=== PATIENT | male | born 1955 | race Caucasian/White ===

== ENCOUNTER 2019-12-13 13:52 | Outpatient (REF) | payer BC, SELFPAY | END 2019-12-13 13:53 | disposition home or self-care (01) | LOC: HO.SCI 13:52 | DX: Z13.89 Encounter for screening for other disorder (principal) ==

== ENCOUNTER 2019-12-25 13:55 | Outpatient (REF) | payer BC, SELFPAY ==
--- NOTE | 2019-12-25 | US_ITS ---
EXAMINATION: US EXTRACRANIAL CAROTID DUPLEX, BILATERAL CLINICAL INFORMATION: Conclusion an stenosis of left carotid artery. COMPARISON: None TECHNIQUE: Real-time ultrasound and Doppler techniques (integrating B-mode 2-D vascular images, Doppler spectral analysis and color-flow Doppler imaging) were utilized to interrogate the extracranial carotid arteries, the vertebral arteries and proximal subclavian arteries bilaterally. The degree of stenosis is determined by criteria similar to NASCET. FINDINGS: Right Side: 1. There is no atherosclerotic plaque seen in the bifurcation/proximal ICA region. 2. The common carotid artery PSV proximally is 91 cm/s and distally 83 cm/s. 3. The proximal internal carotid artery velocities are 67 cm/s systolic and 28 cm/s diastolic. 4. The proximal external carotid artery PSV is 94 cm/s. 5. The vertebral artery shows antegrade flow. 6. The subclavian artery waveforms are normal. Left Side: 1. There is no atherosclerotic plaque seen in the bifurcation/proximal ICA region. 2. The common carotid artery PSV proximally is 135 cm/s and distally 90 cm/s. 3. The proximal internal carotid artery velocities are 59 cm/s systolic and 16 cm/s diastolic. 4. The proximal external carotid artery PSV is 76 cm/s. 5. The vertebral artery shows antegrade flow. 6. The subclavian artery waveforms are normal. IMPRESSION: 1. RIGHT: Normal right internal carotid artery without atherosclerotic plaque or hemodynamically significant stenosis. 2. LEFT: Normal left internal carotid artery without atherosclerotic plaque or hemodynamically significant stenosis.
[2019-12-25 15:14] LABS: MANUAL DIFF FLAG NO
[2019-12-25 15:20] LABS: Basophils Percent Auto 0.6 % (0-2); Eosinophils Absolute Auto 0.3 X10*3/uL (0.0-0.4); Eosinophils Percent Auto 5.8 % (0-4); Hematocrit 43.8 % (42-52); Hemoglobin 14.5 g/dl (14.0-18.0); Imm Gran Abs Auto 0.02 X10*3/uL (0.00-0.03); Imm Gran Pct Auto 0.4 % (0.0-0.4); Lymphocytes Absolute Auto 1.4 X10*3/uL (1.2-4.9); Lymphocytes Percent Auto 26.3 % (20-40); Mean Corpuscular HGB Conc 33.1 g/dl (31.0-36.0); Mean Corpuscular Hemoglobin 30.7 pg (27.0-33.0); Mean Corpuscular Volume 92.8 fL (80-98); Mean Platelet Volume 9.9 fL (9.4-12.4); Monocytes Absolute Auto 0.5 X10*3/uL (0.1-1.2); Monocytes Percent Auto 10.1 % (2-11); Neutrophils Absolute Auto 3.1 X10*3/uL (2.0-8.3); Neutrophils Percent Auto 56.8 % (45-73); Platelet Count 209 X10*3/uL (160-400); Red Blood Count 4.72 X10*6/uL (4.60-5.80); Red Cell Distribution Width 13.5 % (11.0-16.0); White Blood Count 5.4 X10*3/uL (4.8-10.8)
[2019-12-25 15:50] LABS: Alanine Aminotransferase 26 U/L (0-40); Albumin Level 4.3 g/dL (3.5-5.0); Alkaline Phosphatase 51 U/L (39-117); Anion Gap 11 (12-20); Aspartate Amino Transferase 23 U/L (5-37); Bilirubin Total 0.7 mg/dL (0.0-1.0); Blood Urea Nitrogen 16 mg/dL (9-16); Calcium 9.5 mg/dL (8.4-10.2); Carbon Dioxide 29 mmol/L (22-29); Chloride 105 mmol/L (96-108); Cholesterol 216 mg/dL; Estimated Glomerular Filt Rate 60; Glucose Random 100 mg/dL (60-115); HDL Cholesterol 47 mg/dL; LDL Cholesterol Calculated 147 mg/dl; Magnesium 2.1 mg/dL (1.6-2.6); Potassium 5.2 mmol/l (3.3-5.1); Sodium 140 mmol/L (135-145); Total Protein 7.1 g/dL (6.5-8.0); Triglycerides 112 mg/dL
[2019-12-25 16:49] LABS: Prostate Specific Antigen 5.99 ng/mL (<0.05-4.0)
[2019-12-31 11:27] LABS: Testosterone, Total 671 ng/dL (250-1100)
== END 2019-12-25 13:56 | disposition home or self-care (01) ==
LOC: HO.US 13:55
PROVIDERS: PCP Internal Medicine Medical Oncology; Visit Provider Internal Medicine Medical Oncology
DX: I65.22 Occlusion and stenosis of left carotid artery (principal)
CPT/HCPCS: 36415; 80053; 80061; 83735; 84153; 84403; 85025; 93880

== ENCOUNTER 2020-01-18 10:15 | Outpatient (REF) | payer BC, SELFPAY ==
[2020-01-18 11:31] LABS: Cholesterol 216 mg/dL; HDL Cholesterol 45 mg/dL; LDL Cholesterol Calculated 146 mg/dl; Triglycerides 127 mg/dL
[2020-01-18 11:52] LABS: Free T4 (Free Thyroxine) 1.03 ng/dL (0.71-1.85); Prostate Specific Antigen 1.92 ng/mL (<0.05-4.0); Thyroid Stimulating Hormone 3.09 uIU/mL (0.32-4.0)
[2020-01-22 16:42] LABS: Testosterone, Total 651 ng/dL (250-1100)
== END 2020-01-18 10:16 | disposition home or self-care (01) ==
LOC: HO.LAB 10:15
PROVIDERS: Visit Provider Internal Medicine Medical Oncology
DX: I10 Essential (primary) hypertension (principal)
CPT/HCPCS: 80061; 84153; 84403; 84439; 84443

== ENCOUNTER 2022-11-15 13:33 | Outpatient (REF) | payer BC, SELFPAY ==
[2022-11-15 13:58] LABS: MANUAL DIFF FLAG NO
[2022-11-15 14:33] LABS: Basophils Percent Auto 0.8 % (0-2); Eosinophils Absolute Auto 0.3 X10*3/uL (0.0-0.4); Eosinophils Percent Auto 4.8 % (0-4); Hematocrit 43.7 % (42.0-52.0); Hemoglobin 14.8 g/dl (14.0-18.0); Imm Gran Abs Auto 0.01 X10*3/uL (0.00-0.03); Imm Gran Pct Auto 0.2 % (0.0-0.4); Lymphocytes Absolute Auto 1.5 X10*3/uL (1.2-4.9); Lymphocytes Percent Auto 29.6 % (20-40); Mean Corpuscular HGB Conc 33.9 g/dl (31.0-36.0); Mean Corpuscular Hemoglobin 31.2 pg (27.0-33.0); Mean Platelet Volume 10.5 fL (9.4-12.4); Monocytes Absolute Auto 0.6 X10*3/uL (0.1-1.2); Neutrophils Absolute Auto 2.8 x10*3/uL (2.0-8.3); Neutrophils Percent Auto 53.6 % (45-73); Platelet Count 206 X10*3/uL (160-400); Red Blood Count 4.75 X10*6/uL (4.60-5.80); White Blood Count 5.2 X10*3/uL (4.8-10.8)
[2022-11-15 15:35] LABS: Alanine Aminotransferase 22 U/L (0-40); Albumin Level 4.2 g/dL (3.5-5.0); Alkaline Phosphatase 53 U/L (39-117); Anion Gap 12 (12-20); Aspartate Amino Transferase 21 U/L (5-37); Bilirubin Total 0.9 mg/dL (0.0-1.0); Blood Urea Nitrogen 19 mg/dL (9-16); Carbon Dioxide 27 mmol/L (22-29); Chloride 107 mmol/L (96-108); Cholesterol 198 mg/dL (<200); Estimated Glomerular Filt Rate > 60; Glucose Fasting 97 mg/dL (60-99); HDL Cholesterol 42 mg/dL (>40); Iron 149 mcg/dL (45-160); LDL Cholesterol Calculated 128 mg/dL (<100); Percent Iron Saturation 58 % (15-50); Potassium 4.6 mmol/L (3.3-5.1); Sodium 141 mmol/L (135-145); Total Iron Binding Capacity 256 mcg/dL (228-428); Total Protein 7.1 g/dL (6.5-8.0); Triglycerides 142 mg/dL (<150); Unsaturated Iron Binding 107 ug/dL
[2022-11-15 15:39] LABS: Ferritin 331 ng/mL (20-250); T4 Thyroxine 8.9 ug/dL (4.5-12.0); Thyroid Stimulating Hormone 0.97 uIU/mL (0.32-4.0); Vitamin D 25-OH Total 49.8 ng/mL (>30)
[2022-11-15 15:41] LABS: Prostate Specific Antigen 1.05 ng/mL (<0.05-4.0)
[2022-11-17 04:49] LABS: T3 Uptake 27 % (22-35)
== END 2022-11-15 13:34 | disposition home or self-care (01) ==
LOC: HO.LAB 13:33
PROVIDERS: Visit Provider Internal Medicine Medical Oncology
DX: E66.3 Overweight (principal); R53.83 Other fatigue; E03.9 Hypothyroidism, unspecified; E55.9 Vitamin D deficiency, unspecified; Z12.5 Encounter for screening for malignant neoplasm of prostate; I10 Essential (primary) hypertension; L30.9 Dermatitis, unspecified; D64.9 Anemia, unspecified
CPT/HCPCS: 36415; 80053; 80061; 82306; 82728; 83540; 84153; 84436; 84443; 84479; 85025

== ENCOUNTER 2023-05-24 16:36 | Outpatient (REF) | payer MEDICARE, SELFPAY ==
[2023-05-24 16:50] LABS: MANUAL DIFF FLAG NO
[2023-05-24 17:41] LABS: Basophils Percent Auto 0.7 % (0-2); Eosinophils Absolute Auto 0.3 X10*3/uL (0.0-0.4); Eosinophils Percent Auto 5.2 % (0-4); Hematocrit 43.8 % (42.0-52.0); Hemoglobin 14.9 g/dl (14.0-18.0); Imm Gran Abs Auto 0.01 X10*3/uL (0.00-0.03); Imm Gran Pct Auto 0.2 % (0.0-0.4); Lymphocytes Absolute Auto 1.8 X10*3/uL (1.2-4.9); Lymphocytes Percent Auto 32.9 % (20-40); Mean Corpuscular Volume 91.1 fL (80.0-98.0); Mean Platelet Volume 10.3 fL (9.4-12.4); Monocytes Absolute Auto 0.6 X10*3/uL (0.1-1.2); Monocytes Percent Auto 11.2 % (2-11); Neutrophils Absolute Auto 2.7 x10*3/uL (2.0-8.3); Neutrophils Percent Auto 49.8 % (45-73); Platelet Count 177 X10*3/uL (160-400); Red Blood Count 4.81 X10*6/uL (4.60-5.80); Red Cell Distribution Width 13.4 % (11.0-16.0); White Blood Count 5.4 X10*3/uL (4.8-10.8)
[2023-05-24 18:31] LABS: Alanine Aminotransferase 18 U/L (0-40); Albumin Level 4.1 g/dL (3.5-5.0); Alkaline Phosphatase 53 U/L (39-117); Anion Gap 10 (12-20); Aspartate Amino Transferase 18 U/L (5-37); Bilirubin Total 0.7 mg/dL (0.0-1.0); Blood Urea Nitrogen 20 mg/dL (9-16); Calcium 9.4 mg/dL (8.4-10.2); Carbon Dioxide 29 mmol/L (22-29); Chloride 106 mmol/L (96-108); Estimated Glomerular Filt Rate 57; Glucose Random 100 mg/dL (60-115); Potassium 3.9 mmol/L (3.3-5.1); Sodium 141 mmol/L (135-145); Total Protein 7.2 g/dL (6.5-8.0)
[2023-05-24 18:47] LABS: Free T4 (Free Thyroxine) 1.11 ng/dL (0.71-1.85); Thyroid Stimulating Hormone 0.91 uIU/mL (0.32-4.0); Vitamin D 25-OH Total 48.6 ng/mL (>30)
== END 2023-05-24 16:37 | disposition home or self-care (01) ==
LOC: HO.LAB 16:36
PROVIDERS: PCP Internal Medicine Medical Oncology; Visit Provider Internal Medicine Medical Oncology
DX: E66.3 Overweight (principal); I10 Essential (primary) hypertension; E03.8 Other specified hypothyroidism; E55.9 Vitamin D deficiency, unspecified
CPT/HCPCS: 36415; 80053; 82306; 84439; 84443; 85025

== ENCOUNTER 2024-01-12 11:41 | Outpatient (REF) | payer MEDICARE, SELFPAY ==
[2024-01-12 12:06] LABS: MANUAL DIFF FLAG NO
[2024-01-12 12:50] LABS: Basophils Absolute Auto 0.1 X10*3/uL (0.0-0.2); Basophils Percent Auto 0.9 % (0-2); Eosinophils Absolute Auto 0.3 X10*3/uL (0.0-0.4); Eosinophils Percent Auto 4.9 % (0-4); Hematocrit 43.5 % (42.0-52.0); Hemoglobin 14.5 g/dl (14.0-18.0); Imm Gran Abs Auto 0.02 X10*3/uL (0.00-0.03); Imm Gran Pct Auto 0.4 % (0.0-0.4); Lymphocytes Absolute Auto 1.7 X10*3/uL (1.2-4.9); Lymphocytes Percent Auto 29.1 % (20-40); Mean Corpuscular HGB Conc 33.3 g/dl (31.0-36.0); Mean Corpuscular Hemoglobin 30.6 pg (27.0-33.0); Mean Corpuscular Volume 91.8 fL (80.0-98.0); Mean Platelet Volume 9.9 fL (9.4-12.4); Monocytes Absolute Auto 0.6 X10*3/uL (0.1-1.2); Monocytes Percent Auto 10.9 % (2-11); Neutrophils Absolute Auto 3.1 x10*3/uL (2.0-8.3); Neutrophils Percent Auto 53.8 % (45-73); Platelet Count 217 X10*3/uL (160-400); Red Blood Count 4.74 X10*6/uL (4.60-5.80); Red Cell Distribution Width 13.4 % (11.0-16.0); White Blood Count 5.7 X10*3/uL (4.8-10.8)
[2024-01-12 13:34] LABS: Alanine Aminotransferase 32 U/L (0-40); Albumin Level 4.2 g/dL (3.5-5.0); Alkaline Phosphatase 59 U/L (39-117); Anion Gap 11 (12-20); Aspartate Amino Transferase 29 U/L (5-37); Blood Urea Nitrogen 19 mg/dL (9-16); Calcium 9.7 mg/dL (8.4-10.2); Carbon Dioxide 26 mmol/L (22-29); Chloride 107 mmol/L (96-108); Cholesterol 204 mg/dL (<200); Estimated Glomerular Filt Rate 59; Glucose Fasting 99 mg/dL (60-99); HDL Cholesterol 55 mg/dL (>40); LDL Cholesterol Calculated 131 mg/dL (<100); Potassium 4.6 mmol/L (3.3-5.1); Sodium 139 mmol/L (135-145); Total Protein 7.4 g/dL (6.5-8.0); Triglycerides 94 mg/dL (<150)
[2024-01-12 13:41] LABS: Free T4 (Free Thyroxine) 1.11 ng/dL (0.71-1.85); Thyroid Stimulating Hormone 1.75 uIU/mL (0.32-4.0)
== END 2024-01-12 11:42 | disposition home or self-care (01) ==
LOC: HO.LAB 11:41
PROVIDERS: PCP Internal Medicine Medical Oncology; Visit Provider Internal Medicine Medical Oncology
DX: E66.3 Overweight (principal); I10 Essential (primary) hypertension; E03.9 Hypothyroidism, unspecified
CPT/HCPCS: 36415; 80053; 80061; 84439; 84443; 85025

== ENCOUNTER 2024-05-17 10:33 | Outpatient (REF) | payer MEDICARE, SELFPAY ==
[2024-05-17 11:01] LABS: MANUAL DIFF FLAG NO
[2024-05-17 11:11] LABS: Basophils Absolute Auto 0.1 X10*3/uL (0.0-0.2); Basophils Percent Auto 0.9 % (0-2); Eosinophils Absolute Auto 0.3 X10*3/uL (0.0-0.4); Eosinophils Percent Auto 4.4 % (0-4); Hematocrit 41.1 % (42.0-52.0); Hemoglobin 14.2 g/dl (14.0-18.0); Imm Gran Abs Auto 0.02 X10*3/uL (0.00-0.03); Imm Gran Pct Auto 0.3 % (0.0-0.4); Lymphocytes Absolute Auto 1.9 X10*3/uL (1.2-4.9); Lymphocytes Percent Auto 27.4 % (20-40); Mean Corpuscular HGB Conc 34.5 g/dl (31.0-36.0); Mean Corpuscular Hemoglobin 31.1 pg (27.0-33.0); Mean Corpuscular Volume 90.1 fL (80.0-98.0); Mean Platelet Volume 9.6 fL (9.4-12.4); Monocytes Absolute Auto 0.7 X10*3/uL (0.1-1.2); Monocytes Percent Auto 10.2 % (2-11); Neutrophils Percent Auto 56.8 % (45-73); Platelet Count 180 X10*3/uL (160-400); Red Blood Count 4.56 X10*6/uL (4.60-5.80); Red Cell Distribution Width 13.5 % (11.0-16.0)
[2024-05-17 11:53] LABS: Alanine Aminotransferase 28 U/L (0-40); Albumin Level 3.8 g/dL (3.5-5.0); Alkaline Phosphatase 60 U/L (39-117); Anion Gap 8 (12-20); Aspartate Amino Transferase 25 U/L (5-37); Bilirubin Total 0.7 mg/dL (0.0-1.0); Blood Urea Nitrogen 27 mg/dL (9-16); Carbon Dioxide 26 mmol/L (22-29); Chloride 110 mmol/L (96-108); Cholesterol 188 mg/dL (<200); Estimated Glomerular Filt Rate 50; Glucose Fasting 90 mg/dL (60-99); HDL Cholesterol 48 mg/dL (>40); LDL Cholesterol Calculated 125 mg/dL (<100); Sodium 140 mmol/L (135-145); Total Protein 7.1 g/dL (6.5-8.0); Triglycerides 75 mg/dL (<150)
[2024-05-17 12:09] LABS: Free T4 (Free Thyroxine) 1.08 ng/dL (0.71-1.85); Thyroid Stimulating Hormone 2.32 uIU/mL (0.32-4.0)
--- OUTSIDE RECORDS SUMMARY | 2024-05-17 13:17 | XMS_ITS ---
Author Organization Maury Carey III, MD Address [address] [place] [place] [address] Care Team Providers Care Coin Box Collector Name Role Phone Maury Carey Primary Care Provider REASON FOR VISIT Rx [...] Date Provider Diagnosis Maury Carey III, MD [address] [place] [address] [place] [address] 11/23/2023 Maury Carey Plan Of Treatment Medication Medication Name Sig Start Date Stop Date Notes buPROPion HCl ER (SR) 100 MG 1 tablet in the morning Orally Once a day for 30 days 05/24/2023 Next Appt Details Provider Name:Maury Carey, 05/21/2024 10:30:00 AM, [address] [place] [address] [place], [address], Provider Name:Maury Carey, 01/21/2025 03:00:00 PM, [address] [place] [address] [place], [address], Progress Notes * Javier VUOB:1955 (68 yo M)Acc No.[id number]:11/23/2023 Patient:?Quique Vu :1955???Age:68 Y???Sex:Male Address: [address], [place], [address] * Refills? Refill buPROPion HCl ER (SR) Tablet Extended Release 12 Hour, 100 MG, Orally, 30 Tablet, 1 tablet in the morning, Once a day, 30 days, Refills=11 * true * Date:? Generated for Olga Lidia rogers/Helen/eTransmitting on:?05/17/2024 01:17 PM EDT
--- OUTSIDE RECORDS SUMMARY | 2024-05-17 13:17 | XMS_ITS ---
Author Organization Maury Carey III, MD Address [address] [address] Care Team Providers Care Web Marketing Intern Name Role Phone Maury Carey Primary Care Provider REASON FOR VISIT Follow Up Social History Sex Assigned At : Social History Observation Description Sex Assigned At Male Encounters Encounter Location Date Provider Diagnosis Maury Carey III, MD [address] [place] [address] [address] [facility] [facility] [place] [address] 11/25/2023 Maury Carey Plan Of Treatment Next Appt Details Provider Name:Maury Carey, 05/21/2024 10:30:00 AM, [address] [place] [address] [place], [address], Provider Name:Maury Carey, 01/21/2025 03:00:00 PM, [address] [place] [address] [place], [address], Progress Notes * Javier COLESOB:1955 (68 yo M)Acc No.[id number]:11/25/2023 Progress Notes Patient:?Quique COLES Provider:?Maury Carey MD :1955???Age:68 Y???Sex:Male Frank e:11/25/2023 [address] [facility] [id number] Subjective: * Chief Complaints: * ???1. Follow Up. * Medical History:? Objective: * Vitals:? Assessment: Plan: * Treatment: * Images: * The named appointment provid er may or may not be the originator of this progress note, and it is not deemed complete until electronically signed by the appointment provider. Sign off status: Pending * Provider:?Maury Carey MD Date:?11/06 Generated for Olga Lidia rogers/Helen/Yohana on:?05/17/2024 01:17 PM EDT
--- OUTSIDE RECORDS SUMMARY | 2024-05-17 13:17 | XMS_ITS ---
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 Name Role Phone Maury Carey Primary Care Provider Allergies Allergen (clinical drug [...] Date Provider Diagnosis Maury Carey III, MD [address] [place] [address] [place], [place] [id number] 01/17/2024 Maury Carey Hypothyroidism E03.9 ; Essential [...] Up: 4 Months, Reason: OV Provider Name:Maury Grijalvane, 05/21/2024 10:30:00 AM, [address] [place] [address] [address], [place], [phone], Provider Name:Maury Grijalvane, 01/21/2025 03:00:00 PM, [address] [place] [address] [address], [place], [phone], Progress Notes * MAGALYSBHARTI JavierOB:1955 (68 yo M)Acc No.[id number]:01/17/2024 Progress Notes Patient:?Quique VU Provider:?Maury Carey MD :1955???Age:68 Y???Sex:Male Frank e:01/17/2024 [facility] [id number] Subjective: * Chief Complaints: * ???Annual Exam review labs * HPI: ???Depression Screening:?PHQ-9?Little interest or pleasure in doing things?Not at all ?Feeling down, depressed, or hopeless?Not at all ?Trouble falling or staying asleep, or sleeping too much?Not at all ?Feeling tired or having little energy?Not at all ?Poor appetite or overeating?Not at all ?Feeling bad about yourself or that you are a failure, or have let yourself or your family down?Not at all ?Trouble concentrating on things, such as reading the newspaper or watching television?Not at all ?Moving or speaking so slowly that other people could have noticed; or the opposite, being so fidgety or restless that you have been moving around a lot more than usual?Not at all ?Thoughts that you would be better off or of hurting yourself in some way?Not at all ?Total Score?0 ???COVID-19 Screening:?Questions?Have you experienced fever, chills, cough, sore throat, shortness of breath, difficulty breathing, muscle aches, loss of taste or smell??No ?Have you been exposed to the virus within the last 10 days??No ?Have you travelled internationally in the last 10 days??No ?Have you been exposed to COVID-19 in the past??No ???Fall Risk Screening:?Fall History?Have you had any falls with injury in the past year??No ?Have you had two or more falls in the past year??No ?Fall Risk Assessment:?SDOH Questions:?SDOH Questions?In the past year have you been worried about losing your housing??No ?In the past year have you or any family members you live with been unable to get any of the following when it was really needed? Check all that apply:?None ???:? The patient, a 68-year-old male, presented with persistent skin issues, particularly on his feet. He described the condition as itchy and noted that it had been worsening, with the symptoms spreading. He had been using qgap-pby-pclvplk antifungal medication, but it did not seem [...] issues. Blood Sugar Level is 99. * ROS:?General/Constitutional:?pain?only normal aches and pains.?Chills?denies.?Fatigue?admits.?Fever?denies.?ENT:?Decreased hearing?denies.?Respiratory:?Cough?denies.?Cardiovascular:?Chest pain with exertion?denies.?Dyspnea on exertion?denies.?Shortness of breath?denies.?Gastrointestinal:?Constipation?occasional.?Decreased appetite?denies.?Diarrhea?denies.?Denies?Heartburn,?occasional.?Nausea?denies.?R ectal bleeding?denies.?Vomiting?denies.?Hematology:?bruising?denies.?petechiae?denies.?Swollen glands?none have been noted.?Genitourinary:?Frequent urination?once a night.?Musculoskeletal:?Muscle aches?denies.?Painful joints?denies.?Sciatica?denies.?Weakness?denies.?Skin:?Itching?denies.?Rash?denies.?Skin lesion(s)?denies.?Neurologic:?Difficulty speaking?denies.?Dizziness?denies.?Headache?denies.?Low back pain?denies.?Psychiatric:?Depressed mood?which is mild.? * Medical History:? * Surgical History:?Tonsilecto my * Hospitalization/Major Diagno stic Procedure:?Denies Past Hospitalization * Family History:?Father: dece ased 88 yrs, No information, diagnosed with CVD.?Mother: 84 yrs, History of breast cancer, diagnosed with CVD.?2 brother(s) , 2 sister(s) - healthy. 2 daughter(s) - healthy. .? His mother has a history of breast cancer. He is not aware of any other cases of breast cancer uterine cancer colon cancer prostate cancer or pancreatic cancer. He is not aware of any inherited cancer syndromes in his family. His children and grand child are healthy and well. 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 He was born in [facility]. He was in 2010. He has 2 healthy daughters one of whom has back issues. He has 1 healthy grandchild. He does not smoke or drink alcohol. He is living with a significant other, Gabrielle. * Medications:?TakingVardenafi l HCl 20 MG Tablet 1 tablet 60 [...] reviewed and reconciled with the patient * Allergies:?No Known Drug All ergySeasonaleno[Allergies Verified] Objective: * Vitals:?Ht: 70, Wt:168, BMI: 24.1, BP:125/75, HR:79, Temp:97.8, Wt-k.2. * ???Past Orders: Lab:[facility] * Collection Date 01/12/2024 11/15/2022 Collection [...] 27 (Ref Range: 22-29 mmol/L) Anion Gap 11?L (Ref Range: 12-20) 12 (Ref Range: 12-20) Blood Urea Nitrogen 19?H (Ref Range: 9-16 mg/dL) 19?H (Ref Range: 9-16 mg/dL) Creatinine 1.21 (Ref [...] mg/dL) 142 (Ref Range: <150 mg/dL) Cholesterol 204?H (Ref Range: <200 mg/dL) 198 (Ref Range: <200 mg/dL) LDL Cholesterol Calculated 131?H (Ref Range: <100 mg/dL) 128?H (Ref Range: <100 mg/dL) HDL Cholesterol 55 [...] 01:57 PM Order Date 01/12/2024 05/24/2023 11/15/2022 Thyroid Stimulating Hormone 1.75 (Ref Range: 0.32-4.0 [...] Percent Auto 10.9 (Ref Range: 2-11 %) 11.2?H (Ref Range: 2-11 %) 11.0 (Ref Range: 2-11 %) Eosinophils Percent Auto 4.9?H (Ref Range: 0-4 %) 5.2?H (Ref Range: 0-4 %) 4.8?H (Ref Range: 0-4 %) Basophils Percent Auto [...] 0.000 (Ref Range: 0.0-0.012 X10*3/uL) * Examination: ???General Examination: ?GENERAL APPEARANCE:?pleasant, well nourished, well developed, in no acute distress, calm and relaxed, man.?HEAD:?atraumatic, normocephalic.?EYES:?eomi, perrla, anicteric, conjugate.?EARS:?normal.?NOSE:?septum intact.?ORAL CAVITY:?normal, unremarkable.?NECK/THYROID:?no jugular venous distention, no carotid bruit, thyroid normal.?LYMPH NODES:?no enlarged lymph nodes,spleen normal.?SKIN:?no suspicious lesions, anicteric.?HEART:?no clicks, gallops, murmurs, or rubs, regular rhythm, S1, S2 normal, no s3, or vascular bruits.?LUNGS:?clear to auscultation .?BREASTS:??no masses palpable bilaterally.?ABDOMEN:?bowel sounds normal, no ascites, no organomegaly, no mass.?RECTAL EXAM:?, normal tone, no external hemorrhoids, no masses palpable, no melena, prostate normal, no red blood, stool guaiac negative.?MUSCULOSKELETAL:?extremities unremarkable, no clubbing, cyanosis or edema.?PERIPHERAL PULSES:?normal.?NEUROLOGIC:?alert and oriented, cranial nerves 2-12 grossly intact, deep tendon reflexes 2+ symmetrical, motor strength normal upper and lower extremities, sensory exam intact.?PSYCH:?, alert, oriented, cognitive function intact, speech clear, thought process logical, goal directed.? Assessment: * Assessment: 1.?Hypothyroidism - E03.9 (P rimary)???Notes :His thyroid function tests are within normal limits.? No changes to his medications was necessary.???2.?Essential hypertension - I10???Notes :His blood pressure remains well controlled? and no change in his regimen was needed.???3.?History of depression - Z86.59???Notes :He hasBeen feeling much better while taking the bupropion. The dose was increased and he will continue on it. His depression is beginning to resolve. A follow-up visit was arranged.???4.?Vitamin D deficiency, unspecified - E55.9???Notes :He will continue on vitamin D.???5.?BPH (benign prostatic hypertrophy) - N40.0???Notes :He arises from sleep once or twice a night to urinate. No change in his regimen is needed. We discussed lifestyle modification as a way to to reduceNocturia.???6.?Balanitis - N48.1???Notes :This has completely resolved??? Plan: * Treatment: 2.?Others? Continue buPROPion HCl ER (SR) Tablet Extended Release 12 Hour, 100 MG, 1 tablet in the morning, Orally, Once a day;?Continue Vardenafil HCl Tablet, 20 MG, 1 tablet 60 minutes before sexual activity as needed, Orally, Once a day;?Continue Levothyroxine Sodium Tablet, 50 MCG, TAKE 1 TABLET BY MOUTH EVERY DAY IN THE MORNING ON EMPTY STOMACH FOR 30 DAYS;?Continue Zinc Tablet, 100 MG, 1 tablet, Orally, Once a day;?Continue Vitamin C Tablet, 1000 MG, 1 tablet, Orally, Once a day;?Continue Triamcinolone Acetonide Cream, 0.025 %, 1 application, Externally, Once a day.?? * Procedure Codes:? * Preventive Medicine:? ??Counseling:?Care goal follow-up plan:?Counseling for abnormal BMI given?Yes ?Above Normal BMI Follow-up?Dietary management education, guidance, and counseling * Follow Up:?4 Months (Reason: OV) * Images: * Sign off status: Completed true * Provider:?Maury Carey MD Date:?01/05 Generated for Olga Lidia rogers/Helen/Desmonditting on:?05/17/2024 01:17 PM EDT History and Physical Notes * HPI (History [...]
--- OUTSIDE RECORDS SUMMARY | 2024-05-17 13:17 | XMS_ITS | Clinical Summary ---
Author Organization [facility] ity Address [address] [place] [address] Care Team Providers Care Armature Bander Name Role Phone Unavailable Primary Care Provider Unavailabl e Social History Tobacco Use Types Packs/Day Years Used Date Smoking Tobacco: Never Assessed Sex and Gender Information Value Date Recorded Sex Assigned at Not on file Legal Sex Male 3:26 PM EST Gender Identity Not on file Sexual Orientation Not on file Plan of Treatment Health Maintenance Due Date Last Done Comments DTaP,Tdap,and Td Vaccines (1 - Tdap) 1973 Pneumococcal Vaccine: 50+ Ye ars (1 of 1 - PCV) 2004 Zoster Vaccines (1 of 2) 2004 Abdominal Aortic Aneurysm (A AA) Screen 02/03/2022 Cholesterol Screening (Lipid Panel) 02/03/2022 Colorectal Cancer Screening: Colonoscopy 02/03/2022 Depression Screening 02/03/2022 Falls Risk Assessment 02/03/2022 Hepatitis C Screening 02/03/2022 Social Influencers of Health Screening 02/03/2022 COVID-19 Vaccine ( - 2023-2 5 season) 2023 Influenza Vaccine (#1) 2023 RSV Immunization Patients 60 + Years Old (1 - 1-dose 75+ series) 2029 HIB Vaccines Aged Out No longer eligi ble based on patient's age to complete this topic HPV Vaccines Aged Out No longer eligi ble based on patient's age to complete this topic Hepatitis A Vaccines Aged Out No long er eligible based on patient's age to complete this topic Hepatitis B Vaccines Aged Out No long er eligible based on patient's age to complete this topic IPV Vaccines Aged Out No longer eligi ble based on patient's age to complete this topic MMR Vaccines Aged Out No longer eligi ble based on patient's age to complete this topic Meningococcal ACWY Vaccine Aged Out N o longer eligible based on patient's age to complete this topic Meningococcal B Vacine Aged Out No lo nger eligible based on patient's age to complete this topic RSV Immunization Patients Un santi 20 months Aged Out No longer eligible b ased on patient's age to complete this topic Varicella Vaccines Aged Out No longer eligible based on patient's age to complete this topic
--- OUTSIDE RECORDS SUMMARY | 2024-05-17 13:18 | XMS_ITS | Patient Health Record ---
Author Organization Maury Carey III, MD Address [address] [place] [address] Care Team Providers Care Staking Engineer Name Role Phone Maury Carey Primary Care Provider [phone] Allergies Allergen (clinical drug ingredient) Drug/Non Drug Allergy documented on EMR Reaction Allergy Type Onset Date Status No Known Drug Allergy Unknown Drug Allergy Active Seasonale Unknown Drug Allergy Active Results Component Value Reference Range Notes Vitamin D 25-OH Total Reviewed date:06/15/2023 04:07:28 PM Interpretation: Performing Lab:[facility], [address] [place] [phone] Notes/Report: Vitamin D 25-OH Total 48.6 >30 ng/mL Health Based Reference Values* < 20 ng/mL Deficient 20-30 ng/mL Insufficient > 30 ng/mL Sufficient *Fabienne ORTIZ. N Engl J Med. 2007;357:266-280 Care must be taken in interpreting Vitamin D results from different laboratories and methodologies. Published data demonstrated that results from patients undergoing hemodialysis may show a negative bias when tested with various automated 25-OH vitamin D assays when compared to LC-MS/MS. When testing samples from patients whose predominant form of Vitamin D is Vitamin D2, such as patients receiving Vitamin D2 supplementation, results that are subtherapeutic should be confirmed with another method such as LC-MS/MS. Complete Blood Count Auto Di ff Reviewed date:06/15/2023 04:07:28 PM Interpretation: Performing Lab:[facility], [address] [place] [phone] Notes/Report: White Blood Count 5.4 4.8-10.8 X10*3/uL Red Blood Count 4.81 4.60-5.80 X10*6/uL Hemoglobin 14.9 14.0-18.0 g/dl Hematocrit 43.8 42.0-52.0 % Mean Corpuscular Volume 91.1 80.0-98.0 fL Mean Corpuscular Hemoglobin 31.0 27.0-33.0 pg Mean Corpuscular HGB Conc 34.0 31.0-36.0 g/dl Red Cell Distribution Width 13.4 11.0-16.0 % Platelet Count 177 160-400 X10*3/uL Mean Platelet Volume 10.3 9.4-12.4 fL Neutrophils Percent Auto 49.8 45-73 % Imm Gran Pct Auto 0.2 0.0-0.4 % Lymphocytes Percent Auto 32.9 20-40 % Monocytes Percent Auto 11.2 2-11 % Eosinophils Percent Auto 5.2 0-4 % Basophils Percent Auto 0.7 0-2 % NRBC Pct Auto 0.0 0.0-0.2 /100WBC Neutrophils Absolute Auto 2.7 2.0-8.3 x10*3/u L Imm Gran Abs Auto 0.01 0.00-0.03 X10*3/uL Lymphocytes Absolute Auto 1.8 1.2-4.9 X10*3/u L Monocytes Absolute Auto 0.6 0.1-1.2 X10*3/uL Eosinophils Absolute Auto 0.3 0.0-0.4 X10*3/u L Basophils Absolute Auto 0.0 0.0-0.2 X10*3/uL NRBC Abs Auto 0.000 0.0-0.012 X10*3/uL Comprehensive Met. Panel Reviewed date:06/15/2023 04:07:28 PM Interpretation: Performing Lab:[facility], [address] [place] [phone] Notes/Report: Sodium 141 135-145 mmol/L Potassium 3.9 3.3-5.1 mmol/L Chloride 106 96-108 mmol/L Carbon Dioxide 29 22-29 mmol/L Anion Gap 10 12-20 Blood Urea Nitrogen 20 9-16 mg/dL Creatinine 1.25 0.5-1.4 mg/dL Estimated Glomerular Filt Rate 57 NOTE: For -Stateless individuals, multiply the result by 1.210. Chronic Kidney Disease: Estimated GFR < 60 mL/min/1.73m2 Severe Kidney Disease: Estimated GFR < 15 mL/min/1.73m2 Glucose Random 100 60-115 mg/dL Calcium 9.4 8.4-10.2 mg/dL Bilirubin Total 0.7 0.0-1.0 mg/dL Aspartate Amino Transferase 18 5-37 U/L Alanine Aminotransferase 18 0-40 U/L Total Protein 7.2 6.5-8.0 g/dL Albumin Level 4.1 3.5-5.0 g/dL Alkaline Phosphatase 53 39-117 U/L Free T4 (Free Thyroxine) Reviewed date:06/15/2023 04:07:28 PM Interpretation: Performing Lab:[address] [phone] Notes/Report: Free T4 (Free Thyroxine) 1.11 0.71-1.85 ng/dL Thyroid Stimulating Hormone Reviewed date:06/15/2023 04:07:28 PM Interpretation: Performing Lab:[facility], [address] [place] [phone] Notes/Report: Thyroid Stimulating Hormone 0.91 0.32-4.0 uIU/ mL TSH 3rd Generation ([facility]) Complete Blood Count Auto Di ff Reviewed date:01/17/2024 08:41:43 AM Interpretation: Performing Lab:[facility], [address] [place] [phone] Notes/Report: White Blood Count 5.7 4.8-10.8 X10*3/uL Red Blood Count 4.74 4.60-5.80 X10*6/uL Hemoglobin 14.5 14.0-18.0 g/dl Hematocrit 43.5 42.0-52.0 % Mean Corpuscular Volume 91.8 80.0-98.0 fL Mean Corpuscular Hemoglobin 30.6 27.0-33.0 pg Mean Corpuscular HGB Conc 33.3 31.0-36.0 g/dl Red Cell Distribution Width 13.4 11.0-16.0 % Platelet Count 217 160-400 X10*3/uL Mean Platelet Volume 9.9 9.4-12.4 fL Neutrophils Percent Auto 53.8 45-73 % Imm Gran Pct Auto 0.4 0.0-0.4 % Lymphocytes Percent Auto 29.1 20-40 % Monocytes Percent Auto 10.9 2-11 % Eosinophils Percent Auto 4.9 0-4 % Basophils Percent Auto 0.9 0-2 % NRBC Pct Auto 0.0 0.0-0.2 /100WBC Neutrophils Absolute Auto 3.1 2.0-8.3 x10*3/u L Imm Gran Abs Auto 0.02 0.00-0.03 X10*3/uL Lymphocytes Absolute Auto 1.7 1.2-4.9 X10*3/u L Monocytes Absolute Auto 0.6 0.1-1.2 X10*3/uL Eosinophils Absolute Auto 0.3 0.0-0.4 X10*3/u L Basophils Absolute Auto 0.1 0.0-0.2 X10*3/uL NRBC Abs Auto 0.000 0.0-0.012 X10*3/uL Comprehensive [place]. Panel Fa st Reviewed date:01/17/2024 08:41:43 AM Interpretation: Performing Lab:[facility], [address] [place] [phone] Notes/Report: Sodium 139 135-145 mmol/L Potassium 4.6 3.3-5.1 mmol/L Chloride 107 96-108 mmol/L Carbon Dioxide 26 22-29 mmol/L Anion Gap 11 12-20 Blood Urea Nitrogen 19 9-16 mg/dL Creatinine 1.21 0.5-1.4 mg/dL Estimated Glomerular Filt Rate 59 NOTE: For -Stateless individuals, multiply the result by 1.210. Chronic Kidney Disease: Estimated GFR < 60 mL/min/1.73m2 Severe Kidney Disease: Estimated GFR < 15 mL/min/1.73m2 Glucose Fasting 99 60-99 mg/dL Calcium 9.7 8.4-10.2 mg/dL Bilirubin Total 1.0 0.0-1.0 mg/dL Aspartate Amino Transferase 29 5-37 U/L Alanine Aminotransferase 32 0-40 U/L Total Protein 7.4 6.5-8.0 g/dL Albumin Level 4.2 3.5-5.0 g/dL Alkaline Phosphatase 59 39-117 U/L Lipid Panel Reviewed date:01/17/2024 08:41:43 AM Interpretation: Performing Lab:[facility], [address] [place] [phone] Notes/Report: Triglycerides 94 <150 mg/dL Desirable Triglyceride: less than 150 mg/dL Borderline High Triglyceride 150-199 mg/dL High Triglyceride: 200-499 mg/dL Very High Triglyceride: greater than or equal to 5OO mg/dL Cholesterol 204 <200 mg/dL Desirable Cholesterol: less than 200 mg/dL Borderline High Cholesterol: 200-239 mg/dL High Cholesterol: greater than 239 mg/dL LDL Cholesterol Calculated 131 <100 mg/dL Desirable LDL: less than 100 mg/dL Near Optimal/Above Optimal LDL: 110-129 mg/dL Borderline High LDL: 130-159 mg/dL High LDL: 160-189 mg/dL Very High LDL: greater than or equal to 190 mg/dL HDL Cholesterol 55 >40 mg/dL Desirable HDL: greater than 40 mg/dL Note: This HDL assay may give artificially low results in patients with liver disease. Free T4 (Free Thyroxine) Reviewed date:01/17/2024 08:41:43 AM Interpretation: Performing Lab:[facility], [address] [place] [phone] Notes/Report: Free T4 (Free Thyroxine) 1.11 0.71-1.85 ng/dL Thyroid Stimulating Hormone Reviewed date:01/17/2024 08:41:43 AM Interpretation: Performing Lab:[facility], [address] [place] [phone] Notes/Report: Thyroid Stimulating Hormone 1.75 0.32-4.0 uIU/ mL TSH 3rd Generation ([facility]) Complete Blood Count Auto Di ff (Not yet reviewed by provider) Interpretation: Performing Lab:[facility], [address] [place] [phone] Notes/Report: White Blood Count 7.0 4.8-10.8 X10*3/uL Red Blood Count 4.56 4.60-5.80 X10*6/uL Hemoglobin 14.2 14.0-18.0 g/dl Hematocrit 41.1 42.0-52.0 % Mean Corpuscular Volume 90.1 80.0-98.0 fL Mean Corpuscular Hemoglobin 31.1 27.0-33.0 pg Mean Corpuscular HGB Conc 34.5 31.0-36.0 g/dl Red Cell Distribution Width 13.5 11.0-16.0 % Platelet Count 180 160-400 X10*3/uL Mean Platelet Volume 9.6 9.4-12.4 fL Neutrophils Percent Auto 56.8 45-73 % Imm Gran Pct Auto 0.3 0.0-0.4 % Lymphocytes Percent Auto 27.4 20-40 % Monocytes Percent Auto 10.2 2-11 % Eosinophils Percent Auto 4.4 0-4 % Basophils Percent Auto 0.9 0-2 % NRBC Pct Auto 0.0 0.0-0.2 /100WBC Neutrophils Absolute Auto 4.0 2.0-8.3 x10*3/u L Imm Gran Abs Auto 0.02 0.00-0.03 X10*3/uL Lymphocytes Absolute Auto 1.9 1.2-4.9 X10*3/u L Monocytes Absolute Auto 0.7 0.1-1.2 X10*3/uL Eosinophils Absolute Auto 0.3 0.0-0.4 X10*3/u L Basophils Absolute Auto 0.1 0.0-0.2 X10*3/uL NRBC Abs Auto 0.000 0.0-0.012 X10*3/uL Comprehensive [place]. Panel Fa st (Not yet reviewed by provider) Interpretation: Performing Lab:[facility], [address] [place] [phone] Notes/Report: Sodium 140 135-145 mmol/L Potassium 4.0 3.3-5.1 mmol/L Chloride 110 96-108 mmol/L Carbon Dioxide 26 22-29 mmol/L Anion Gap 8 12-20 Blood Urea Nitrogen 27 9-16 mg/dL Creatinine 1.40 0.5-1.4 mg/dL Estimated Glomerular Filt Rate 50 Chronic Kidney Disease: Estimated GFR < 60 mL/min/1.73m2 Severe Kidney Disease: Estimated GFR < 15 mL/min/1.73m2 Glucose Fasting 90 60-99 mg/dL Calcium 9.0 8.4-10.2 mg/dL Bilirubin Total 0.7 0.0-1.0 mg/dL Aspartate Amino Transferase 25 5-37 U/L Alanine Aminotransferase 28 0-40 U/L Total Protein 7.1 6.5-8.0 g/dL Albumin Level 3.8 3.5-5.0 g/dL Alkaline Phosphatase 60 39-117 U/L Lipid Panel (Not yet reviewe d by provider) Interpretation: Performing Lab:[address] [phone] Notes/Report: Triglycerides 75 <150 mg/dL Desirable Triglyceride: less than 150 mg/dL Borderline High Triglyceride 150-199 mg/dL High Triglyceride: 200-499 mg/dL Very High Triglyceride: greater than or equal to 5OO mg/dL Cholesterol 188 <200 mg/dL Desirable Cholesterol: less than 200 mg/dL Borderline High Cholesterol: 200-239 mg/dL High Cholesterol: greater than 239 mg/dL LDL Cholesterol Calculated 125 <100 mg/dL Desirable LDL: less than 100 mg/dL Near Optimal/Above Optimal LDL: 110-129 mg/dL Borderline High LDL: 130-159 mg/dL High LDL: 160-189 mg/dL Very High LDL: greater than or equal to 190 mg/dL HDL Cholesterol 48 >40 mg/dL Desirable HDL: greater than 40 mg/dL Note: This HDL assay may give artificially low results in patients with liver disease. Free T4 (Free Thyroxine) (No t yet reviewed by provider) Interpretation: Performing Lab:[address] [phone] Notes/Report: Free T4 (Free Thyroxine) 1.08 0.71-1.85 ng/dL Thyroid Stimulating Hormone (Not yet reviewed by provider) Interpretation: Performing Lab:[address] [phone] Notes/Report: Thyroid Stimulating Hormone 2.32 0.32-4.0 uIU/ mL TSH 3rd Generation ([facility]) Reason For Referral No Information Medications Medication SIG (Take, Route, Frequency, Duration) Notes Start Date End Date Status Zinc 100 MG 1 tablet Orally Once a day Active Vitamin C 1000 MG 1 tablet Orally Once a day Active Triamcinolone Acetonide 0.025 % 1 application Externally Once a day 07/27/2023 Active buPROPion HCl ER (SR) 100 MG 1 tablet in the morning Orally Once a day 05/24/2023 Active Vardenafil HCl 20 MG 1 tablet 60 minutes before sexual activity as needed Orally Once a day 09/05/2023 Active Levothyroxine Sodium 50 MCG TAKE 1 TABLE T BY MOUTH EVERY DAY for 90 days Active Immunizations Vaccine Route Administration Date Status Comme nts Influenza High Dose Quadrivalent Unknown 03/24/2022 Adm inistered PPV 23 Unknown 02/03/2022 Administered COVID- 19 Vaccine Unknown 06/19/2020 Administered COVID- 19 Vaccine Unknown 02/22/2021 Administered COVID- 19 Vaccine Unknown 05/22/2020 Administered Social History Tobacco Use: Social History Observation Description Date Details (start date - stop date) Never Smoker NA - NA Sex Assigned At : Social History Observation Description Sex Assigned At Male Tobacco Use/Smoking Question Answer Notes Patient is a nonsmoker Additional Findings: Tobacco Non-User Aggressive non-smoker Alcohol Screen Question Answer Notes Did you have a drink containing alcohol in the p ast year? No Points 0 Interpretation Negative Problems Problem Type SNOMED Code ICD Code Onset Dates Problem Status W/U Status Risk Notes Problem Hypothyroidism (37760385) Hypothyroidism (E03.9) Active confirmed His thyroid function tests are within normal limits. No changes to his medications was necessary. Problem Vitamin D deficiency (70915937) Vitamin D deficiency, unspecified (E55.9) Active confirmed He will continue on vitamin D. Problem [id number] Balanitis (N48.1) Active confirmed This has completely resolved Problem Dermatitis (052524280) Dermatitis (L30.9) Active confirmed No significant cutaneous lesions were present today. Problem Benign prostatic hypertrophy without outflow obstruction (955336480) BPH (benign prostatic hypertrophy) (N40.0) Active confirmed He arises from sleep once or twice a night to urinate. No change in his regimen is needed. We discussed lifestyle modification as a way to to reduceNocturi a. Problem Essential hypertension (92689124) Essential hypertension (I10) Active confirmed His blood pressure remains well controlled and no change in his regimen was needed. Problem History of depression (431787499) History of depression (Z86.59) Active confirmed He hasBeen feeling much better while taking the bupropion. The dose was increased and he will continue on it. His depression is beginning to resolve. A follow-up visit was arranged. Vital Signs Heart Rate 79 /min 01/17/2024 Temperature 97.8 degrees Fahrenheit 01/17/2024 Blood pressure diastolic 75 mm Hg 01/17/2024 Height 70 in 01/17/2024 Blood pressure systolic 125 mm Hg 01/17/2024 Weight 168 lbs 01/17/2024 BMI 24.1 kg/m2 01/17/2024 Encounters Encounter Location Date Provider Diagnosis Maury Carey III, MD [address] [place] [address] [place] [phone] 05/24/2023 Maury Carey Essential hypertensi on I10 ; Hypothyroidism E03.9 ; Vitamin D deficiency, unspecified E55.9 and History of depression Z86.59 Maury Carey III, MD [address] [place] [address] [place] [phone] 06/15/2023 Maury Carey Essential hypertensi on I10 ; History of depression Z86.59 ; Hypothyroidism E03.9 ; Vitamin D deficiency, unspecified E55.9 and BPH (benign prostatic hypertrophy) N40.0 Maury Carey III, MD [address] [place] [address] [place] [phone] 07/27/2023 Maury Carey Essential hypertensi on I10 ; Hypothyroidism E03.9 ; Vitamin D deficiency, unspecified E55.9 and History of depression Z86.59 Maury Carey III, MD [address] [place] [address] [place] [address] 11/22/2023 Maury Carey Balanitis N48.1 ; Essential hypertension I10 ; History of depression Z86.59 and Hypothyroidism E03.9 Maury Carey III, MD [address] [place] [address] [place] [phone] 01/17/2024 Maury Carey Hypothyroidism E03.9 ; Essential hypertension I10 ; History of depression Z86.59 ; Vitamin D deficiency, unspecified E55.9 ; BPH (benign prostatic hypertrophy) N40.0 and Balanitis N48.1 Maury Carey III, MD [address] [place] [address] [place] [phone] 09/05/2023 Maury Carey III, MD [address] [place] [address] [place] [phone] 09/05/2023 Maury Carey III, MD [address] [place] [address] [place] [address] 11/23/2023 Maury Carey Assessments Encounter Date Diagnosis (ICD Code) Assessment Notes Treat ment Notes Treatment Clinical Notes 05/24/2023 Hypothyroidism (ICD-10 - E03.9) His thyroid function tests will be checked periodically along with a comprehensive database. 05/24/2023 Essential hypertension (ICD-10 - I10) His blood pressure is currently stable and no change in his regimen was needed. 06/15/2023 Essential hypertension (ICD-10 - I10) His blood pressure is currently stable and no change in his regimen was needed. 06/15/2023 History of depressio n (ICD-10 - Z86.59) He hasBeen feeling much better while taking the bupropion. The dose was increased and he will continue on it. His depression is beginning to resolve. A follow-up visit was arranged. 07/27/2023 Hypothyroidism (ICD-10 - E03.9) He has been compliant with his therapy and no change in his medications was necessary. 07/27/2023 Essential hypertension (ICD-10 - I10) His blood pressure remains well controlled at 122/71 and no change in his regimen was needed. 11/22/2023 Balanitis (ICD-10 - N48.1) He was given a course of ketoconazole cream. 11/22/2023 Essential hypertension (ICD-10 - I10) His blood pressure remains well controlled at 122/71 and no change in his regimen was needed. 01/17/2024 Hypothyroidism (ICD-10 - E03.9) His thyroid function tests are within normal limits. No changes to his medications was necessary. 01/17/2024 Essential hypertension (ICD-10 - I10) His blood pressure remains well controlled and no change in his regimen was needed. 05/24/2023 Vitamin D deficiency , unspecified (ICD-10 - E55.9) He will continue on vitamin D. 06/15/2023 Hypothyroidism (ICD-10 - E03.9) His thyroid function tests will be checked periodically along with a comprehensive database. 07/27/2023 Vitamin D deficiency , unspecified (ICD-10 - E55.9) He will continue on vitamin D. 11/22/2023 History of depressio n (ICD-10 - Z86.59) He hasBeen feeling much better while taking the bupropion. The dose was increased and he will continue on it. His depression is beginning to resolve. A follow-up visit was arranged. 01/17/2024 History of depressio n (ICD-10 - Z86.59) He hasBeen feeling much better while taking the bupropion. The dose was increased and he will continue on it. His depression is beginning to resolve. A follow-up visit was arranged. 05/24/2023 History of depressio n (ICD-10 - Z86.59) History of depression and is recurring. I have increased his bupropion he'll be seen frequently. He was instructed to call the mental health portion of his health insurance to secure a mental health counselor and to attend sessions regularly. He does not appear to be suicidal at this time. He denies any thoughts of self-harm. 06/15/2023 Vitamin D deficiency , unspecified (ICD-10 - [...] was necessary.Thyroid function tests have been ordered 01/17/2024 Vitamin D deficiency , unspecified (ICD-10 - E55.9) He will continue on vitamin D. 06/15/2023 BPH (benign prostati c hypertrophy) (ICD-10 - N40.0) He arises from sleep once or twice a night to urinate. No change in his regimen is needed. We discussed lifestyle modification as a way to to reduceNocturia. 01/17/2024 BPH (benign prostati c hypertrophy) (ICD-10 - N40.0) He arises from sleep once or twice a night to urinate. No change in his regimen is needed. We discussed lifestyle modification as a way to to reduceNocturia. 01/17/2024 Balanitis (ICD-10 - N48.1) This has completely resolved Plan Of Treatment Pending Test Test Name Order Date PROFILE, FASTING (COMPREHENSIVE METABOLI C) 01/17/2024 PROFILE, FASTING (COMPREHENSIVE METABOLI C) 01/11/2023 PROFILE, FASTING (COMPREHENSIVE METABOLI C) 07/27/2023 PROFILE, FASTING (COMPREHENSIVE METABOLI C) 12/12/2019 PROFILE, FASTING (COMPREHENSIVE METABOLI C) 08/18/2022 PROFILE, FASTING (COMPREHENSIVE METABOLI C) 08/15/2020 PROFILE, RANDOM (COMPREHENSIVE METABOLIC ) 05/24/2023 MAGNESIUM 12/12/2019 LIPID PANEL 01/17/2020 LIPID PANEL 08/18/2022 LIPID PANEL 12/12/2019 T4 (THYROXINE) 11/15/2022 FREE T4 (FT4) 01/17/2020 FREE T4 (FT4) 05/24/2023 FREE T4 (FT4) 08/15/2020 TSH (THYROID STIMULATING HORMONE) 2023 TSH (THYROID STIMULATING HORMONE) 2022 TSH (THYROID STIMULATING HORMONE) 2023 TSH (THYROID STIMULATING HORMONE) 2022 TSH (THYROID STIMULATING HORMONE) 2019 TSH (THYROID STIMULATING HORMONE) 2023 TSH (THYROID STIMULATING HORMONE) 2020 IRON + IBC (FE) 11/15/2022 FERRITIN 11/15/2022 PSA, TOTAL 01/11/2023 PSA, TOTAL 01/17/2020 PSA, TOTAL 08/18/2022 PSA, TOTAL 12/12/2019 PSA, TOTAL+FREE 01/17/2020 CBC w DIFF 12/12/2019 CBC w DIFF 08/15/2020 CBC w DIFF 11/15/2022 CBC w DIFF 08/18/2022 TESTOSTERONE, TOTAL 12/12/2019 TESTOSTERONE, TOTAL 01/17/2020 US CAROTID BILATERAL DOPPLER 12/12/2019 VITAMIN D 25-OH TOTAL 11/15/2022 CBC WITH AUTO DIFF 01/17/2024 CBC WITH AUTO DIFF 07/27/2023 CBC WITH AUTO DIFF 01/11/2023 CBC WITH AUTO DIFF 05/24/2023 Complete Blood Count Auto Diff Comprehensive [place]. Panel Fast Lipid Panel 01/17/2024 Lipid Panel 05/17/2024 Lipid Panel 07/27/2023 Lipid Panel 01/11/2023 Vitamin D 25-OH Total 01/11/2023 Free T4 (Free Thyroxine) 01/11/2023 Free T4 (Free Thyroxine) 01/17/2024 Free T4 (Free Thyroxine) 05/17/2024 Free T4 (Free Thyroxine) 07/27/2023 Thyroid Stimulating Hormone 05/17/2024 Next Appt Details Provider Name:Maury Carey, 05/21/2024 10:30:00 AM, [address] [place] [address] [address], [facility], [address], Provider Name:Maury Carey, 01/21/2025 03:00:00 PM, [address] [place] [address] [address], [place], [phone], Insurance Providers Payer Name Payer Address Payer Phone Subscriber Number Group Number Insured Name Patient Relationship to Insured Coverage Start Date Coverage End Date [employer] [address] [place], [place] [id number] [phone] [id number] Quique Rincon Self - patient is the insured MEDICARE NGS [address] [place] [address] [id number] Quique Rincon Self - patient is the insured Medical (General) History Medical History History ICD Code HTN (hypertension) I10 depression maternal history of breast cancer cold weather dermatitis Surgical History Surgery Date(Month/Year) Tonsilectomy
== END 2024-05-17 10:34 | disposition home or self-care (01) ==
LOC: HO.LAB 10:33
PROVIDERS: PCP Internal Medicine Medical Oncology; Visit Provider Internal Medicine Medical Oncology
DX: E03.9 Hypothyroidism, unspecified (principal); E66.3 Overweight
CPT/HCPCS: 36415; 80053; 80061; 84439; 84443; 85025

== ENCOUNTER 2024-09-17 11:29 | Outpatient (REF) | payer MEDICARE, SELFPAY ==
--- OUTSIDE RECORDS SUMMARY | 2023-11-25 04:15 | XMS_ITS ---
Author Organization Maury Carey III, MD Address [address] [place] [address] Care Team Providers Care Asp Net Programmer Name Role Phone Maury Carey Primary Care Provider REASON FOR VISIT Follow Up Social History Sex Assigned At : Social History Observation Description Sex Assigned At Male Encounters Encounter Location Date Provider Diagnosis Maury Carey III, MD [address] [place] [address] [place] [address] 11/25/2023 Maury Carey Plan Of Treatment Next Appt Details Provider Name:Maury Carey, 09/20/2024 10:15:00 AM, [address] [place] [address] [place], [address], Provider Name:Maury Carey, 01/21/2025 03:00:00 PM, [address] [place] [address] [place], [address], Progress Notes * Javier VUOB:1955 (68 yo M)Acc No.[id number]:11/25/2023 Progress Notes Patient: Quique RUBIO Provider: Christiano Carey MD :1955 A ge:68 Y S ex:Male Date:11/25/2023 [address] [place] [place] Subjective: * Chief Complaints: * 1 . Follow Up. * Medical History: Objective: * Vitals: Assessment: Plan: * Treatment: * Images: * The named appointment provid er may or may not be the originator of this progress note, and it is not deemed complete until electronically signed by the appointment provider. Sign off status: Pending * Provider: Christiano Carey MD Date: 11/25/2023 Generated for Olga Lidia rogers/Helen/Yohana on: 09/17/2024 12:39 PM EDT
[2024-09-17 11:40] LABS: MANUAL DIFF FLAG NO
[2024-09-17 12:34] LABS: Hematocrit 42.8 % (42.0-52.0); Hemoglobin 14.1 g/dl (14.0-18.0); Imm Gran Abs Auto 0.02 X10*3/uL (0.00-0.03); Imm Gran Pct Auto 0.4 % (0.0-0.4); Lymphocytes Absolute Auto 1.5 X10*3/uL (1.2-4.9); Mean Corpuscular HGB Conc 32.9 g/dl (31.0-36.0); Mean Corpuscular Hemoglobin 30.2 pg (27.0-33.0); Mean Corpuscular Volume 91.6 fL (80.0-98.0); NRBC Abs Auto 0.000 X10*3/uL (0.0-0.012); NRBC Pct Auto 0.0 /100WBC (0.0-0.2); Platelet Count 217 X10*3/uL (160-400); Red Blood Count 4.67 X10*6/uL (4.60-5.80); White Blood Count 5.6 X10*3/uL (4.8-10.8)
--- OUTSIDE RECORDS SUMMARY | 2024-09-17 12:39 | XMS_ITS | Clinical Summary ---
Author Organization [facility] Address [address] [place] [address] Care Team Providers Care Washing And Screening Plant Supervisor Name Role Phone Unavailable Primary Care Provider [...] 2004 Zoster Vaccines (1 of 2) 2004 COVID-19 Vaccine (1 - 2023-2 5 season) 2023 Influenza Vaccine (#1) 2024 RSV Immunization Adult Patie nts (1 - 1-dose 75+ series) 2029 HIB [...] age to complete this topic Meningococcal B Vaccine Aged Out No l onger eligible based on patient's age to complete this topic RSV Immunization Patients Un santi 20 months Aged Out No longer eligible b ased on patient's age to complete this topic Varicella Vaccines Aged Out No longer eligible based on patient's age to complete this topic
--- OUTSIDE RECORDS SUMMARY | 2024-09-17 12:39 | XMS_ITS | Data Portability ---
Author Organization JERARDO Magallon [facility], [employer] Address [address] [place] [phone] Assessment Encounter Date Assessment Date Assessment LastModified by Organization Details LastModified Time 08/16/2024 08/16/2024 1. Inflamed Seborrheic Keratosis RV for LN2 as patient is leaving for [place] tomorrow. 2. Seborrheic Keratoses - benign. Observation. Return if change 3. Solar Lentigo - Observation. Return if change. Sun protection stressed 4. Nevi- Observation. Return if change Warning signs of malignancy melanoma stressed Skin Cancer talk given - warning signs of malignancy, ACDEs Sun protection talk given - SPF 30 or higher must be applied and reapplied every 2-3 hours. Protective clothing such as hats, sunglasses and UPF clothing recommended. Avoidance of the strongest sun hours from 10am-4pm. Warning signs of melanoma discussed. Monthly self exams stressed. Return 1 year for repeat CSE [email or web address] Not available 08/16/2024 11:57:44 Plan of Treatment Reminders Order Date Submit Date Provider Last Modified By Organization Details Last Modified Time Details Appointments Dermatolo gy CSE 15 2024 12:45P M OMAYRA TUBBS Not available Not available Not available Lab None recorded. Referral None recorded. Procedures None recorded. Surgeries None recorded. Imaging None recorded. Medication Orders None recorded. Patient TargetsNo targets recorded. Patient InstructionsNo instructions recorded. Reason for Referral None Reported. Problems Name Problem SNOMED Code Status Onset Date Resolution Date Notes Provider Name and Address Organization Details Recorded Time Mild depression 368951814 Active 2024 JERARDO [facility] 5 11:02:19 Primary hypothyroidism 35527145 Active 2024 JERARDO [facility] 11:02:34 Problem Notes None recorded. Medical Equipment None Reported. Allergies No known drug allergies Medications Name Sig Start Date Stop Date Status Note LastModified by Organization Details LastModified Time bupropion HCl SR 100 mg tablet,12 hr sustained-re lease TAKE 1 TABLET BY MOUTH EVERY DAY IN THE MORNING FOR 30 DAYS active Not Available Not Available No t Available levothyroxin e 50 mcg tablet TAKE 1 TABLET BY MOUTH EVERY DAY active Not Available Not Available No t Available clotrimazole -betamethaso ne 1 %-0.05 % topical cream APPLY TOPICALLY 2 TIMES A DAY FOR 21 DAYS. active Not Available Not Available No t Available ketoconazole 2 % topical cream APPLY 1 APPLICATION EXTERNALLY TWICE A DAY FOR 10 DAYS active Not Available Not Available Not Available Vitals None Recorded Social History None recorded. Functional Status None recorded. Mental Status None recorded. Family History Nothing Reported. Medical History No medical history recorded. Past Encounters Encounter ID Performer Location Encounter Start Date Encounter Closed Date Diagnosis/Indication Diagnosis SNOMED-CT Code Diagnosis ICD10 Code Diagnosis Note [id number] OMAYRA TUBBS Main Office [address] [place], [place] [address] [place] [address] 08/16/2024 10:58:28 08/16/2024 11:19:53 Inflamed seborrheic keratosis 028549833 L82.0 Seborrheic keratosis 394 217672 L82.1 Solar lentigo 88311234 L 81.4 Melanocyti c nevus of trunk 696975627 D22.5 Health Concerns Section Related Observation LastModified by Organization Detai ls LastModified Time None Recorded Concern Status LastModified by Organization Details LastModified Time None Recorded Advance Directives Directive None Recorded Payers Insurance Date Sequence Insurance Name Policy Number Policy Meyers Covered Member ID Meyers Member ID Guarantor Name 09/14/2024 1 [place]MEDICARE [place]PLACEMENT PPO) [id number] Quique Vu [id number] Quique Vu 08/16/2024 2 [place] [employer] SERVICES Quique Vu [id number] Quique Vu Notes Date Note Type Note Provider Name and Address Organization Details Recorded Time 08/16/2024 text/html New patient presents today for a full skin exam today. Patient denies family history of NMSC or MM. Patient denies personal history of NMSC or MM. Patient has a lesion on his neck that is rough and raised, some lesions on his back that he would like checked out. - Concerned about seborrheic keratosis, described as rough, stuck-on spots on the skin.- Lived in [place] for 22 years, aware of sun exposure but informed that seborrheic keratosis is genetic.- No recent full skin exam; primary care physician has checked skin in the past.- Uses two skin creams for spots similar to athlete's foot, which have been present for the last year.- Reports having skin tags, which are not a concern. OMAYRA TUBBS [address] [facility] [facility] [address], [place], [address], [facility] - [facility] 08/16/2024 12:00:13
[2024-09-17 13:10] LABS: Alanine Aminotransferase 32 U/L (0-40); Albumin Level 4.4 g/dL (3.5-5.0); Alkaline Phosphatase 59 U/L (39-117); Anion Gap 11 (12-20); Aspartate Amino Transferase 27 U/L (5-37); Blood Urea Nitrogen 19 mg/dL (9-16); Calcium 9.6 mg/dL (8.4-10.2); Carbon Dioxide 27 mmol/L (22-29); Chloride 108 mmol/L (96-108); Cholesterol 209 mg/dL (<200); Estimated Glomerular Filt Rate 52; HDL Cholesterol 48 mg/dL (>40); Potassium 4.3 mmol/L (3.3-5.1); Sodium 142 mmol/L (135-145); Total Protein 7.1 g/dL (6.5-8.0); Triglycerides 101 mg/dL (<150)
[2024-09-17 13:17] LABS: Free T4 (Free Thyroxine) 1.12 ng/dL (0.71-1.85); Thyroid Stimulating Hormone 2.09 uIU/mL (0.32-4.0)
[2024-09-17 13:20] LABS: Prostate Specific Antigen 3.08 ng/mL (<0.05-4.0)
== END 2024-09-17 11:30 | disposition home or self-care (01) ==
LOC: HO.LAB 11:29
PROVIDERS: PCP Internal Medicine Medical Oncology; Visit Provider Internal Medicine Medical Oncology
DX: I10 Essential (primary) hypertension (principal); N40.0 Benign prostatic hyperplasia without lower urinary tract symptoms; E03.9 Hypothyroidism, unspecified; E55.9 Vitamin D deficiency, unspecified; E66.3 Overweight
CPT/HCPCS: 36415; 80053; 80061; 84153; 84439; 84443; 85025

== ENCOUNTER 2025-01-15 11:14 | Outpatient (REF) | payer MEDICARE, SELFPAY ==
--- OUTSIDE RECORDS SUMMARY | 2012-07-26 09:45 | XMS_ITS | Continuity of Care Document ---
Author Organization [id number] Address [address] [place] [address] Phone Care Team Providers Care General Manager Road Production Name Role Phone Gildardo Wilkinson MD Unavailable Unavailable Allergies, Adverse Reactions, Alerts Substance Reaction Status Criticality No Known allergies Medications Medication Instructions Dosage Effective Dates (start - stop) Status Comments nortriptyline 25 mg capsule take 1 capsule by oral route 3 times every day 25 MG - Active metoprolol succinate ER 25 mg tablet,extended release 24 hr take 1 tablet by oral route every day 25 MG - Active naproxen 250 mg tablet take 1 tablet by oral route 2 times every day with food 250 MG - Active bupropion HCl SR 150 mg tablet,sustained-rele ase take 1 tablet by oral route 2 times every day 150 MG - Active clindamycin 150 mg capsule take 1 capsule by oral route every 8 hours 150 MG - No Longer Active Procedures Procedure Date Office/outpatient visit est Office/outpatient visit new 1 Rx via qualified eRx sys SPECIAL SUPPLIES Advance Directives Directive Yes / No Effective Date File Name No Information Encounters Encounter Description Practice Location Reason(s) For Visit Diagnoses Date Provider Providers Copied on Encounter Office/outpat ient visit est [id number] [facility], [address], [place], [address], [place] tel:[phone] [facility] Patient state here for sore throat follow up (chief complaint) No Information 3 Jaja Ewing. [address] [place] [address], [address], [place], [address], [place]. tel:[phone] Referring Provider: Gildardo Wilkinson, [address] [facility] [address], [place], [place], [facility]. tel:[phone] Office/outpat ient visit new [address] [facility], [address], [place], [place], [facility], tel:[phone] [facility] 105 sharp pain on lt side of throat (chief complaint) Deviated nasal septum 3 Jaja Gildardo. [address] [facility] [address], [address], [place], [place], [facility], . tel:[phone] Referring Provider: Gildardo Wilkinson, [address] [facility] [address], [place], [facility]. tel:[phone] [facility], [address], [place], [place], [facility], tel:[phone] [facility] 105 No Information 3 Ocpanfilo Ewing. [address] [facility] [address], [address], [place], [facility], . tel:[phone] Referring Provider: Gildardo Wilkinson, [address] [facility] [address], [place], [facility]. tel:[phone] Family History Family Member Type Diagnosis Age At Onset Problem (finding) Family history of glauc ayaka Problem (finding) Family history of Diabe kaur mellitus Problem (finding) Family history of strok e Problem (finding) Family history of hyper tension Payers Payer name Insurance type Covered alliance party ID Authorraymonda tioly(s) Self Pay - [facility] CI [id number] Social History Type Description Quantity Date Captured Comments Alcohol Use Details No Caffeine Use Details No Tobacco Use Status No Information Smoking Status Never smoker Sex Male Chief Complaint And Reason For Visit From encounter dated '07/26/2012 14:45'. Patient state here for sore throat follow up (chief complaint) Reason For Referral Reason For Referral No Information History Of Present Illness Encounter Date Complaint History Of Prese nt Illness No Information Functional Status Date Functional Assessmen t No Information Instructions Date Instruction Additional Infor mation No Information Assessments Type Assessment Date No Information Patient Care Teams Name Effective Dates (start - stop) Status Members No Information
--- OUTSIDE RECORDS SUMMARY | 2014-08-22 06:30 | XMS_ITS | Continuity of Care Document ---
Author Organization [id number] - [facility] Address [address] [place] [address] Phone Care Team Providers Care Model Dresser Name Role Phone Jennifer Doan MD Unavailable Unavailable Allergies, Adverse Reactions, Alerts Substance Reaction Status Criticality No Known Allergies Active No Inform ation Procedures Procedure Date VOID Advance Directives Directive Yes / No Effective Date File Name No Information Encounters Encounter Description Practice Location Reason(s) For Visit Diagnoses Date Provider Providers Copied on Encounter [id number] - [facility], [address], [place], [address], [place] tel:[phone] CAD (chief complaint)H ypertension Follow Up (chief complaint) No Information Franki Rodriguez. [address] [place] [address], [id number], . tel:[phone] Referring Provider: Jennifer Doan, [address] [place] [address], [address]. tel:[phone] Family History Family Member Type Diagnosis Age At Onset No Information Payers Payer name Insurance type Covered constitution party ID Authoriza tion(s) No Information Social History Type Description Quantity Date Captured Comments Alcohol Use Details Unknown Caffeine Use Details Unknown Tobacco Use Status Never smoked tobacco 2014 Smoking Status Never smoker Non-Smoking Tobacco Use Details : No Details Available : No Details Available Sex Male Chief Complaint And Reason For Visit From encounter dated '08/22/2014 11:30'. CAD (chief complaint) Hypertension Follow Up (chief complaint) Reason For Referral Reason For Referral No Information Plan Of Treatment Date Type Action Status Patient Education Learning About High Blo od Pressure completed History Of Present Illness Encounter Date Complaint History Of Prese nt Illness Hypertension Follow Up CAD Functional Status Date Functional Assessmen t No Information Instructions Date Instruction Additional Infor mation No Information Assessments Type Assessment Date No Information Patient Care Teams Name Effective Dates (start - stop) Status Members No Information
--- OUTSIDE RECORDS SUMMARY | 2014-10-04 10:15 | XMS_ITS | Continuity of Care Document ---
Author Organization [facility] Address [address] [place] [address] Phone Care Team Providers Care What Job Titles Mean Name Role Phone Quique Epstein MD Unavailable Unavailable Allergies, Adverse Reactions, Alerts Substance Reaction Status Criticality No Known Allergies Active No Inform ation Medications Medication Instructions Dosage Effective Dates (start - stop) Status Comments prednisone 5 mg tablets in a dose pack Take as directed for 6 days - Active bupropion HCl SR 150 mg tablet,sustained-releas e take 1 tablet by oral route 2 times every day 150 MG - Active nortriptyline 10 mg capsule take 2 capsule by oral route 4 times every day 20 MG - Active metoprolol succinate ER 25 mg tablet,extended release 24 hr take 1 tablet by oral route every day 25 MG - Active Procedures Procedure Date Office/outpatient visit,est, mod 2014 Prepayment Surgery Inject foramin, lumb/sacral, single Inject foramin, lumb/sacral, ea add Office/outpatient visit,est, high Office/outpatient visit,new, mod 2014 Decadron 4mg Injection, Intramuscular Or Subcutaneous Decadron 4mg Advance Directives Directive Yes / No Effective Date File Name No Information Encounters Encounter Description Practice Location Reason(s) For Visit Diagnoses Date Provider Providers Copied on Encounter [facility], [address], [place], [place], [id number], [place] tel:[phone] [facility] No Information 5 Tete Lei. [address], [place], [place], [id number] , [place]. tel:[phone] Referring Provider: Rogelio Olea, [address], [place], [address] . tel:[phone] [facility]pa [facility] visit,[facility], [facility], [address], [place], [place], [id number], [place] tel:[phone] [facility] lumbar spine (chief complaint) HNP (herniated nucleus pulposus), lumbarLumbosacr al radiculopathy at L5Foot drop, left July- 5 Tete Lei. [address], [address], [place], [place], [id number] , [place]. tel:[phone] Referring Provider: Rogelio Olea, [address], [place], [address] . tel:[phone] [facility], [address], [place], [place], [id number], [place] tel:[phone] [facility] No Information 5 Tete Lei. [address], [address], [place], [place], [id number] , [place]. tel:[phone] Referring Provider: Quique Epstein MD, [address], [place], [address] . tel:[phone] [facility]pa [facility]ient visit,[facility], [facility], [address], [place], [place], [id number], [place] tel:[phone] [address] lumbar spine (chief complaint) Foot drop, leftHNP (herniated nucleus pulposus), lumbarLumbosacr al radiculopathy at L5 May-2 5 Tete Lei. [address], [place], [place], [id number] , . tel:[phone] Referring Provider: Rogelio Olea, [address], [place], [address] . tel:[phone] Office/outpa tient visit,new, [facility], [address], [place], [place], [id number], tel:[phone] [facility] 400 lumbar spine (chief complaint) HNP (herniated nucleus pulposus), lumbarLumbosacr al radiculopathy at L5Foot drop, left May- 0 5 Doris Mercado. [address], [place], [place], [id number] , . [phone] Referring Provider: Rogelio Olea, [address] [facility] [address], [place], [address] . tel:[phone] [facility], [address], [place], [place], [id number], tel:[phone] [address] No Information 5 Doris Mercado. [address], [address], [place], [place], [id number] , . tel:[phone] Family History Family Member Type Diagnosis Age At Onset Problem (finding) Family history of congestive heart failure Payers Payer name Insurance type Covered democrat ID Authoriza tion(s) No Information Social History Type Description Quantity Date Captured Comments Alcohol Use Details No Caffeine Use Details coffee 1 cup per day Tobacco Use Status No Information Smoking Status Never smoker Sex Male Vital Signs Date / Time: Height Weight BMI Pulse Rate Blood Pressure Temperature Respiratory Rate Body Surface Area Head Circumference Head Circ. Percentile Wt./Scotty. Percentile BMI percentile Pulse Ox Inhaled Ox 3:07 PM 177.80 cm 68.039 kg (150.00 lbs) 21.5 2 kg/m eter (2) 1.83 meter(2) Chief Complaint And Reason For Visit No Information Reason For Referral Reason For Referral No Information History Of Present Illness Encounter Date Complaint History Of Prese nt Illness lumbar spine Mr Vu is a 58 year old male who is here for a follow up of lumbar spine. Patient is s/p LESI on 06/05/14 with 80% pain relief He presents with pain and numbness. The symptoms occur occasionally. The problem is fluctuating. Currently the patient states that the symptoms are mild. The symptoms occur with activity. The patient indicates that the pain is located in the lower back. The pain radiates lower back on the left side then to the lower extremities on the left side. Quique states that the symptoms are relieved by exercise. Patient has not had previous therapy. lumbar spine Mr Vu is a 58 year old male who complains of lumbar spine. He presents with pain and numbness. He states that the symptoms have been acute non-traumatic and began 2 weeks ago. The symptoms occur intermittently. The problem is stable. Currently the patient states that the symptoms are moderate. The symptoms occur with activity. The patient indicates that the pain is located in the lower back, left flank. The pain radiates lower back on the left side then to the lower extremities on the left side. The symptoms are aggravated by no specific activity. lumbar spine (comments) He feels weakness in dorsiflexion of his left foot. Symptoms are resolving. Review of MRI lumbar spine reveals a probable extruded disc fragment at the L5 vertebral body and left foramen consistent with his L5 radiculopathy. Also noted is probable cystic formation in the sacral region. lumbar spine Mr Vu is a 58 year old male who complains of lumbar spine. He presents with numbness. Patient states he was working and felt a pain followed by numbness in his LLE about 9 days ago. Patient state since then the pain has subsided but the numbness has not. Patient went to an Urgent Care where X-Rays were taken which are not available for view today. Patient states he was given muscle relaxers and pain medication which has given him some relief. An MRI was ordered which is available for view today. He states that the symptoms have been acute traumatic and began 11 days ago. The symptoms occur constantly. The problem is unchanged. Currently the patient states that the symptoms are mild-moderate. The pain is described as dull. The symptoms occur continuously. The patient reports numbness in the lateral thigh, whole foot and leg below the knee. The symptoms are aggravated by ascending stairs, bending, daily activities, descending stairs, rolling over in bed, sitting, standing and walking. Quique states that the symptoms are relieved by no specific activity. In addition to lumbar spine the patient is also experiencing decreased mobility. Pertinent negatives include limping. Functional Status Date Functional Assessmen t No Information Instructions Date Instruction Additional Infor charlie Chronic intermittent left sided low back pain with now progressive weakness and foot drop on the left with MRI demonstrating large left HNP L4-5 with cephalad migration and severe left foraminal stenosis L4-5 and smaller left HNP L3-4 (and most caudal rudimentary disc being labeled L5-S1). MRI images and reports were discussed with the patient. I performed epidural 06/05/2014 with 80% relief and order PT for strengthening with marked relief. He is pleased. Decision made to observe. F/U 2 months Related to HNP (herniated nucleus pulposus), lumbar Chronic intermittent left sided low back pain with now progressive weakness and foot drop on the left with MRI demonstrating large left HNP L4-5 with cephalad migration and severe left foraminal stenosis L4-5 and smaller left HNP L3-4 (and most caudal rudimentary disc being labeled L5-S1). MRI images and reports were discussed with the patient. Extensive discussion and treatment options was performed with the patient. Epidurals were discussed along with the risks and benefits. Decision for epidural was made. I will perform this myself. I will also order PT lumbar Related to Foot drop, left Decadron. Sterapred. General precautions. Spine specialty evaluation this next week. No further treatment is is to do with improvement in symptoms noted as well as improvement in dorsiflexion of the left foot. No bracing will be instituted at this time. He is advised to call if symptoms worsen or to present to the emergency room over the weekend if acute worsening of symptoms are noted. Related to Lumbosacral radiculopathy at L5 Assessments Type Assessment Date No Information Patient Care Teams Name Effective Dates (start - stop) Status Members No Information
--- OUTSIDE RECORDS SUMMARY | 2015-05-08 07:03 | XMS_ITS | Continuity of Care Document ---
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 Name Role Phone Franki NUNO, Jennifer Unavailable Unavailable Allergies, Adverse Reactions, Alerts Substance Reaction Status Criticality No Known Allergies Active No Inform ation Medications Medication Instructions Dosage Effective Dates (start - stop) Status Comments Wellbutrin SR 150 mg tablet,sustained-rele ase take 1 tablet (150MG) by oral route 2 times every day 150 MG - Active Abilify 5 mg tablet take 0.5 Tablet (2.5MG) by oral route every day 2.5 MG - Active nortriptyline 25 mg capsule take 1 capsule (25MG) by oral route 3 times every day 25 MG - Active Bystolic 2.5 mg Tab take 1 Tablet (2.5MG) by oral route every day 2.5 MG - Active metoprolol tartrate 25 mg tablet take 1 tablet by oral route every day 25 MG - No Longer Active metoprolol tartrate 25 mg tablet take 1 tablet by oral route every day 25 MG - No Longer Active Procedures Procedure Date OFFICE/OUTPT EM EST EXP PROB FOCUS/LOW 1 5 MINS OFFICE/OUTPT EM EST EXP PROB FOCUS/LOW 1 5 MINS ECHO TRANSTHORACIC R-T 2D COMP W/DOP&COL OR FLOW MYOCARDIAL SPECT MULTIPLE STUDIES Technetium tc-99m tetrofosmin, diag per study dose CARDIOVASCULAR STRESS TEST W/ SUPERVISIO N I&R OFFICE/OUTPT EM EST EXP PROB FOCUS/LOW 1 5 MINS OFFICE/OUTPT EM EST EXP PROB FOCUS/LOW 1 5 MINS OFFICE/OUTPT EM EST EXP PROB FOCUS/LOW 1 5 MINS OFFICE/OUTPT EM EST DETAILED/MODERATE 25 MINS Office/outpatient visit est Office/outpatient visit est Office/outpatient visit est Office/outpatient visit est Office/outpatient visit est Ht muscle image spect mult Technetium Tc99m sestamibi Cardiovascular stress test Tte w/doppler complete Office/outpatient visit est OFFICE/OUTPATIENT VISIT, EST OFFICE/OUTPATIENT VISIT, EST OFFICE/OUTPATIENT VISIT, EST OFFICE/OUTPATIENT VISIT, EST Advance Directives Directive Yes / No Effective Date File Name No Information Encounters Encounter Description Practice Location Reason(s) For Visit Diagnoses Date Provider Providers Copied on Encounter [id number] - [employer], [address], [place], [place], [facility], tel: [phone] [facility]- No Information 6 Franki Rodriguez. [address] [place] [address], [id number] , . tel: [phone] OFFICE/OUTPT EM EST EXP PROB FOCUS/LOW 15 MINS [id number] - [employer], [address], [place], [facility], tel: [phone] [facility] [address] Hypertension Follow Up (chief complaint) No Information 6 Franki Rodriguez. [address] [place] [address], [id number] , . tel: [phone] Referring Provider: Jennifer Doan, [address] [place] [address], [address] . tel:[phone] [id number] - [facility] [employer], [address], [place], [facility], tel: [phone] [facility] Hypertension Follow Up (chief complaint)CAD (chief complaint) No Information 5 Franki Montoyati. [address] [place] [address], [address] [place] [address] , . tel: [phone] Referring Provider: Jennifer Doan, [address] [place] [address], [address] . tel:[phone] OFFICE/OUTPT EM EST EXP PROB FOCUS/LOW 15 MINS [id number] - [employer], [address], [place], [facility], tel: [phone] [facility] 101 No Information 5 Franki Montoyati. [address] [place] [address], [id number] , . tel: [phone] Referring Provider: Jennifer Doan, [address] [place] [address], [address] . tel:[phone] [id number] - [employer], [address], [place], [facility], tel: [phone] [facility] [place] [address] No Information 5 Franki Jennifer. [address] [place] [address], [id number] , . tel: [phone] Referring Provider: Jennifer Doan, [address] [place] [address], [id number] . tel:[phone] [id number] - [facility] [employer], [address], [place], [facility], tel: [phone] [facility] [place] [address] e No Information 5 Franki Rodriguez. [address] [place] [address], [id number] , . tel: [phone] Referring Provider: Jennifer Doan, [address] [place] [address], [address] . tel:[phone] OFFICE/OUTPT EM EST EXP PROB FOCUS/LOW 15 MINS [id number] - [facility] [employer], [address], [place], [facility], tel: [phone] [facility] [address] No Information 5 Franki Rodriguez. [address] [place] [address], [id number] , . tel: [phone] Referring Provider: Jennifer Doan, [address] [place] [address], [address] . tel:[phone] OFFICE/OUTPT EM EST EXP PROB FOCUS/LOW 15 MINS [id number] - [facility], [address], [place], [facility], [place] tel: [phone] [facility]- No Information 4 Franki Rodriguez. [address] [place] [address], [id number] , . tel: [phone] Referring Provider: Jennifer Doan, [address] [place] [address], [address] . tel:[phone] OFFICE/OUTPT EM EST EXP PROB FOCUS/LOW 15 MINS [id number] - [employer], [address], [place], [facility], tel: [phone] [facility] No Information 4 Franki Rodriguez. [address] [place] [address], [id number] , . tel: [phone] Referring Provider: Jennifer Doan, [address] [place] [address], [address] [place] [address] . tel:[phone] OFFICE/OUTPT EM EST DETAILED/MOD ERATE 25 MINS [id number] - [employer], [address], [place], [facility], tel: [phone] [facility] [place] [address] No Information 3 Franki Jennifer. [address] [place] [address], [id number] , . tel: [phone] Referring Provider: Jennifer Doan, [address] [place] [address], [address] . tel:[phone] Office/outpa tient visit est [id number] - [employer], [address], [place], [facility], tel: [phone] [facility]- htn follow up (chief complaint) GERDFatigue / MalaiseHypertensio n, Benign Aug- 3 Franki Jennifer. [address] [place] [address], [id number] , . tel: [phone] Referring Provider: Jennifer Daon, [address] [place] [address], [address] . tel:[phone] [id number] - [employer], [address], [place], [facility], tel: [phone] [facility] [place] [address] 201 No Information Feb- 2 Franki Jennifer. [address] [place] [address], [id number] , . tel: [phone] Office/outpa tient visit est [id number] - [employer], [address], [place], [facility], tel: [phone] [facility] [facility] HTN FOLLOW UP (chief complaint) Hypertension, BenignGERDFatigue / Malaise 2 Franki Rodriguez. [address] [place] [address], [id number] , . tel: [phone] Referring Provider: Jennifer Doan, [address] [place] [address], [address] . tel:[phone] Office/outpa tient visit est [id number] - [employer], [address], [place], [facility], tel: [phone] [facility]- No Information 2 Franki Montoyati. [address] [place] [address], [id number] , . tel: [phone] Referring Provider: Jennifer Doan, [address] [place] [address], [address] [place] [address] . tel:[phone] Office/outpa tient visit est [id number] - [employer], [address], [place], [facility], tel: [phone] [facility]- No Information 1 Franki Montoyati. [address] [place] [address], [id number] , . tel: [phone] Referring Provider: Jennifer Doan, [address] [place] [address], [address] . tel:[phone] [id number] - [employer], [address], [place], [facility], tel: [phone] [facility]- No Information 1 Franki Montoyati. [address] [place] [address], [id number] , . tel: [phone] Referring Provider: Jennifer Doan, [address] [place] [address], [address] . tel:[phone] Office/outpa tient visit est [id number] - [facility], [address], [place], [facility], tel: [phone] [facility]- No Information 1 Franki Rodriguez. [address] [place] [address], [address] [place] [address] , . tel: [phone] Referring Provider: Jennifer Doan, [address] [place] [address], [address] . tel:[phone] [id number] - [facility] [employer], [address], [place], [facility], tel: [phone] [facility] [place] [address]- No Information 1 Franki Jennifer. [address] [place] [address], [id number] , . tel: [phone] Referring Provider: Jennifer Doan, [address] [place] [address], [address] . tel:[phone] Office/outpa tient visit est [id number] - [employer], [address], [place], [facility], tel: [phone] [facility]- No Information 1 Franki Jennifer. [address] [place] [address], [id number] , . tel: [phone] Referring Provider: Jennifer Doan, [address] [place] [address], [address] . tel:[phone] OFFICE/OUTPA TIENT VISIT, EST [id number] - [facility] [employer], [address], [place], [facility], tel: [phone] [facility]- No Information 0 Franki Jennifer. [address] [place] [address], [id number] , . tel: [phone] Referring Provider: Jennifer Doan, [address] [place] [address], [address] [place] [address] . tel:[phone] OFFICE/OUTPA TIENT VISIT, EST [id number] - [facility] [employer], [address], [place], [facility], tel: [phone] [facility]- No Information 9201 0 Franki Montoyati. [address] [place] [address], [id number] , . tel: [phone] Referring Provider: Jennifer Doan, [address] [place] [address], [address] . tel:[phone] OFFICE/OUTPA TIENT VISIT, [id number] - [employer], [address], [place], [facility], tel: [phone] [facility]- No Information 0 Franki Jennifer. [address] [place] [address], [address] [place] [address] , . tel: [phone] Referring Provider: Jennifer Doan, [address] [place] [address], [address] . tel:[phone] OFFICE/OUTPA TIENT VISIT, [facility]652 - [employer], [address], [place], [facility], tel: [phone] [facility]- No Information 8 Franki Montoyati. [address] [place] [address], [address] [place] [address] , . tel: [phone] Referring Provider: Jennifer Doan, [address] [place] [address], [address] . tel:[phone] Family History Family Member Type Diagnosis Age At Onset Father Problem (finding) stroke Payers Payer name Insurance type Covered constitution party ID Authordesmond lopez(s) [place] [id number] Social History Type Description Quantity Date Captured Comments Sex Male Smoking Status No Information Chief Complaint And Reason For Visit No Information Reason For Referral Reason For Referral No Information Plan Of Treatment Date Type Action Status Patient Education Learning About High Blo od Pressure completed Patient Education Learning About High Blo od Pressure completed History Of Present Illness Encounter Date Complaint History Of Prese nt Illness Hypertension Follow Up CAD Hypertension Follow Up Functional Status Date Functional Assessmen t No Information Instructions Date Instruction Additional Infor mation No Information Assessments Type Assessment Date No Information Patient Care Teams Name Effective Dates (start - stop) Status Members No Information
--- OUTSIDE RECORDS SUMMARY | 2023-07-27 09:15 | XMS_ITS ---
Author Organization Maury Carey III, MD Address [address] [place] [address] Care Team Providers Care Belt Builder Name Role Phone Dr. Maury Carey III Primary Care Provider [phone] Allergies Allergen (clinical drug ingredient) Drug/Non Drug Allergy documented on EMR Reaction Allergy Type Onset Date Status No Known Drug Allergy Unknown Drug Allergy Active Seasonale Unknown Drug Allergy Active REASON FOR VISIT Hypertension, Depression, Hypothyroid, Benign prostatic hypertrophy Medications Medication SIG (Take, Route, Frequency, Duration) Notes Start Date End Date Status Triamcinolone Acetonide 0.025 % 1 application Externally Once a day for 30 days 07/27/2023 Active buPROPion HCl ER (SR) 100 MG 1 tablet in the morning Orally Once a day 05/24/2023 Active Vitamin C 1000 MG 1 tablet Orally Once a day Active Zinc 100 MG 1 tablet Orally Once a day Active Levothyroxine Sodium 50 MCG TAKE 1 TABLE T BY MOUTH EVERY DAY IN THE MORNING ON EMPTY STOMACH FOR 30 DAYS Active Social History Tobacco Use: Social History Observation Description Date Details (start date - stop date) Never Smoker NA - NA Sex Assigned At : Social History Observation Description Sex Assigned At Male Tobacco Use/Smoking Question Answer Notes Patient is a nonsmoker Additional Findings: Tobacco Non-User Aggressive non-smoker Vital Signs Temperature 97.5 degrees Fahrenheit 07/27/19 24 Blood pressure systolic 122 mm Hg 07/27/19 24 Blood pressure diastolic 71 mm Hg 024 Heart Rate 83 /min 07/27/2023 Height 70 in 07/27/2023 Weight 169 lbs 07/27/2023 BMI 24.25 kg/m2 07/27/2023 Encounters Encounter Location Date Provider Diagnosis Maury Carey III, MD [address] [place] [address] 07/27/2023 Maury Carey Essential hypertensi on I10 ; Hypothyroidism E03.9 ; Vitamin D deficiency, unspecified E55.9 and History of depression Z86.59 Assessments Encounter Date Diagnosis (ICD Code) Assessment Notes Treat ment Notes Treatment Clinical Notes 07/27/2023 Essential hypertension (ICD-10 - I10) His blood pressure remains well controlled at 122/71 and no change in his regimen was needed. 07/27/2023 Hypothyroidism (ICD-10 - E03.9) He has been compliant with his therapy and no change in his medications was necessary. 07/27/2023 Vitamin D deficiency , unspecified (ICD-10 - E55.9) He will continue on vitamin D. 07/27/2023 History of depressio n (ICD-10 - Z86.59) He hasBeen feeling much better while taking the bupropion. The dose was increased and he will continue on it. His depression is beginning to resolve. A follow-up visit was arranged. Plan Of Treatment Medication Medication Name Sig Start Date Stop Date Notes Triamcinolone Acetonide 0.02 5 % 1 application Externally Once a day for 30 days 07/27/2023 buPROPion HCl ER (SR) 100 MG 1 tablet in the morning Orally Once a day 05/24/2023 Vitamin C 1000 MG 1 tablet Orally Once a day Zinc 100 MG 1 tablet Orally Once a day Levothyroxine Sodium 50 MCG TAKE 1 TABLE T BY MOUTH EVERY DAY IN THE MORNING ON EMPTY STOMACH FOR 30 DAYS Pending Test Test Name Order Date PROFILE, FASTING (COMPREHENSIVE METABOLI C) 07/27/2023 TSH (THYROID STIMULATING HORMONE) 2023 CBC WITH AUTO DIFF 07/27/2023 Lipid Panel 07/27/2023 Free T4 (Free Thyroxine) 07/27/2023 Next Appt Details Follow Up: 4 Months, Reason: OV Provider Name:Maury Carey , 01/21/2025 03:00:00 PM, [address] [place] [address] [address], [place], [address], Progress Notes * Yohan VU:1955 (67 yo M)Acc No.[id number]:07/27/2023 Progress Notes Patient: Quique Hutton Provider: Christiano Carey MD :1955 A ge:67 Y S ex:Male Date:07/27/2023 Address:[place], [id number] Subjective: * Chief Complaints: * H ypertensionDepressionHypothyroidBenign prostatic hypertrophy * HPI: C OVID-19 Screening: He returns for a scheduled visit to evaluate and manage his medical issues. Since his last visit he has average nocturia once a night. We have discussed lifestyle modification as a way to reduce nocturia. He has been compliant with all of his medications. His depression is mild and he is coping well. He is able to conduct all of the activities of daily living. He continues on vitamin D supplementation. His blood pressure is well controlled. Questions H ave you experienced fever, chills, cough, sore throat, shortness of breath, difficulty breathing, muscle aches, loss of taste or smell? N o H ave you been exposed to the virus within the last 10 days? N o H ave you travelled internationally in the last 10 days? N o H ave you been exposed to COVID-19 in the past? N o * ROS: G eneral/Constitutional: pain o nly normal aches and pains. C hills d enies.?Fatigue a dmits. F ever d enies. E NT: Decreased hearing d enies. R espiratory: Cough d enies. C ardiovascular: Chest pain with exertion d enies. D yspnea on exertion?denies. S hortness of breath d enies. G astrointestinal: Constipation o ccasional. D ecreased appetite d enies. D iarrhea d enies. H eartburn d enies. N ausea d enies. R ectal bleeding d enies. V omiting d enies. H ematology: bruising d enies. p etechiae d enies. S wollen glands n one have been noted. G enitourinary: Frequent urination o nce a night. M usculoskeletal: Muscle aches d enies. P ainful joints d enies. S ciatica d enies. W eakness d enies. S kin: Itching d enies. R rizwan d enies. S kin lesion(s)?denies. N eurologic: Difficulty speaking d enies. D izziness d enies.?Headache d enies. L ow back pain d enies. P sychiatric: Depressed mood w hich is mild. * Medical History: * Surgical History: T onsilectomy * Hospitalization/Major Diagno stic Procedure: N o Hospitalization History. * Family History: F ather: 88 yrs, No information, diagnosed with CVD. M other: 84 yrs, History of breast cancer, diagnosed with CVD. 2 brother(s) , 2 sister(s) - healthy. 2 daughter(s) - healthy. . His mother has a history of breast cancer. He is not aware of any other cases of breast cancer uterine cancer colon cancer prostate cancer or pancreatic cancer. He is not aware of any inherited cancer syndromes in his family. His children and grand child are healthy and well. 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 He was born in [facility]. He was in 2010. He has 2 healthy daughters one of whom has back issues. He has 1 healthy grandchild. He does not smoke or drink alcohol. He is living with a significant other, Gabrielle. * Medications: T akingLevothyroxine Sodium 50 MCG Tablet TAKE 1 TABLET BY MOUTH EVERY DAY IN THE MORNING ON EMPTY STOMACH FOR 30 DAYS Zinc 100 MG Tablet 1 tablet Orally Once a dayVitamin C 1000 MG Tablet 1 tablet Orally Once a daybuPROPion HCl ER (SR) 100 MG Tablet Extended Release 12 Hour 1 tablet in the morning Orally Once a dayMedication List reviewed and reconciled with the patientTaking Levothyroxine Sodium 50 MCG Tablet TAKE 1 TABLET BY MOUTH EVERY DAY IN THE MORNING ON EMPTY STOMACH FOR 30 DAYS Taking Zinc 100 MG Tablet 1 tablet Orally Once a dayTaking Vitamin C 1000 MG Tablet 1 tablet Orally Once a dayTaking buPROPion HCl ER (SR) 100 MG Tablet Extended Release 12 Hour 1 tablet in the morning Orally Once a dayMedication List reviewed and reconciled with the patient * Allergies: N o Known Drug AllergySeasonaleno[Allergies Verified] Objective: * Vitals: H t: 70, Wt:169, BMI:24.25, BP:122/71, HR:83, Temp:97.5, Wt-k.66. * P ast Orders: Lab:Thyroid Stimulating Horm one * Order Date 05/24/2023 11/15/2022 Thyroid Stimulating Hormone 0.91 (Ref Range: 0.32-4.0 uIU/mL) 0.97 (Ref Range: 0.32-4.0 uIU/mL) ???Lab:Free T4 (Free Thyroxine) (Order Date - 05/24/2023) (Collection Date - 05/24/2023)?ValueReference Range?Free T4 (Free Thyroxine)1.110.71- 1.85 - ng/dL ???Lab:Comprehensive Met. Panel (Order Date - 05/24/2023) (Collection Date - 05/24/2023)?ValueReference Range?[id number] - mmol/L ?Bilirubin Total0.70.0-1.0 - mg/dL?Aspartate Amino Csjgqvwsvlc485- 37 - U/L?Alanine Cfvkksvuugxgacjz105-93 - U/L?Total Protein7.26.5- 8.0 - g/dL?Albumin Level4.13.5-5.0 - g/dL?Alkaline Rqwrcapbymj21 39-117 - U/L?Potassium3.93.3-5.1 - mmol/L?Fgcyzill93938-654 - mmol/L?Carbon Parftqh5792-42 - mmol/L?Anion Xfw72A74-15 - ?Blood Urea Ifkqbufl67B9-83 - mg/dL?Creatinine1.250.5-1.4 - mg/dL ?Estimated Glomerular Filt Rate57-?Glucose Wpgzhh64046-636 - mg/dL ?Calcium9.48.4-10.2 - mg/dL * Lab:Complete Blood Count Aut o Diff * Order Date 05/24/2023 11/15/2022 White Blood Count 5.4 (Ref Range: 4.8-10.8 X10*3/uL) 5.2 (Ref Range: 4.8-10.8 X10*3/uL) Red Blood Count 4.81 (Ref Range: 4.60-5.80 X10*6/uL) 4.75 (Ref Range: 4.60-5.80 X10*6/uL) Hemoglobin 14.9 (Ref Range: 14.0-18.0 g/dl) 14.8 (Ref Range: 14.0-18.0 g/dl) Hematocrit 43.8 (Ref Range: 42.0-52.0 %) 43.7 (Ref Range: 42.0-52.0 %) Mean Corpuscular Volume 91.1 (Ref Range: 80.0-98.0 fL) 92.0 (Ref Range: 80.0-98.0 fL) Mean Corpuscular Hemoglobin 31.0 (Ref Range: 27.0-33.0 pg) 31.2 (Ref Range: 27.0-33.0 pg) Mean Corpuscular HGB Conc 34.0 (Ref Range: 31.0-36.0 g/dl) 33.9 (Ref Range: 31.0-36.0 g/dl) Red Cell Distribution Width 13.4 (Ref Range: 11.0-16.0 %) 13.0 (Ref Range: 11.0-16.0 %) Platelet Count 177 (Ref Range: 160-400 X10*3/uL) 206 (Ref Range: 160-400 X10*3/uL) Mean Platelet Volume 10.3 (Ref Range: 9.4-12.4 fL) 10.5 (Ref Range: 9.4-12.4 fL) Neutrophils Percent Auto 49.8 (Ref Range: 45-73 %) 53.6 (Ref Range: 45-73 %) Imm Gran Pct Auto 0.2 (Ref Range: 0.0-0.4 %) 0.2 (Ref Range: 0.0-0.4 %) Lymphocytes Percent Auto 32.9 (Ref Range: 20-40 %) 29.6 (Ref Range: 20-40 %) Monocytes Percent Auto 11.2 H (Ref Range: 2-11 %) 11.0 (Ref Range: 2-11 %) Eosinophils Percent Auto 5.2 H (Ref Range: 0-4 %) 4.8 H (Ref Range: 0-4 %) Basophils Percent Auto 0.7 (Ref Range: 0-2 %) 0.8 (Ref Range: 0-2 %) NRBC Pct Auto 0.0 (Ref Range: 0.0-0.2 /100WBC) 0.0 (Ref Range: 0.0-0.2 /100WBC) Neutrophils Absolute Auto 2.7 (Ref Range: 2.0-8.3 x10*3/uL) 2.8 (Ref Range: 2.0-8.3 x10*3/uL) Imm Gran Abs Auto 0.01 (Ref Range: 0.00-0.03 X10*3/uL) 0.01 (Ref Range: 0.00-0.03 X10*3/uL) Lymphocytes Absolute Auto 1.8 (Ref Range: 1.2-4.9 X10*3/uL) 1.5 (Ref Range: 1.2-4.9 X10*3/uL) Monocytes Absolute Auto 0.6 (Ref Range: 0.1-1.2 X10*3/uL) 0.6 (Ref Range: 0.1-1.2 X10*3/uL) Eosinophils Absolute Auto 0.3 (Ref Range: 0.0-0.4 X10*3/uL) 0.3 (Ref Range: 0.0-0.4 X10*3/uL) Basophils Absolute Auto 0.0 (Ref Range: 0.0-0.2 X10*3/uL) 0.0 (Ref Range: 0.0-0.2 X10*3/uL) NRBC Abs Auto 0.000 (Ref Range: 0.0-0.012 X10*3/uL) 0.000 (Ref Range: 0.0-0.012 X10*3/uL) * Lab:Vitamin D 25-OH Total * Order Date 05/24/2023 11/15/2022 Vitamin D 25-OH Total 48.6 (Ref Range: >30 ng/mL) 49.8 (Ref Range: >30 ng/mL) * Examination: G eneral Examination: GENERAL APPEARANCE: p leasant, well nourished, well developed, in no acute distress, calm and relaxed , man. HEAD: a traumatic, normocephalic. EYES: e sofi, perrla, anicteric, conjugate. EARS: n ormal. NOSE: s eptum intact. ORAL CAVITY: n ormal, unremarkable. NECK/THYROID: n o jugular venous distention, no carotid bruit, thyroid normal. LYMPH NODES: n o enlarged lymph nodes,spleen normal. SKIN: n o suspicious lesions, anicteric. HEART: n o clicks, gallops, murmurs, or rubs, regular rhythm, S1, S2 normal, no s3, or vascular bruits. LUNGS: c lear to auscultation . BREASTS: no masses palpable bilaterally. ABDOMEN: b owel sounds normal, no ascites, no organomegaly, no mass. RECTAL EXAM: n ot examined. MUSCULOSKELETAL: e xtremities unremarkable, no clubbing, cyanosis or edema. PERIPHERAL PULSES: n ormal. NEUROLOGIC: a lert and oriented, cranial nerves 2-12 grossly intact, deep tendon reflexes 2+ symmetrical, motor strength normal upper and lower extremities, sensory exam intact. PSYCH: a lert, oriented , mood depressed. ? Assessment: * Assessment: 1. E ssential hypertension - I10, His blood pressure remains well controlled at 122/71 and no change in his regimen was needed. 2 . H ypothyroidism - E03.9, He has been compliant with his therapy and no change in his medications was necessary. 3 . V itamin D deficiency, unspecified - E55.9, He will continue on vitamin D. 4 . H istory of depression - Z86.59, He hasBeen feeling much better while taking the bupropion. The dose was increased and he will continue on it. His depression is beginning to resolve. A follow-up visit was arranged. Plan: * Treatment: 2. H ypothyroidism L AB: PROFILE, FASTING (COMPREHENSIVE METABOLIC) L AB: TSH (THYROID STIMULATING HORMONE) L AB: CBC WITH AUTO DIFF L AB: Lipid Panel L AB: Free T4 (Free Thyroxine) 3. O thers Continue Levothyroxine Sodium Tablet, 50 MCG, TAKE 1 TABLET BY MOUTH EVERY DAY IN THE MORNING ON EMPTY STOMACH FOR 30 DAYS; C ontinue Zinc Tablet, 100 MG, 1 tablet, Orally, Once a day; C ontinue Vitamin C Tablet, 1000 MG, 1 tablet, Orally, Once a day; C ontinue buPROPion HCl ER (SR) Tablet Extended Release 12 Hour, 100 MG, 1 tablet in the morning, Orally, Once a day; S tart Triamcinolone Acetonide Cream, 0.025 %, 1 application, Externally, Once a day, 30 days, 60 Gram, Refills 6. * Procedure Codes: * Follow Up: 4 Months (Reason: OV) * Images: * Sign off status: Completed true * Provider: Christiano Carey MD Date: 0 07/27/2023 Generated for Olga Lidia rogers/Helen/Desmonditting on: 03/17/2024 01:27 PM EST History and Physical Notes * HPI (History of Present Illness) Category Sub-Category Detail Notes COVID-19 Screening Questions Have you had any new onset fever, chills, cough, congestion, sore throat, shortness of breath, muscle aches?: No Have you been exposed to the virus withi n the last 10 days?: No Have you travelled internationally in e last 10 days?: No Have you been exposed to COVID-19 in the past?: No Examination Category Sub-Category Detail Notes General Examination GENERAL APPEARANCE: pleasant , well nourished, well developed, in no acute distress, calm and relaxed , man HEAD: atraumatic, normocep halic EYES: eomi, perrla, anicte tessie, conjugate EARS: normal NOSE: septum intact NECK/THYROID: no jugular venous di stention, no carotid bruit, thyroid normal HEART: no clicks, gallops, murmurs, or rubs, regular rhythm, S1, S2 normal, no s3, or vascular bruits LUNGS: clear to auscultatio n ABDOMEN: bowel sounds normal, no ascites, no organomegaly, no mass NEUROLOGIC: alert and oriented, cranial nerves 2-12 grossly intact, deep tendon reflexes 2+ symmetrical, motor strength normal upper and lower extremities, sensory exam intact SKIN: no suspicious lesion s, anicteric PERIPHERAL PULSES: normal BREASTS: no masses palpable b ilaterally MUSCULOSKELETAL: extremities unremark able, no clubbing, cyanosis or edema LYMPH NODES: no enlarged lymph no araceli,spleen normal RECTAL EXAM: not examined PSYCH: alert, oriented , mo od depressed ORAL CAVITY: normal, unremarkable
--- OUTSIDE RECORDS SUMMARY | 2023-09-05 04:39 | XMS_ITS ---
Author Organization Maury Carey III, MD Address [address] [place] [address] [place] [address] Care Team Providers Care Cigar Patcher Name Role Phone Dr. Maury Carey III Primary Care Provider REASON FOR VISIT Needs call back from MD Social History Sex Assigned At : Social History Observation Description Sex Assigned At Male Encounters Encounter Location Date Provider Diagnosis Maury Carey III, MD [address] [place] [address] [place] [address] 09/05/2023 Maury Carey Plan Of Treatment Next Appt Details Provider Name:Maury Carey , 01/21/2025 03:00:00 PM, [address] [place] [address] [place], [address], Progress Notes * MAGALYSServando COKERBereOB:1955 (67 yo M)Acc No.[id number]:09/05/2023 Patient: Quique Hutton :1955 A ge:67 Y S ex:Male Address:[address] [place], [address] * true * Date: Generated for Jayai sue/Michelleg/eTransmitting on: 03/17/2024 01:27 PM EST
--- OUTSIDE RECORDS SUMMARY | 2023-09-05 07:18 | XMS_ITS ---
Author Organization Maury Carey III, MD Address [address] [place] [address] Care Team Providers Care Cotton Washer Name Role Phone Dr. Maury Carey III Primary Care Provider Medications Medication SIG (Take, Route, Fr equency, Duration) Notes Start Date End Date Status Vardenafil HCl 20 MG 1 tablet 60 minutes before sexual activity as needed Orally Once a day for 30 days 09/05/2023 08/30/2024 Ac tive Social History Sex Assigned At : Social History Observation Description Sex Assigned At Male Encounters Encounter Location Date Provider Diagnosis Maury Carey III, MD [address] [place] [address] [place] [address] 09/05/2023 Maury Carey Plan Of Treatment Medication Medication Name Sig Start Date Stop Date Notes Vardenafil HCl 20 MG 1 tablet 60 minutes before sexual activity as needed Orally Once a day for 30 days 09/05/2023 08/30/2024 Next Appt Details Provider Name:Maury Carey , 01/21/2025 03:00:00 PM, [address] [place] [address] [place], [address], Progress Notes * Javier VUOB:1955 (67 yo M)Acc No.[id number]:09/05/2023 Patient: Quique Hutton :1955 A ge:67 Y S ex:Male Address:[address] [place], [address] * Refills Start Vardenafil HCl Tablet, 20 MG, Orally, 30, 1 tablet 60 minutes before sexual activity as needed, Once a day, 30 days, Refills=11 * true * Date: Generated for Olga Lidia rogers/Helen/Yohana on: 03/17/2024 01:25 PM EST
--- OUTSIDE RECORDS SUMMARY | 2023-11-22 08:45 | XMS_ITS ---
Author Organization Maury Carey III, MD Address [address] [place] [address] Care Team Providers Care Caddie Name Role Phone Dr. Maury Carey III Primary Care Provider [phone] Allergies Allergen (clinical drug ingredient) Drug/Non Drug [...] 07/27/2023 Active Ketoconazole 2 % 1 application Frame Welder [employer]ers ally Twice a day for 10 days [...] Problem Status W/U Status Risk Notes Problem [id number] Caio (N48.1) Active confirmed This has completely resolved Vital Signs Temperature 97.9 degrees Fahrenheit 11/22/19 24 Blood pressure systolic 106 mm Hg 11/22/19 24 Blood pressure diastolic 62 mm Hg 024 Heart Rate 70 /min 11/22/2023 Height 70 in 11/22/2023 Weight 169 lbs 11/22/2023 BMI 24.25 kg/m2 11/22/2023 Encounters Encounter Location Date Provider Diagnosis Maury Carey III, MD [address] [place] [address] [address] [place], [place] [phone] 11/22/2023 Maury Carey Caio N48.1 ; Essential [...] day 07/27/2023 Ketoconazole 2 % 1 application Frame Welder [employer] Trailers ally Twice a day for 10 days [...] Reason: Office visit Provider Name:Maury Carey , 01/21/2025 03:00:00 PM, [address] [place] [address] [place], [address], Progress Notes * Javier VUOB:1955 (68 yo M)Acc No.[id number]:11/22/2023 Progress Notes Patient: Quique Hutton Provider: Christiano Carey MD :1955 A ge:68 Y S ex:Male Date:11/22/2023 Address[place] [place], [id number] Subjective: * Chief Complaints: * P enile itching and erythemaHypertensionDepressionHypothyroidBenign prostatic hypertrophy * HPI: C OVID-19 Screening: He comes to the office because he has had a pruritic red area on the glans of his penis for a week. It has not responded to uuad-ssj-gwgbfbn ointments. Upon inspection it appeared to be a small area of balanitis. He did not wish to take an ugct-pcn-qwpznbh medication such as terbinafine. 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 He [...] 11/22/2023 Generated for Olga Lidia rogers/Helen/eTransmitting on: 03/17/2024 01:25 PM EST History and Physical Notes * [...]
--- OUTSIDE RECORDS SUMMARY | 2023-11-23 09:22 | XMS_ITS ---
Author Organization Maury Carey III, MD Address [address] [place] [address] Care Team Providers Care Director Of Staff Development Name Role Phone Dr. Maury Carey III [...] Date Provider Diagnosis Maury Carey III, MD [address] [place] [address] [place] [phone] 11/23/2023 Maury Carey Plan Of Treatment Medication Medication Name Sig Start Date Stop Date Notes buPROPion HCl ER (SR) 100 MG 1 tablet in the morning Orally Once a day for 30 days 05/24/2023 Next Appt Details Provider Name:Maury Carey , 01/21/2025 03:00:00 PM, [address] [place] [address] [place], [phone], Progress Notes * Javier VUOB:1955 (68 yo M)Acc No.[id number]:11/23/2023 Patient: Quique Hutton :1955 A ge:68 Y S ex:Male Address:[address] [place], [address] * Refills Refill buPROPion HCl ER (SR) Tablet Extended Release 12 Hour, 100 MG, Orally, 30 Tablet, 1 tablet in the morning, Once a day, 30 days, Refills=11 * true * Date: Generated for Olga Lidia rogers/Helen/Yohana on: 03/17/2024 01:26 PM EST
--- OUTSIDE RECORDS SUMMARY | 2023-11-25 03:15 | XMS_ITS ---
Author Organization Maury Carey III, MD Address [address] [place] [address] Care Team Providers Care Special Needs Child Caregiver Name Role Phone Dr. Maury Carey III Primary Care Provider REASON FOR VISIT Follow Up Social History Sex Assigned At : Social History Observation Description Sex Assigned At Male Encounters Encounter Location Date Provider Diagnosis Maury Carey III, MD [address] [place] [address] [address] [place] [address] 11/25/2023 Maury Carey Plan Of Treatment Next Appt Details Provider Name:Maury Carey , 01/21/2025 03:00:00 PM, [address] [place] [address] [place], [address], Progress Notes * Javier VUOB:1955 (69 yo M)Acc No.[id number]:11/25/2023 Progress Notes Patient: Quique RUBIO Provider: Christiano Carey MD :1955 A ge:68 Y S ex:Male Date:11/25/2023 [address] [id number] Subjective: * Chief Complaints: * 1 . Follow Up. * Medical History: Objective: * Vitals: Assessment: Plan: * Treatment: * Images: * The named appointment provid er may or may not be the originator of this progress note, and it is not deemed complete until electronically signed by the appointment provider. Sign off status: Pending * Provider: Christiano Carey MD Date: 0 11/25/2023 Generated for Olga Lidia rogers/Helen/Yohana on: 03/17/2024 01:25 PM EST
--- OUTSIDE RECORDS SUMMARY | 2024-01-17 10:00 | XMS_ITS ---
Author Organization Maury Carey III, MD Address [address] [address] Care Team Providers Care Sales Market Leader Name Role Phone Dr. Maury Carey III Primary Care Provider Allergies Allergen (clinical drug ingredient) Drug/Non Drug Allergy documented on EMR Reaction Allergy Type Onset Date Status No Known Drug Allergy Unknown Drug Allergy Active Seasonale Unknown Drug Allergy Active REASON FOR VISIT Annual Exam review labs Medications Medication SIG (Take, Route, Frequency, Duration) Notes Start Date End Date Status Levothyroxine Sodium 50 MCG TAKE 1 TABLE T BY MOUTH EVERY DAY IN THE MORNING ON EMPTY STOMACH FOR 30 DAYS Active Zinc 100 MG 1 tablet Orally Once a day Active Vitamin C 1000 MG 1 tablet Orally Once a day Active Triamcinolone Acetonide 0.025 % 1 application Externally Once a day 07/27/2023 Active Vardenafil HCl 20 MG 1 tablet 60 minutes before sexual activity as needed Orally Once a day 09/05/2023 Active buPROPion HCl ER (SR) 100 MG 1 tablet in the morning Orally Once a day 05/24/2023 Active Social History Tobacco Use: Social History Observation Description Date Details (start date - stop date) Never Smoker NA - NA Sex Assigned At : Social History Observation Description Sex Assigned At Male Tobacco Use/Smoking Question Answer Notes Patient is a nonsmoker Additional Findings: Tobacco Non-User Aggressive non-smoker Vital Signs Temperature 97.8 degrees Fahrenheit 01/17/20 24 Blood pressure systolic 125 mm Hg 01/17/20 24 Blood pressure diastolic 75 mm Hg 024 Heart Rate 79 /min 01/17/2024 Height 70 in 01/17/2024 Weight 168 lbs 01/17/2024 BMI 24.1 kg/m2 01/17/2024 Encounters Encounter Location Date Provider Diagnosis Maury Carey III, MD [address] [place] [address] [address] [place], [place] [phone] 01/17/2024 Maury Carey Hypothyroidism E03.9 ; Essential hypertension I10 ; History of depression Z86.59 ; Vitamin D deficiency, unspecified E55.9 ; BPH (benign prostatic hypertrophy) N40.0 and Balanitis N48.1 Assessments Encounter Date Diagnosis (ICD Code) Assessment Notes Treat ment Notes Treatment Clinical Notes 01/17/2024 Hypothyroidism (ICD-10 - E03.9) His thyroid function tests are within normal limits. No changes to his medications was necessary. 01/17/2024 Essential hypertension (ICD-10 - I10) His blood pressure remains well controlled and no change in his regimen was needed. 01/17/2024 History of depressio n (ICD-10 - Z86.59) He hasBeen feeling much better while taking the bupropion. The dose was increased and he will continue on it. His depression is beginning to resolve. A follow-up visit was arranged. 01/17/2024 Vitamin D deficiency , unspecified (ICD-10 - E55.9) He will continue on vitamin D. 01/17/2024 BPH (benign prostati c hypertrophy) (ICD-10 - N40.0) He arises from sleep once or twice a night to urinate. No change in his regimen is needed. We discussed lifestyle modification as a way to to reduceNocturia. 01/17/2024 Balanitis (ICD-10 - N48.1) This has completely resolved Plan Of Treatment Medication Medication Name Sig Start Date Stop Date Notes Levothyroxine Sodium 50 MCG TAKE 1 TABLE T BY MOUTH EVERY DAY IN THE MORNING ON EMPTY STOMACH FOR 30 DAYS Zinc 100 MG 1 tablet Orally Once a day Vitamin C 1000 MG 1 tablet Orally Once a day Triamcinolone Acetonide 0.02 5 % 1 application Externally Once a day 07/27/2023 Vardenafil HCl 20 MG 1 tablet 60 minutes before sexual activity as needed Orally Once a day 09/05/2023 buPROPion HCl ER (SR) 100 MG 1 tablet in the morning Orally Once a day 05/24/2023 Pending Test Test Name Order Date PROFILE, FASTING (COMPREHENSIVE METABOLI C) 01/17/2024 TSH (THYROID STIMULATING HORMONE) 2023 CBC WITH AUTO DIFF 01/17/2024 Lipid Panel 01/17/2024 Free T4 (Free Thyroxine) 01/17/2024 Next Appt Details Follow Up: 4 Months, Reason: OV Provider Name:Maury Grijalvane , 01/21/2025 03:00:00 PM, [address] [place] [address], [address], Progress Notes * Javier VUOB:1955 (68 yo M)Acc No.[id number]:01/17/2024 Progress Notes Patient: Quique RUBIO Provider: Christiano Carey MD :1955 A ge:68 Y S ex:Male Date:01/17/2024 [facility] Subjective: * Chief Complaints: * A nnual Exam review labs * HPI: D epression Screening: PHQ-9 L ittle interest or pleasure in doing things?Not at all F eeling down, depressed, or hopeless N ot at all T rouble falling or staying asleep, or sleeping too much N ot at all F eeling tired or having little energy N ot at all P oor appetite or overeating N ot at all F eeling bad about yourself or that you are a failure, or have let yourself or your family down N ot at all T rouble concentrating on things, such as reading the newspaper or watching television N ot at all M oving or speaking so slowly that other people could have noticed; or the opposite, being so fidgety or restless that you have been moving around a lot more than usual N ot at all T houghts that you would be better off or of hurting yourself in some way N ot at all T otal Score 0 C OVID-19 Screening: Questions H ave you experienced fever, chills, cough, sore throat, shortness of breath, difficulty breathing, muscle aches, loss of taste or smell? N o H ave you been exposed to the virus within the last 10 days? N o H ave you travelled internationally in the last 10 days? N o H ave you been exposed to COVID-19 in the past? N o F all Risk Screening: Fall History H ave you had any falls with injury in the past year? N o H ave you had two or more falls in the past year? N o F all Risk Assessment: S GIANCARLO Questions: SDOH Questions I n the past year have you been worried about losing your housing? N o I n the past year have you or any family members you live with been unable to get any of the following when it was really needed? Check all that apply: N one * : The patient, a 68-year-old male, presented with persistent skin issues, particularly on his feet. He described the condition as itchy and noted that it had been worsening, with the symptoms spreading. He had been using gros-mkx-ztyccah antifungal medication, but it did not seem to be strong enough. He also mentioned a spot on his arm that had been irritated for three days, which he attributed to the removal of tape. The patient also reported having athlete's foot. He had been trying to manage the condition by powdering his feet and considering changing his shoes and socks during the day. He also mentioned having a colonoscopy in 2019, with no findings. The patient reported no coughing, heartburn, or other discomforts, and stated that he felt quite good except for his skin issues. Blood Sugar Level is 99. * ROS: G eneral/Constitutional: pain o nly [...] appetite d enies. D iarrhea d enies. D enies H eartburn, o ccasional. N ausea d enies.?Rectal bleeding d enies. V omiting d enies. 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 He was in 2010. He has 2 healthy daughters one of whom has back issues. He has 1 healthy grandchild. He does not smoke or drink alcohol. He is living with a significant other, Gabrielle. * Medications: T akingVardenafil HCl 20 MG Tablet 1 tablet 60 minutes before sexual activity as needed Orally Once a day Levothyroxine Sodium 50 MCG Tablet TAKE 1 TABLET BY MOUTH EVERY DAY IN THE MORNING ON EMPTY STOMACH FOR 30 DAYS Zinc 100 MG Tablet 1 tablet Orally Once a day Vitamin C 1000 MG Tablet 1 tablet Orally Once a day Triamcinolone Acetonide 0.025 % Cream 1 application Externally Once a day buPROPion HCl ER (SR) 100 MG Tablet Extended Release 12 Hour 1 tablet in the morning Orally Once a day Medication List reviewed and reconciled with the patientTaking Vardenafil HCl 20 MG Tablet 1 tablet 60 minutes before sexual activity as needed Orally Once a day Taking Levothyroxine Sodium 50 MCG Tablet TAKE 1 TABLET BY MOUTH EVERY DAY IN THE MORNING ON EMPTY STOMACH FOR 30 DAYS Taking Zinc 100 MG Tablet 1 tablet Orally Once a day Taking Vitamin C 1000 MG Tablet 1 tablet Orally Once a day Taking Triamcinolone Acetonide 0.025 % Cream 1 application Externally Once a day Taking buPROPion HCl ER (SR) 100 MG Tablet Extended Release 12 Hour 1 tablet in the morning Orally Once a day Medication List reviewed and reconciled with the patient * Allergies: N o Known Drug AllergySeasonaleno[Allergies Verified] Objective: * Vitals: H t: 70, Wt:168, BMI:24.1, BP:125/75, HR:79, Temp:97.8, Wt-k.2. * P ast Orders: Lab:Comprehensive [place]. Tere l Fast * Collection Date 01/12/2024 11/15/2022 Collection Time 12:01 PM 01:57 PM Order Date 01/12/2024 11/15/2022 Sodium 139 (Ref Range: 135-145 mmol/L) 141 (Ref Range: 135-145 mmol/L) Bilirubin Total 1.0 (Ref Range: 0.0-1.0 mg/dL) 0.9 (Ref Range: 0.0-1.0 mg/dL) Aspartate Amino Transferase 29 (Ref Range: 5-37 U/L) 21 (Ref Range: 5-37 U/L) Alanine Aminotransferase 32 (Ref Range: 0-40 U/L) 22 (Ref Range: 0-40 U/L) Total Protein 7.4 (Ref Range: 6.5-8.0 g/dL) 7.1 (Ref Range: 6.5-8.0 g/dL) Albumin Level 4.2 (Ref Range: 3.5-5.0 g/dL) 4.2 (Ref Range: 3.5-5.0 g/dL) Alkaline Phosphatase 59 (Ref Range: 39-117 U/L) 53 (Ref Range: 39-117 U/L) Potassium 4.6 (Ref Range: 3.3-5.1 mmol/L) 4.6 (Ref Range: 3.3-5.1 mmol/L) Chloride 107 (Ref Range: 96-108 mmol/L) 107 (Ref Range: 96-108 mmol/L) Carbon Dioxide 26 (Ref Range: 22-29 mmol/L) 27 (Ref Range: 22-29 mmol/L) Anion Gap 11 L (Ref Range: 12-20) 12 (Ref Range: 12-20) Blood Urea Nitrogen 19 H (Ref Range: 9-16 mg/dL) 19 H (Ref Range: 9-16 mg/dL) Creatinine 1.21 (Ref Range: 0.5-1.4 mg/dL) 1.20 (Ref Range: 0.5-1.4 mg/dL) Estimated Glomerular Filt Rate 59 > 60 Glucose Fasting 99 (Ref Range: 60-99 mg/dL) 97 (Ref Range: 60-99 mg/dL) Calcium 9.7 (Ref Range: 8.4-10.2 mg/dL) 10.0 (Ref Range: 8.4-10.2 mg/dL) * Lab:Lipid Panel * Collection Date 01/12/2024 11/15/2022 Collection Time 12:01 PM 01:57 PM Order Date 01/12/2024 11/15/2022 Triglycerides 94 (Ref Range: <150 mg/dL) 142 (Ref Range: <150 mg/dL) Cholesterol 204 H (Ref Range: <200 mg/dL) 198 (Ref Range: <200 mg/dL) LDL Cholesterol Calculated 131 H (Ref Range: <100 mg/dL) 128 H (Ref Range: <100 mg/dL) HDL Cholesterol 55 (Ref Range: >40 mg/dL) 42 (Ref Range: >40 mg/dL) * Lab:Free T4 (Free Thyroxine) * Collection Date 01/12/2024 05/24/2023 Collection Time 12:01 PM 04:49 PM Order Date 01/12/2024 05/24/2023 Free T4 (Free Thyroxine) 1.11 (Ref Range: 0.71-1.85 ng/dL) 1.11 (Ref Range: 0.71-1.85 ng/dL) * Lab:Thyroid Stimulating Horm one * Collection Date 01/12/2024 05/24/2023 11/15/2022 Collection Time 12:01 PM 04:49 PM 01:57 PM Order Date 01/12/2024 05/24/202311/15/2022 Thyroid Stimulating Hormone 1.75 (Ref Range: 0.32-4.0 uIU/mL) 0.91 (Ref Range: 0.32-4.0 uIU/mL) 0.97 (Ref Range: 0.32-4.0 uIU/mL) * Lab:Complete Blood Count Aut o Diff * Collection Date 01/12/2024 05/24/2023 11/15/2022 Collection Time 12:01 PM 04:49 PM 01:57 PM Order Date 01/12/2024 05/24/2023 11/15/2022 White Blood Count 5.7 (Ref Range: 4.8-10.8 X10*3/uL) 5.4 (Ref Range: 4.8-10.8 X10*3/uL) 5.2 (Ref Range: 4.8-10.8 X10*3/uL) Red Blood Count 4.74 (Ref Range: 4.60-5.80 X10*6/uL) 4.81 (Ref Range: 4.60-5.80 X10*6/uL) 4.75 (Ref Range: 4.60-5.80 X10*6/uL) Hemoglobin 14.5 (Ref Range: 14.0-18.0 g/dl) 14.9 (Ref Range: 14.0-18.0 g/dl) 14.8 (Ref Range: 14.0-18.0 g/dl) Hematocrit 43.5 (Ref Range: 42.0-52.0 %) 43.8 (Ref Range: 42.0-52.0 %) 43.7 (Ref Range: 42.0-52.0 %) Mean Corpuscular Volume 91.8 (Ref Range: 80.0-98.0 fL) 91.1 (Ref Range: 80.0-98.0 fL) 92.0 (Ref Range: 80.0-98.0 fL) Mean Corpuscular Hemoglobin 30.6 (Ref Range: 27.0-33.0 pg) 31.0 (Ref Range: 27.0-33.0 pg) 31.2 (Ref Range: 27.0-33.0 pg) Mean Corpuscular HGB Conc 33.3 (Ref Range: 31.0-36.0 g/dl) 34.0 (Ref Range: 31.0-36.0 g/dl) 33.9 (Ref Range: 31.0-36.0 g/dl) Red Cell Distribution Width 13.4 (Ref Range: 11.0-16.0 %) 13.4 (Ref Range: 11.0-16.0 %) 13.0 (Ref Range: 11.0-16.0 %) Platelet Count 217 (Ref Range: 160-400 X10*3/uL) 177 (Ref Range: 160-400 X10*3/uL) 206 (Ref Range: 160-400 X10*3/uL) Mean Platelet Volume 9.9 (Ref Range: 9.4-12.4 fL) 10.3 (Ref Range: 9.4-12.4 fL) 10.5 (Ref Range: 9.4-12.4 fL) Neutrophils Percent Auto 53.8 (Ref Range: 45-73 %) 49.8 (Ref Range: 45-73 %) 53.6 (Ref Range: 45-73 %) Imm Gran Pct Auto 0.4 (Ref Range: 0.0-0.4 %) 0.2 (Ref Range: 0.0-0.4 %) 0.2 (Ref Range: 0.0-0.4 %) Lymphocytes Percent Auto 29.1 (Ref Range: 20-40 %) 32.9 (Ref Range: 20-40 %) 29.6 (Ref Range: 20-40 %) Monocytes Percent Auto 10.9 (Ref Range: 2-11 %) 11.2 H (Ref Range: 2-11 %) 11.0 (Ref Range: 2-11 %) Eosinophils Percent Auto 4.9 H (Ref Range: 0-4 %) 5.2 H (Ref Range: 0-4 %) 4.8 H (Ref Range: 0-4 %) Basophils Percent Auto 0.9 (Ref Range: 0-2 %) 0.7 (Ref Range: 0-2 %) 0.8 (Ref Range: 0-2 %) NRBC Pct Auto 0.0 (Ref Range: 0.0-0.2 /100WBC) 0.0 (Ref Range: 0.0-0.2 /100WBC) 0.0 (Ref Range: 0.0-0.2 /100WBC) Neutrophils Absolute Auto 3.1 (Ref Range: 2.0-8.3 x10*3/uL) 2.7 (Ref Range: 2.0-8.3 x10*3/uL) 2.8 (Ref Range: 2.0-8.3 x10*3/uL) Imm Gran Abs Auto 0.02 (Ref Range: 0.00-0.03 X10*3/uL) 0.01 (Ref Range: 0.00-0.03 X10*3/uL) 0.01 (Ref Range: 0.00-0.03 X10*3/uL) Lymphocytes Absolute Auto 1.7 (Ref Range: 1.2-4.9 X10*3/uL) 1.8 (Ref Range: 1.2-4.9 X10*3/uL) 1.5 (Ref Range: 1.2-4.9 X10*3/uL) Monocytes Absolute Auto 0.6 (Ref Range: 0.1-1.2 X10*3/uL) 0.6 (Ref Range: 0.1-1.2 X10*3/uL) 0.6 (Ref Range: 0.1-1.2 X10*3/uL) Eosinophils Absolute Auto 0.3 (Ref Range: 0.0-0.4 X10*3/uL) 0.3 (Ref Range: 0.0-0.4 X10*3/uL) 0.3 (Ref Range: 0.0-0.4 X10*3/uL) Basophils Absolute Auto 0.1 (Ref Range: 0.0-0.2 X10*3/uL) 0.0 (Ref Range: 0.0-0.2 X10*3/uL) 0.0 (Ref Range: 0.0-0.2 X10*3/uL) NRBC Abs Auto 0.000 (Ref Range: 0.0-0.012 X10*3/uL) 0.000 (Ref Range: 0.0-0.012 X10*3/uL) 0.000 (Ref Range: 0.0-0.012 X10*3/uL) * Examination: G eneral Examination: GENERAL APPEARANCE: p leasant, well nourished, well developed, in no acute distress, calm and relaxed, man. HEAD: a traumatic, normocephalic. EYES: e [...] ascites, no organomegaly, no mass. RECTAL EXAM: , normal tone, no external hemorrhoids, no masses palpable, no melena, prostate normal, no red blood, stool guaiac negative. MUSCULOSKELETAL: e xtremities unremarkable, no clubbing, cyanosis or edema. PERIPHERAL PULSES: n ormal. NEUROLOGIC: a lert and oriented, cranial nerves 2-12 grossly intact, deep tendon reflexes 2+ symmetrical, motor strength normal upper and lower extremities, sensory exam intact. PSYCH: , alert, oriented, cognitive function intact, speech clear, thought process logical, goal directed. Assessment: * Assessment: 1. H ypothyroidism - E03.9 (Primary) N otes :His thyroid function tests are within normal limits. No changes to his medications was necessary. 2 . E ssential hypertension - I10 N otes :His blood pressure remains well controlled and no change in his regimen was needed. 3 . H istory of depression - Z86.59 N otes :He hasBeen feeling much better while taking the bupropion. The dose was increased and he will continue on it. His depression is beginning to resolve. A follow-up visit was arranged. 4 . V itamin D deficiency, unspecified - E55.9 N otes :He will continue on vitamin D. 5 . B PH (benign prostatic hypertrophy) - N40.0 N otes :He arises from sleep once or twice a night to urinate. No change in his regimen is needed. We discussed lifestyle modification as a way to to reduceNocturia. 6 . B alanitis - N48.1 N otes :This has completely resolved Plan: * Treatment: 2. O thers Continue buPROPion HCl ER (SR) Tablet Extended Release 12 Hour, 100 MG, 1 tablet in the morning, Orally, Once a day; C ontinue Vardenafil HCl Tablet, 20 MG, 1 tablet 60 minutes before sexual activity as needed, Orally, Once a day; C ontinue Levothyroxine Sodium Tablet, 50 MCG, TAKE 1 TABLET BY MOUTH EVERY DAY IN THE MORNING ON EMPTY STOMACH FOR 30 DAYS; C ontinue Zinc Tablet, 100 MG, 1 tablet, Orally, Once a day; C ontinue Vitamin C Tablet, 1000 MG, 1 tablet, Orally, Once a day;?Continue Triamcinolone Acetonide Cream, 0.025 %, 1 application, Externally, Once a day. ? * Procedure Codes: * Preventive Medicine: Counseling: C are goal follow-up plan: Counseling for abnormal BMI given Y es Above Normal BMI Follow-up D ietary management education, guidance, and counseling * Follow Up: 4 Months (Reason: OV) * Images: * Sign off status: Completed true * Provider: Christiano Carey MD Date: 03/18/2023 Generated for Olga Lidia rogers/Helen/Desmonditting on: 03/17/2024 01:26 PM EST History and Physical Notes * HPI (History of Present Illness) Category Sub-Category Detail Notes Depression Screening PHQ-9 Little inte rest or pleasure in doing things: Not at all Feeling down, depressed, or hopeless: No t at all Trouble falling or staying asleep, or sl eeping too much: Not at all Feeling tired or having little energy: N ot at all Poor appetite or overeating: Not at all Feeling bad about yourself o r that you are a failure, or have let yourself or your family down: Not at all Trouble concentrating on thi ngs, such as reading the newspaper or watching television: Not at all Moving or speaking so slowly that other people could have noticed; or the opposite, being so fidgety or restless that you have been moving around a lot more than usual: Not at all Thoughts that you would be b sunshine off or of hurting yourself in some way: Not at all Total Score: 0 Fall Risk Screening Fall History Have you had any falls with injury in the past year?: No Have you had two or more falls in the ?: No Fall Risk Assessment:: COVID-19 Screening Questions Have you had any new onset fever, chills, cough, congestion, sore throat, shortness of breath, muscle aches?: No Have you been exposed to the virus with n the last 10 days?: No Have you travelled internationally in [facility] last 10 days?: No Have you been exposed to COVID-19 in the past?: No SDOH Questions SDOH Questions In the past year have you been worried about losing your housing?: No In the past year have you or any family members you live with been unable to get any of the following when it was really needed? Check all that apply:: None Examination Category Sub-Category Detail Notes General Examination GENERAL APPEARANCE: pleasant , well nourished, well developed, in no acute distress, calm and relaxed, man HEAD: atraumatic, normocep halic EYES: eomi, [...] enlarged lymph no araceli,spleen normal RECTAL EXAM: , normal tone, no ex ternal hemorrhoids, no masses palpable, no melena, prostate normal, no red blood, stool guaiac negative PSYCH: , alert, oriented, c ognitive function intact, speech clear, thought process logical, goal directed ORAL CAVITY: normal, unremarkable
--- OUTSIDE RECORDS SUMMARY | 2024-05-21 05:30 | XMS_ITS ---
Author Organization Maury Carey III, MD Address [address] [place] [address] Care Team Providers Care Superintendent Marine Name Role Phone Dr. Maury Carey III [...] III, MD [address] [place], [place] [address] 05/21/2024 Maury Carey Essential hypertensi on I10 [...] Provider Name:Maury Carey , 01/21/2025 03:00:00 PM, [address] [place] [address] [place], [place], [address], Progress Notes * Javier VUOB:1955 (68 yo M)Acc No.[id number]:05/21/2024 Progress Notes Patient: Quique RUBIO Provider: Christiano Carey MD :1955 A ge:68 Y S ex:Male Date:05/21/2024 Address:[address] [id number] Subjective: * Chief Complaints: * V ibration [...] 0 05/21/2024 Generated for Jayai sue/Helen/Eliasmitting on: 03/17/2024 01:26 PM EST History and [...]
--- OUTSIDE RECORDS SUMMARY | 2024-09-20 05:15 | XMS_ITS ---
Author Organization Maury Carey III, MD Address [address] [place] [address] Care Team Providers Care Grid Caster Name Role Phone Dr. Maury Carey III Primary Care Provider [phone] Allergies Allergen (clinical drug ingredient) Drug/Non Drug Allergy documented on EMR Reaction Allergy Type Onset Date Status No Known Drug Allergy Unknown Drug Allergy Active Seasonale Unknown Drug Allergy Active REASON FOR VISIT hypertension, depression, hypothyroid, BPH Medications Medication SIG (Take, Route, Frequency, Duration) Notes Start Date End Date Status Triamcinolone Acetonide 0.025 % 1 application Externally Once a day 07/27/2023 Active Levothyroxine Sodium 50 MCG TAKE 1 TABLE T BY MOUTH EVERY DAY Active buPROPion HCl ER (SR) 100 MG 1 tablet in the morning Orally Once a day 05/24/2023 Active Zinc 100 MG 1 tablet Orally [...] non-smoker Vital Signs Temperature 97.2 degrees Fahrenheit 09/21/19 25 Blood pressure systolic 140 mm Hg 09/21/19 25 Blood pressure diastolic 79 mm Hg 025 Heart Rate 65 /min 09/20/2024 Height 70 in 09/20/2024 Weight 168 lbs 09/20/2024 BMI 24.1 kg/m2 09/20/2024 Encounters Encounter Location Date Provider Diagnosis Maury Carey III, MD [address] [place] [address] [address] [place], [place] [address] 09/20/2024 Maury Carey Essential hypertensi on I10 ; BPH (benign prostatic hypertrophy) N40.0 ; Hypothyroidism E03.9 ; Vitamin D deficiency, unspecified E55.9 and History of depression Z86.59 Assessments Encounter Date Diagnosis (ICD Code) Assessment Notes Treat ment Notes Treatment Clinical Notes 09/20/2024 Essential hypertension (ICD-10 - I10) His blood pressure remains higher then we like. He was given an appointment in near future returned to the office to recheck it. If it remains at this level is treatment will be adjusted. 09/20/2024 BPH (benign prostati c hypertrophy) (ICD-10 - N40.0) He has been rising from sleep once a night depending upon fluid intake. We discussed ways to alter his lifestyle so this would be improved. 09/20/2024 Hypothyroidism (ICD-10 - E03.9) He remains euthyroid and no change in his regimen as necessary. 09/20/2024 Vitamin D deficiency , unspecified (ICD-10 - E55.9) His vitamin D supplements were continued. 09/20/2024 History of depressio n (ICD-10 - Z86.59) He hasBeen feeling much better while taking the bupropion. The dose was increased and he will continue on it. His depression is beginning to resolve. A follow-up visit was arranged. Plan Of Treatment Medication Medication Name Sig Start Date Stop Date Notes Triamcinolone Acetonide 0.02 5 % 1 application Externally Once a day 07/27/2023 Levothyroxine Sodium 50 MCG TAKE 1 TABLE T BY MOUTH EVERY DAY buPROPion HCl ER (SR) 100 MG 1 tablet in the morning Orally Once a day 05/24/2023 Zinc 100 MG 1 tablet Orally Once a day Vitamin C 1000 MG 1 tablet Orally Once a day Vardenafil HCl 20 MG 1 tablet 60 minutes before sexual activity as needed Orally Once a day 09/05/2023 Pending Test Test Name Order Date PROFILE, FASTING (COMPREHENSIVE METABOLI C) 09/20/2024 TSH (THYROID STIMULATING HORMONE) 2024 PSA, TOTAL 09/20/2024 CBC w DIFF 09/20/2024 Lipid Panel 09/20/2024 Vitamin D 25-OH Total 09/20/2024 Free T4 (Free Thyroxine) 09/20/2024 Next Appt Details Follow Up: As Scheduled, Alyssa son: Annual Exam Provider Name:Maury Carey , 01/21/2025 03:00:00 PM, [address] [place] [address], [address], Progress Notes * Javier VUOB:1955 (68 yo M)Acc No.[id number]:09/20/2024 Progress Notes Patient: Quique RUBIO Provider: Christiano Carey MD :1955 A ge:68 Y S ex:Male Date:09/20/2024 [facility] Subjective: * Chief Complaints: * H ypertensionDepressionHypothyroidBPH * HPI: C OVID-19 Screening: back from [place], noct x1. He returns to the office for routine scheduled medical maintenance. He has just returned weeks ago from a trip to [place]. He feels healthy and well. He is rising from sleep once a night to urinate. We have discussed lifestyle modifications he could use to reduce this. He has been compliant with all of his medications. He has no new complaints. No changes in his regimen or necessary today.Apprehensive blood work was available and was reviewed with him. Questions H ave you had any new [...] enies. D iarrhea d enies. H eartburn o ccasional. N ausea d enies. R ectal bleeding [...] pain d enies. P sychiatric: Depressed mood d enies. * Medical History: * Surgical History: T [...] He is living with a significant other, Gabrielel. * Medications: T akingLevothyroxine Sodium 50 MCG Tablet TAKE 1 TABLET BY MOUTH EVERY DAY buPROPion HCl ER (SR) 100 MG Tablet [...] Cream 1 application Externally Once a day Medication List reviewed and reconciled with the patientTaking Levothyroxine Sodium 50 MCG Tablet TAKE 1 TABLET BY MOUTH EVERY DAY Taking buPROPion HCl ER (SR) 100 MG [...] Cream 1 application Externally Once a day Medication List reviewed and reconciled with the patient * Allergies: N o Known Drug AllergySeasonaleno[Allergies Verified] Objective: * Vitals: H t: 70, Wt:168, BMI:24.1, BP:140/79, HR:65, Temp:97.2, Wt-k.2. * P ast Orders: Lab:Free T4 (Free Thyroxine) * Collection Date 09/17/2024 05/17/2024 01/12/2024 Collection Time 11:38 AM 10:59 AM 12:01 PM Order Date 09/17/2024 05/17/2024 01/12/2024 Free T4 (Free Thyroxine) 1.12 (Ref Range: 0.71-1.85 ng/dL) 1.08 (Ref Range: 0.71-1.85 ng/dL) 1.11 (Ref Range: 0.71-1.85 ng/dL) * Lab:Thyroid Stimulating Horm one * Collection Date 09/17/2024 05/17/2024 01/12/2024 Collection Time 11:38 AM 10:59 AM 12:01 PM Order Date 09/17/2024 05/17/2024 01/12/2024 Thyroid Stimulating Hormone 2.09 (Ref Range: 0.32-4.0 uIU/mL) 2.32 (Ref Range: 0.32-4.0 uIU/mL) 1.75 (Ref Range: 0.32-4.0 uIU/mL) * Lab:Complete Blood Count Aut o Diff * Collection Date 09/17/2024 05/17/2024 01/12/2024 Collection Time 11:38 AM 10:59 AM 12:01 PM Order Date 09/17/2024 05/17/2024 01/12/2024 White Blood Count 5.6 (Ref Range: 4.8-10.8 X10*3/uL) 7.0 (Ref Range: 4.8-10.8 X10*3/uL) 5.7 (Ref Range: 4.8-10.8 X10*3/uL) Red Blood Count 4.67 (Ref Range: 4.60-5.80 X10*6/uL) 4.56 L (Ref Range: 4.60-5.80 X10*6/uL) 4.74 (Ref Range: 4.60-5.80 X10*6/uL) Hemoglobin 14.1 (Ref Range: 14.0-18.0 g/dl) 14.2 (Ref Range: 14.0-18.0 g/dl) 14.5 (Ref Range: 14.0-18.0 g/dl) Hematocrit 42.8 (Ref Range: 42.0-52.0 %) 41.1 L (Ref Range: 42.0-52.0 %) 43.5 (Ref Range: 42.0-52.0 %) Mean Corpuscular Volume 91.6 (Ref Range: 80.0-98.0 fL) 90.1 (Ref Range: 80.0-98.0 fL) 91.8 (Ref Range: 80.0-98.0 fL) Mean Corpuscular Hemoglobin 30.2 (Ref Range: 27.0-33.0 pg) 31.1 (Ref Range: 27.0-33.0 pg) 30.6 (Ref Range: 27.0-33.0 pg) Mean Corpuscular HGB Conc 32.9 (Ref Range: 31.0-36.0 g/dl) 34.5 (Ref Range: 31.0-36.0 g/dl) 33.3 (Ref Range: 31.0-36.0 g/dl) Red Cell Distribution Width 13.6 (Ref Range: 11.0-16.0 %) 13.5 (Ref Range: 11.0-16.0 %) 13.4 (Ref Range: 11.0-16.0 %) Platelet Count 217 (Ref Range: 160-400 X10*3/uL) 180 (Ref Range: 160-400 X10*3/uL) 217 (Ref Range: 160-400 X10*3/uL) Mean Platelet Volume 10.5 (Ref Range: 9.4-12.4 fL) 9.6 (Ref Range: 9.4-12.4 fL) 9.9 (Ref Range: 9.4-12.4 fL) Neutrophils Percent Auto 56.0 (Ref Range: 45-73 %) 56.8 (Ref Range: 45-73 %) 53.8 (Ref Range: 45-73 %) Imm Gran Pct Auto 0.4 (Ref Range: 0.0-0.4 %) 0.3 (Ref Range: 0.0-0.4 %) 0.4 (Ref Range: 0.0-0.4 %) Lymphocytes Percent Auto 26.3 (Ref Range: 20-40 %) 27.4 (Ref Range: 20-40 %) 29.1 (Ref Range: 20-40 %) Monocytes Percent Auto 10.7 (Ref Range: 2-11 %) 10.2 (Ref Range: 2-11 %) 10.9 (Ref Range: 2-11 %) Eosinophils Percent Auto 5.7 H (Ref Range: 0-4 %) 4.4 H (Ref Range: 0-4 %) 4.9 H (Ref Range: 0-4 %) Basophils Percent Auto 0.9 (Ref Range: 0-2 %) 0.9 (Ref Range: 0-2 %) 0.9 (Ref Range: 0-2 %) NRBC Pct Auto 0.0 (Ref Range: 0.0-0.2 /100WBC) 0.0 (Ref Range: 0.0-0.2 /100WBC) 0.0 (Ref Range: 0.0-0.2 /100WBC) Neutrophils Absolute Auto 3.1 (Ref Range: 2.0-8.3 x10*3/uL) 4.0 (Ref Range: 2.0-8.3 x10*3/uL) 3.1 (Ref Range: 2.0-8.3 x10*3/uL) Imm Gran Abs Auto 0.02 (Ref Range: 0.00-0.03 X10*3/uL) 0.02 (Ref Range: 0.00-0.03 X10*3/uL) 0.02 (Ref Range: 0.00-0.03 X10*3/uL) Lymphocytes Absolute Auto 1.5 (Ref Range: 1.2-4.9 X10*3/uL) 1.9 (Ref Range: 1.2-4.9 X10*3/uL) 1.7 (Ref Range: 1.2-4.9 X10*3/uL) Monocytes Absolute Auto 0.6 (Ref Range: 0.1-1.2 X10*3/uL) 0.7 (Ref Range: 0.1-1.2 X10*3/uL) 0.6 (Ref Range: 0.1-1.2 X10*3/uL) Eosinophils Absolute Auto 0.3 (Ref Range: 0.0-0.4 X10*3/uL) 0.3 (Ref Range: 0.0-0.4 X10*3/uL) 0.3 (Ref Range: 0.0-0.4 X10*3/uL) Basophils Absolute Auto 0.1 (Ref Range: 0.0-0.2 X10*3/uL) 0.1 (Ref Range: 0.0-0.2 X10*3/uL) 0.1 (Ref Range: 0.0-0.2 X10*3/uL) NRBC Abs Auto 0.000 (Ref Range: 0.0-0.012 X10*3/uL) 0.000 (Ref Range: 0.0-0.012 X10*3/uL) 0.000 (Ref Range: 0.0-0.012 X10*3/uL) * Lab:Prince Chawla. Tere l Fast * Collection Date 09/17/2024 05/17/2024 01/12/2024 Collection Time 11:38 AM 10:59 AM 12:01 PM Order Date 09/17/2024 05/17/2024 01/12/2024 Sodium 142 (Ref Range: 135-145 mmol/L) 140 (Ref Range: 135-145 mmol/L) 139 (Ref Range: 135-145 mmol/L) Bilirubin Total 0.7 (Ref Range: 0.0-1.0 mg/dL) 0.7 (Ref Range: 0.0-1.0 mg/dL) 1.0 (Ref Range: 0.0-1.0 mg/dL) Aspartate Amino Transferase 27 (Ref Range: 5-37 U/L) 25 (Ref Range: 5-37 U/L) 29 (Ref Range: 5-37 U/L) Alanine Aminotransferase 32 (Ref Range: 0-40 U/L) 28 (Ref Range: 0-40 U/L) 32 (Ref Range: 0-40 U/L) Total Protein 7.1 (Ref Range: 6.5-8.0 g/dL) 7.1 (Ref Range: 6.5-8.0 g/dL) 7.4 (Ref Range: 6.5-8.0 g/dL) Albumin Level 4.4 (Ref Range: 3.5-5.0 g/dL) 3.8 (Ref Range: 3.5-5.0 g/dL) 4.2 (Ref Range: 3.5-5.0 g/dL) Alkaline Phosphatase 59 (Ref Range: 39-117 U/L) 60 (Ref Range: 39-117 U/L) 59 (Ref Range: 39-117 U/L) Potassium 4.3 (Ref Range: 3.3-5.1 mmol/L) 4.0 (Ref Range: 3.3-5.1 mmol/L) 4.6 (Ref Range: 3.3-5.1 mmol/L) Chloride 108 (Ref Range: 96-108 mmol/L) 110 H (Ref Range: 96-108 mmol/L) 107 (Ref Range: 96-108 mmol/L) Carbon Dioxide 27 (Ref Range: 22-29 mmol/L) 26 (Ref Range: 22-29 mmol/L) 26 (Ref Range: 22-29 mmol/L) Anion Gap 11 L (Ref Range: 12-20) 8 L (Ref Range: 12-20) 11 L (Ref Range: 12-20) Blood Urea Nitrogen 19 H (Ref Range: 9-16 mg/dL) 27 H (Ref Range: 9-16 mg/dL) 19 H (Ref Range: 9-16 mg/dL) Creatinine 1.35 (Ref Range: 0.5-1.4 mg/dL) 1.40 (Ref Range: 0.5-1.4 mg/dL) 1.21 (Ref Range: 0.5-1.4 mg/dL) Estimated Glomerular Filt Rate 52 50 59 Glucose Fasting 101 H (Ref Range: 60-99 mg/dL) 90 (Ref Range: 60-99 mg/dL) 99 (Ref Range: 60-99 mg/dL) Calcium 9.6 (Ref Range: 8.4-10.2 mg/dL) 9.0 (Ref Range: 8.4-10.2 mg/dL) 9.7 (Ref Range: 8.4-10.2 mg/dL) * Lab:Lipid Panel * Collection Date 09/17/2024 05/17/2024 01/12/2024 Collection Time 11:38 AM 10:59 AM 12:01 PM Order Date 09/17/2024 05/17/2024 01/12/2024 Triglycerides 101 (Ref Range: <150 mg/dL) 75 (Ref Range: <150 mg/dL) 94 (Ref Range: <150 mg/dL) Cholesterol 209 H (Ref Range: <200 mg/dL) 188 (Ref Range: <200 mg/dL) 204 H (Ref Range: <200 mg/dL) LDL Cholesterol Calculated 141 H (Ref Range: <100 mg/dL) 125 H (Ref Range: <100 mg/dL) 131 H (Ref Range: <100 mg/dL) HDL Cholesterol 48 (Ref Range: >40 mg/dL) 48 (Ref Range: >40 mg/dL) 55 (Ref Range: >40 mg/dL) * Lab:Prostate Specific Antige n * Collection Date 09/17/2024 11/15/2022 Collection Time 11:38 AM 01:57 PM Order Date 09/17/2024 11/15/2022 Prostate Specific Antigen 3.08 (Ref Range: <0.05-4.0 ng/mL) 1.05 (Ref Range: <0.05-4.0 ng/mL) * Examination: G eneral Examination: GENERAL [...] a lert, oriented. Assessment: * Assessment: 1. B PH (benign prostatic hypertrophy) - N40.0 (Primary) N otes :He has been rising from sleep once a night depending upon fluid intake. We discussed ways to alter his lifestyle so this would be improved. 2 . E ssential hypertension - I10 N otes :His blood pressure remains higher then we like. He was given an appointment in near future returned to the office to recheck it. If it remains at this level is treatment will be adjusted. 3 . H ypothyroidism - E03.9 N otes :He remains euthyroid and no change in his regimen as necessary. 4 . V itamin D deficiency, unspecified - E55.9 N otes :His vitamin D supplements were continued. 5 . H istory of depression - Z86.59 N otes :He hasBeen feeling much better while taking the bupropion. The dose was increased and he will continue on it. His depression is beginning to resolve. A follow-up visit was arranged. Plan: * Treatment: 2. E ssential hypertension L AB: PROFILE, FASTING (COMPREHENSIVE METABOLIC) L AB: TSH (THYROID STIMULATING HORMONE) L AB: PSA, TOTAL L AB: CBC w DIFF L AB: Lipid Panel L AB: Vitamin D 25-OH Total L AB: Free T4 (Free Thyroxine) 3. H ypothyroidism L AB: PROFILE, FASTING (COMPREHENSIVE METABOLIC) L AB: TSH (THYROID STIMULATING HORMONE) L AB: PSA, TOTAL L AB: CBC w DIFF L AB: Lipid Panel L AB: Vitamin D 25-OH Total L AB: Free T4 (Free Thyroxine) 4. V itamin D deficiency, unspecified L AB: PROFILE, FASTING (COMPREHENSIVE METABOLIC) L AB: TSH (THYROID STIMULATING HORMONE) L AB: PSA, TOTAL L AB: CBC w DIFF L AB: Lipid Panel L AB: Vitamin D 25-OH Total L AB: Free T4 (Free Thyroxine) 5. [...] day. * Procedure Codes: * Follow Up: A s Scheduled (Reason: Annual Exam) * Images: * Sign off status: Completed true * Provider: Christiano Carey MD Date: 0 09/20/2024 Generated for Olga Lidia rogers/Helen/Yohana on: 1 03/17/2024 01:26 PM EST History and Physical [...]
--- OUTSIDE RECORDS SUMMARY | 2025-01-15 05:44 | XMS_ITS ---
Author Organization Maury Carey III, MD Address [address] [place] [address] Care Team Providers Care Acid Blower Name Role Phone Dr. Maury Carey III Primary Care Provider REASON FOR VISIT Message Social History Sex Assigned At : Social History Observation Description Sex Assigned At Male Encounters Encounter Location Date Provider Diagnosis Maury Carey III, MD [address] [place] [address] [address] [facility] [place] [address] 01/15/2025 Maury Carey Plan Of Treatment Next Appt Details Provider Name:Maury Carey , 01/21/2025 03:00:00 PM, [address] [place] [address] [address], [place], [address], Progress Notes * SANKET ServandoBereOB:1955 (69 yo M)Acc No.[id number]:01/15/2025 Patient: Quique RUBIO :1955 A ge:69 Y S ex:Male [address] [place], [address] * true * Date: Generated for Printi ng/Faxing/eTransmitting on: 03/17/2024 01:26 PM EST
[2025-01-15 11:26] LABS: MANUAL DIFF FLAG NO
[2025-01-15 12:04] LABS: Hematocrit 41.8 % (42.0-52.0); Hemoglobin 13.9 g/dl (14.0-18.0); Imm Gran Abs Auto 0.02 X10*3/uL (0.00-0.03); Imm Gran Pct Auto 0.4 % (0.0-0.4); Lymphocytes Absolute Auto 1.5 X10*3/uL (1.2-4.9); Mean Corpuscular HGB Conc 33.3 g/dl (31.0-36.0); Mean Corpuscular Hemoglobin 30.7 pg (27.0-33.0); Mean Corpuscular Volume 92.3 fL (80.0-98.0); NRBC Abs Auto 0.000 X10*3/uL (0.0-0.012); NRBC Pct Auto 0.0 /100WBC (0.0-0.2); Platelet Count 207 X10*3/uL (160-400); Red Blood Count 4.53 X10*6/uL (4.60-5.80); White Blood Count 5.7 X10*3/uL (4.8-10.8)
[2025-01-15 12:47] LABS: Alanine Aminotransferase 31 U/L (0-40); Albumin Level 4.2 g/dL (3.5-5.0); Alkaline Phosphatase 57 U/L (39-117); Anion Gap 10 (12-20); Aspartate Amino Transferase 27 U/L (5-37); Blood Urea Nitrogen 24 mg/dL (9-16); Calcium 9.2 mg/dL (8.4-10.2); Carbon Dioxide 23 mmol/L (22-29); Chloride 111 mmol/L (96-108); Cholesterol 179 mg/dL (<200); Estimated Glomerular Filt Rate 51; HDL Cholesterol 48 mg/dL (>40); Potassium 3.9 mmol/L (3.3-5.1); Sodium 140 mmol/L (135-145); Total Protein 7.0 g/dL (6.5-8.0); Triglycerides 78 mg/dL (<150)
[2025-01-15 13:04] LABS: Free T4 (Free Thyroxine) 1.17 ng/dL (0.71-1.85); Thyroid Stimulating Hormone 1.64 uIU/mL (0.32-4.0)
[2025-01-15 13:06] LABS: Prostate Specific Antigen 2.38 ng/mL (<0.05-4.0)
--- OUTSIDE RECORDS SUMMARY | 2025-01-15 13:25 | XMS_ITS | Clinical Summary ---
Author Organization [facility] Address [address] [place] [address] Phone Care Team Providers Care Aspnet Developer Name Role Phone Maury Carey MD Primary Care Provider [phone] Allergies No known active allergies Medications tadalafil (CIALIS) 10 MG tablet Dose: 10 MG; Form: Take 1 TABLET; Route: PO; Frequency: QD PRN; Directions: Not available; Details: Dispense: 20 Tablet(s); Date: 06/22/2016 06/22/2016 Active metoprolol tartrate (LOPRESSOR) 25 MG tablet Dose: 12.5 MG; Form: Take 0.5 TABLET; Route: PO; Frequency: QD; Directions: dispense 3 months' supply; Details: Dispense: 45 Tablet(s); Date: 06/22/2016 06/22/2016 Active sildenafil (VIAGRA) 100 mg tablet Dose: 50 MG; Form: Take 0.5 TABLET; Route: PO; Frequency: QD; Directions: Not available; Details: Dispense: 20 Tablet(s); Date: 07/12/2016 07/12/2016 Active buPROPion (WELLBUTRIN SR) 150 MG SR 12 hr tablet Take 150 mg by mouth 2 (two) times a day. Active nortriptyline (PAMELOR) 25 MG capsule Take 25 mg by mouth. Active levothyroxine (SYNTHROID, LEVOTHROID) 50 MCG tablet Take 50 mcg by mouth every morning. Active tobramycin (TOBREX) 0.3 % ophthalmic solution Place 1 drop into the left eye every 4 (four) hours. 5 mL 11/24/2024 Active Active Problems No known active problems Encounters Date Type Department Care Team Description 11/24/2024 12:10 PM EDT Office Visit [facility] [address] [address] Ras Finley PA-C Blepharitis of left upper eyelid, unspecified type (Primary Dx) from Last 3 Months Social History Tobacco Use Types Packs/Day Years Used Date Smoking Tobacco: Never Assessed Education Answer Date Recorded Are you interested in more education? Not on michelle e 07/02/2022 Are you concerned about learning? Not on file 07/02/2022 No 07/02/2022 No 07/02/2022 Digital Access Answer Date Recorded No 08/02/2022 No 08/02/2022 No 08/02/2022 Reliable internet access at home? Not on file 08/02/2022 Device with a working camera? Not on file Sex and Gender Information Value Date Recorded Sex Assigned at Not on file Legal Sex Male 3:07 PM EST Gender Identity Not on file Sexual Orientation Not on file Last Filed Vital Signs Vital Sign Reading Time Taken Comments Blood Pressure 135/85 11/24/2024 11:42 AM EDT Pulse 65 11/24/2024 11:42 AM EDT Temperature 36.5 C (97.7 F) 11/24/2024 11:42 AM EDT Respiratory Rate 16 11/24/2024 11:42 AM EDT Oxygen Saturation 97% 11/24/2024 11:42 AM EDT Inhaled Oxygen Concentration - - Weight 74.8 kg (165 lb) 11/24/2024 11:42 AM EDT Height 177.8 cm (5' 10 ) 11/24/2024 11:42 AM EDT Body Mass Index 23.68 11/24/2024 11:42 AM EDT Plan of Treatment Health Maintenance Due Date Last Done Comments Adult Td,Tdap Booster 1955 DEPRESSION SCREENING 1966 SMOKING Hx and SMOKELESS TOB ACCO SCREENING 10/22/1967 HEPATITIS C SCREENING 1972 COLOGUARD 10/22/1999 COLONOSCOPY 10/22/1999 COLORECTAL CANCER SCREENING 10/22/1999 FIT TEST 10/22/1999 FOBT 10/22/1999 SIGMOIDOSCOPY 10/22/1999 VIRTUAL COLONOSCOPY 10/22/1999 PNEUMOCOCCAL VACCINES (50+ y ears) (1 of 1 - PCV) 2004 ZOSTER VACCINES (1 of 2) 2004 TSH LEVEL 06/22/2017 06/22/2016 LIPID PANEL 06/22/2021 06/22/2016 INFLUENZA VACCINE (#1) 2024 03/24/2022 COVID-19 VACCINE (2 - 2024-2 6 season) 2024 05/22/2020 RSV VACCINE (1 - 1-dose 75+ series) 2029 HEPATITIS A VACCINES Aged Out No long er eligible based on patient's age to complete this topic HIB VACCINES Aged Out No longer eligi ble based on patient's age to complete this topic MENINGOCOCCAL VACCINES (ACWY) Aged Out No longer eligible based on patient's age to complete this topic MENINGOCOCCAL VACCINES (B) Aged Out N o longer eligible based on patient's age to complete this topic Medical Devices Not on file Procedures Procedure Name Priority Date/Time Associated Diagnosis Comments LIPID PANEL Routine 06/22/2016 2:16 PM EDT THYROID STIMULATING HORMONE (TSH) Routine 06/22/2016 2:16 PM EDT from Last 3 Months or Most Recently Relevant to Health Maintenance Results * TSH (06/22/2016 2:16 PM EDT) Pathologist [facility] TSH 2.78 0.35 - 5.50 uIU/mL [facility] 06/22/2016 2:16 PM EDT 06/22/2016 2:16 PM EDT us Debora Wen MD LAB BLOOD BKR ORDERABLES Yenny l [place] [address] * (ABNORMAL) Lipid panel (06/22/2016 2:16 PM EDT) Cholesterol 193 <200 mg/dL [facility] Triglycerides 198(Abnor shell H) <150 mg/dL [facility] Cholesterol, HDL 43 >40 mg/dL [facility] LDLC 110 <129 mg/dL [facility] Cholesterol/HDL Ratio 4.49 <4.96 [facility] 06/22/2016 2:16 PM EDT 06/22/2016 2:16 PM EDT us Debora Wen MD LAB BLOOD BKR ORDERABLES [place] [address] from Last 3 Months or Most Recently Relevant to Health Maintenance Insurance MEDICARE PART A & B BLUE [place] MED[place] BLUE REPLACEMENT MEDICARE PART A & B Member Subscriber Plan / Payer (Ef fective 2019-Present) Name:Quique Vu Member ID:[id number] Relation to Subscriber:Self Name:Quique Vu Subscriber ID:[id number] Payer ID:[id number] Group ID:Not on file Type:Medicare Address: [email or web address] [address] MEDICARE PPO BLUE REPLACEMENT MEDICARE PART A & B Member Subscriber Plan / Payer (Ef fective 2019-Present) Name:Quique Vu Member ID:[id number] Relation to Subscriber:Self Name:Quique Vu Lefty Subscriber ID:[id number] Payer ID:[id number] Group ID:Not on file Type:Medicare Address: [email or web address] MEDICARE PPO BLUE REPLACEMENT MEDICARE PART A & B Member Subscriber Plan / Payer (Ef fective 2019-Present) Name:Quique Vu Member ID:[id number] Relation to Subscriber:Self Name:Quique Vu Subscriber ID:[id number] Payer ID:[id number] Group ID:Not on file Type:Medicare Address: [employer] [address] MEDICARE PPO BLUE REPLACEMENT MEDICARE PART A & B Member Subscriber Plan / Payer (Ef fective 2019-Present) Name:Quique Vu Member ID:[id number] Relation to Subscriber:Self Name:Quique Vu Subscriber ID:[id number] Payer ID:[id number] Group ID:Not on file Type:Medicare Address: [employer] [address] MEDICARE PPO BLUE REPLACEMENT MEDICARE PART A & B [place] BLUE REPLACEMENT Care Teams Aspnet Developer Relationship Specialty Start Date End Date Maury Carey MD [address] [place] [address] [place] [address] PCP - General 01/24/24 Additional Source Comments The information contained in this document represents components of the legal health record. It is not the complete legal health record.[facility]
--- OUTSIDE RECORDS SUMMARY | 2025-01-15 13:26 | XMS_ITS | Patient Health Record ---
Author Organization Maury Carey III, MD Address [address] [place] [address] Care Team Providers Care Project Estimator Name Role Phone Dr. Maury Carey III Primary Care Provider Allergies Allergen (clinical drug ingredient) Drug/Non Drug Allergy documented on EMR Reaction Allergy Type Onset Date Status No Known Drug Allergy Unknown Drug Allergy Active Seasonale Unknown Drug Allergy Active Results Component Value Reference Range Notes Complete Blood Count Auto Di ff Reviewed date:05/20/2024 09:38:09 AM Interpretation: Performing Lab:[facility], [address] [place] [phone] Notes/Report: White Blood Count 7.0 4.8-10.8 X10*3/uL [...] NRBC Abs Auto 0.000 0.0-0.012 X10*3/uL Comprehensive [place]. Panel Fa st Reviewed date:05/20/2024 09:38:09 AM Interpretation: Performing Lab:[facility], [address] [place] [phone] Notes/Report: Sodium 140 135-145 mmol/L Potassium 4.0 [...] Alkaline Phosphatase 60 39-117 U/L Lipid Panel Reviewed date:05/20/2024 09:38:09 AM Interpretation: Performing Lab:[facility], [address] [place] [phone] Notes/Report: Triglycerides 75 <150 mg/dL Desirable Triglyceride: [...] liver disease. Free T4 (Free Thyroxine) Reviewed date:05/20/2024 09:38:09 AM Interpretation: Performing Lab:[facility], [address] [place] [phone] Notes/Report: Free T4 (Free Thyroxine) 1.08 0.71-1.85 ng/dL Thyroid Stimulating Hormone Reviewed date:05/20/2024 09:38:09 AM Interpretation: Performing Lab:[facility], [address] [place] [phone] Notes/Report: Thyroid Stimulating Hormone 2.32 0.32-4.0 uIU/ mL TSH 3rd Generation ([employer]) Complete Blood Count Auto Di ff Reviewed date:09/18/2024 08:12:50 PM Interpretation: Performing Lab:[facility], [address] [place] [phone] Notes/Report: White Blood Count 5.6 4.8-10.8 X10*3/uL Red Blood Count 4.67 4.60-5.80 X10*6/uL Hemoglobin 14.1 14.0-18.0 g/dl Hematocrit 42.8 42.0-52.0 % Mean Corpuscular Volume 91.6 80.0-98.0 fL Mean Corpuscular Hemoglobin 30.2 27.0-33.0 pg Mean Corpuscular HGB Conc 32.9 31.0-36.0 g/dl Red Cell Distribution Width 13.6 11.0-16.0 % Platelet Count 217 160-400 X10*3/uL Mean Platelet Volume 10.5 9.4-12.4 fL Neutrophils Percent Auto 56.0 45-73 % Imm Gran Pct Auto 0.4 0.0-0.4 % Lymphocytes Percent Auto 26.3 20-40 % Monocytes Percent Auto 10.7 2-11 % Eosinophils Percent Auto 5.7 0-4 % Basophils Percent Auto 0.9 0-2 % NRBC Pct Auto 0.0 0.0-0.2 /100WBC Neutrophils Absolute Auto 3.1 2.0-8.3 x10*3/u L Imm Gran Abs Auto 0.02 0.00-0.03 X10*3/uL Lymphocytes Absolute Auto 1.5 1.2-4.9 X10*3/u L Monocytes Absolute Auto 0.6 0.1-1.2 X10*3/uL Eosinophils Absolute Auto 0.3 0.0-0.4 X10*3/u L Basophils Absolute Auto 0.1 0.0-0.2 X10*3/uL NRBC Abs Auto 0.000 0.0-0.012 X10*3/uL Comprehensive [place]. Panel Fa st Reviewed date:09/18/2024 08:12:50 PM Interpretation: Performing Lab:[facility], [address] [place] [phone] Notes/Report: Sodium 142 135-145 mmol/L Potassium 4.3 3.3-5.1 mmol/L Chloride 108 96-108 mmol/L Carbon Dioxide 27 22-29 mmol/L Anion Gap 11 12-20 Blood Urea Nitrogen 19 9-16 mg/dL Creatinine 1.35 0.5-1.4 mg/dL Estimated Glomerular Filt Rate 52 Chronic Kidney Disease: Estimated GFR < 60 mL/min/1.73m2 Severe Kidney Disease: Estimated GFR < 15 mL/min/1.73m2 Glucose Fasting 101 60-99 mg/dL A fasting glucose from 100-125 mg/dl is considered impaired (pre-diabetes). Calcium 9.6 8.4-10.2 mg/dL Bilirubin Total 0.7 0.0-1.0 mg/dL Aspartate Amino Transferase 27 5-37 U/L Alanine Aminotransferase 32 0-40 U/L Total Protein 7.1 6.5-8.0 g/dL Albumin Level 4.4 3.5-5.0 g/dL Alkaline Phosphatase 59 39-117 U/L Lipid Panel Reviewed date:09/18/2024 08:12:50 PM Interpretation: Performing Lab:[facility], [address] [place] [phone] Notes/Report: Triglycerides 101 <150 mg/dL Desirable Triglyceride: less than 150 mg/dL Borderline High Triglyceride 150-199 mg/dL High Triglyceride: 200-499 mg/dL Very High Triglyceride: greater than or equal to 5OO mg/dL Cholesterol 209 <200 mg/dL Desirable Cholesterol: less than 200 mg/dL Borderline High Cholesterol: 200-239 mg/dL High Cholesterol: greater than 239 mg/dL LDL Cholesterol Calculated 141 <100 mg/dL Desirable LDL: less than 100 mg/dL Near Optimal/Above Optimal LDL: 110-129 mg/dL Borderline High LDL: 130-159 mg/dL High LDL: 160-189 mg/dL Very High LDL: greater than or equal to 190 mg/dL HDL Cholesterol 48 >40 mg/dL Desirable HDL: greater than 40 mg/dL Note: This HDL assay may give artificially low results in patients with liver disease. Prostate Specific Antigen Reviewed date:09/18/2024 08:12:50 PM Interpretation: Performing Lab:[facility], [address] [place] [phone] Notes/Report: Prostate Specific Antigen 3.08 <0.05-4.0 ng/mL PSA methodology: [employer] Chemiluminescent Microparticle Immunoassay (CM[employer]) Free T4 (Free Thyroxine) Reviewed date:09/18/2024 08:12:50 PM Interpretation: Performing Lab:[facility], [address] [place] [phone] Notes/Report: Free T4 (Free Thyroxine) 1.12 0.71-1.85 ng/dL Thyroid Stimulating Hormone Reviewed date:09/18/2024 08:12:50 PM Interpretation: Performing Lab:[facility], [address] [place] [phone] Notes/Report: Thyroid Stimulating Hormone 2.09 0.32-4.0 uIU/ mL TSH 3rd Generation ([facility] [employer]) Complete Blood Count Auto Di ff (Not yet reviewed by provider) Interpretation: Performing Lab:[facility], [address] [place] [phone] Notes/Report: White Blood Count 5.7 4.8-10.8 X10*3/uL Red Blood Count 4.53 4.60-5.80 X10*6/uL Hemoglobin 13.9 14.0-18.0 g/dl Hematocrit 41.8 42.0-52.0 % Mean Corpuscular Volume 92.3 80.0-98.0 fL Mean Corpuscular Hemoglobin 30.7 27.0-33.0 pg Mean Corpuscular HGB Conc 33.3 31.0-36.0 g/dl Red Cell Distribution Width 13.5 11.0-16.0 % Platelet Count 207 160-400 X10*3/uL Mean Platelet Volume 10.1 9.4-12.4 fL Neutrophils Percent Auto 55.8 45-73 % Imm Gran Pct Auto 0.4 0.0-0.4 % Lymphocytes Percent Auto 26.9 20-40 % Monocytes Percent Auto 9.9 2-11 % Eosinophils Percent Auto 5.8 0-4 % Basophils Percent Auto 1.2 0-2 % NRBC Pct Auto 0.0 0.0-0.2 /100WBC Neutrophils Absolute Auto 3.2 2.0-8.3 x10*3/u L Imm Gran Abs Auto 0.02 0.00-0.03 X10*3/uL Lymphocytes Absolute Auto 1.5 1.2-4.9 X10*3/u L Monocytes Absolute Auto 0.6 0.1-1.2 X10*3/uL Eosinophils Absolute Auto 0.3 0.0-0.4 X10*3/u L Basophils Absolute Auto 0.1 0.0-0.2 X10*3/uL NRBC Abs Auto 0.000 0.0-0.012 X10*3/uL Comprehensive [place]. Panel Fa st (Not yet reviewed by provider) Interpretation: Performing Lab:[facility], [address] [place] [address], [place] [address] Notes/Report: Sodium 140 135-145 mmol/L Potassium 3.9 3.3-5.1 mmol/L Chloride 111 96-108 mmol/L Carbon Dioxide 23 22-29 mmol/L Anion Gap 10 12-20 Blood Urea Nitrogen 24 9-16 mg/dL Creatinine 1.39 0.5-1.4 mg/dL Estimated Glomerular Filt Rate 51 Chronic Kidney Disease: Estimated GFR < 60 mL/min/1.73m2 Severe Kidney Disease: Estimated GFR < 15 mL/min/1.73m2 Glucose Fasting 98 60-99 mg/dL Calcium 9.2 8.4-10.2 mg/dL Bilirubin Total 0.7 0.0-1.0 mg/dL Aspartate Amino Transferase 27 5-37 U/L Alanine Aminotransferase 31 0-40 U/L Total Protein 7.0 6.5-8.0 g/dL Albumin Level 4.2 3.5-5.0 g/dL Alkaline Phosphatase 57 39-117 U/L Lipid Panel (Not yet reviewe d by provider) Interpretation: Performing Lab:[address] [phone] Notes/Report: Triglycerides 78 <150 mg/dL Desirable Triglyceride: less than 150 mg/dL Borderline High Triglyceride 150-199 mg/dL High Triglyceride: 200-499 mg/dL Very High Triglyceride: greater than or equal to 5OO mg/dL Cholesterol 179 <200 mg/dL Desirable Cholesterol: less than 200 mg/dL Borderline High Cholesterol: 200-239 mg/dL High Cholesterol: greater than 239 mg/dL LDL Cholesterol Calculated 116 <100 mg/dL Desirable LDL: less than 100 mg/dL Near Optimal/Above Optimal LDL: 110-129 mg/dL Borderline High LDL: 130-159 mg/dL High LDL: 160-189 mg/dL Very High LDL: greater than or equal to 190 mg/dL HDL Cholesterol 48 >40 mg/dL Desirable HDL: greater than 40 mg/dL Note: This HDL assay may give artificially low results in patients with liver disease. Prostate Specific Antigen (N ot yet reviewed by provider) Interpretation: Performing Lab:[facility], [address] [place] [phone] Notes/Report: Prostate Specific Antigen 2.38 <0.05-4.0 ng/mL PSA methodology: [employer] i Chemiluminescent Microparticle Immunoassay (CMIA) Vitamin D 25-OH Total (Not y et reviewed by provider) Interpretation: Performing Lab:[facility], [address] [place] [phone] Notes/Report: Vitamin D 25-OH Total 50.4 >30 ng/mL Health Based Reference Values* < 20 ng/mL Deficient 20-30 ng/mL Insufficient > 30 ng/mL Sufficient *Fabienne ORTIZ. N Engl J Med. 2007;357:266-280 There is no well-established upper level of normal vitamin D levels. Some laboratories use 50 ng/mL as an upper limit of normal. However, toxicity is patient-dependent and may occur at any level. Careful correlation with the patient's presentation is necessary and, if there is concern for vitamin D toxicity, treatment should be considered irrespective of the serum level. Care must be taken in interpreting Vitamin [...] confirmed with another method such as LC-MS/MS. Free T4 (Free Thyroxine) (No t yet reviewed by provider) Interpretation: Performing Lab:[address] [phone] Notes/Report: Free T4 (Free Thyroxine) 1.17 0.71-1.85 ng/dL Thyroid Stimulating Hormone (Not yet reviewed by provider) Interpretation: Performing Lab:[address] [address] Notes/Report: Thyroid Stimulating Hormone 1.64 0.32-4.0 uIU/ mL TSH 3rd Generation ([facility] [...] needed Orally Once a day 09/05/2023 Active Zinc 100 MG 1 tablet Orally Once a day Active Vitamin C 1000 MG 1 tablet Orally Once a day Active Immunizations Vaccine Route Administration Date Status [...] Status W/U Status Risk Notes Problem Hypothyroidism (55489794) Hypothyroidism (E03.9) Active confirmed He remains euthyroid and no change in his regimen as necessary. Problem Vitamin D deficiency (20525355) Vitamin D deficiency, unspecified (E55.9) Active confirmed His vitamin D supplements were continued. Problem 20225343 Balanitis (N48.1) Active confirmed This has completely resolved Problem Dermatitis (639270204) Dermatitis (L30.9) Active confirmed No significant cutaneous lesions were present today. Problem Benign prostatic hypertrophy without outflow obstruction (891013065) BPH (benign prostatic hypertrophy) (N40.0) Active confirmed He has been rising from sleep once a night depending upon fluid intake. We discussed ways to alter his lifestyle so this would be improved. Problem Essential hypertension (80370199) Essential hypertension (I10) Active confirmed His blood pressure remains higher then we like. He was given an appointment in near future returned to the office to recheck it. If it remains at this level is treatment will be adjusted. Problem History of depression (596079363) History of depression (Z86.59) Active confirmed He hasBeen feeling much better while taking the bupropion. The dose was increased and he will continue on it. His depression is beginning to resolve. A follow-up visit was arranged. Vital Signs Heart Rate 65 /min 09/20/2024 Temperature 97.2 degrees Fahrenheit 09/20/2024 Blood pressure diastolic 79 mm Hg 09/20/2024 Height 70 in 09/20/2024 Blood pressure systolic 140 mm Hg 09/20/2024 Weight 168 lbs 09/20/2024 BMI 24.1 kg/m2 09/20/2024 Encounters Encounter Location Date Provider Diagnosis Maury Carey III, MD [address] [place] [address] [place] [address] 01/17/2024 Maury Carey Hypothyroidism E03.9 ; Essential hypertension I10 ; History of depression Z86.59 ; Vitamin D deficiency, unspecified E55.9 ; BPH (benign prostatic hypertrophy) N40.0 and Balanitis N48.1 Maury Carey III, MD [address] [place] [address] [place] [phone] 05/21/2024 Maury Carey Essential hypertensi on I10 ; Hypothyroidism E03.9 ; Vitamin D deficiency, unspecified E55.9 and BPH (benign prostatic hypertrophy) N40.0 Maury Carey III, MD [address] [place] [address] [place] [phone] 09/20/2024 Maury Carey Essential hypertensi on I10 ; BPH (benign prostatic hypertrophy) N40.0 ; Hypothyroidism E03.9 ; Vitamin D deficiency, unspecified E55.9 and History of depression Z86.59 Maury Carey III, MD [address] [place] [address] [place] [address] 01/15/2025 Maury Carey Assessments Encounter Date Diagnosis (ICD Code) Assessment Notes Treat ment Notes Treatment Clinical Notes 01/17/2024 Hypothyroidism (ICD-10 - E03.9) His thyroid function tests are within normal limits. No changes to his medications was necessary. 01/17/2024 Essential hypertension (ICD-10 - I10) His blood pressure remains well controlled and no change in his regimen was needed. 05/21/2024 Hypothyroidism (ICD-10 - E03.9) He has been compliant with his medications. His thyroid function tests are within normal range. No change in his regimen as needed. 05/21/2024 Essential hypertension (ICD-10 - I10) His blood pressure is currently stable and no change in his regimen was made. 09/20/2024 BPH (benign prostati c hypertrophy) (ICD-10 - N40.0) He has been rising from sleep once a night depending upon fluid intake. We discussed ways to alter his lifestyle so this would be improved. 09/20/2024 Essential hypertension (ICD-10 - I10) His blood pressure remains higher then we like. He was given an appointment in near future returned to the office to recheck it. If it remains at this level is treatment will be adjusted. 01/17/2024 History of depressio n (ICD-10 - Z86.59) He hasBeen feeling much better while taking the bupropion. The dose was increased and he will continue on it. His depression is beginning to resolve. A follow-up visit was arranged. 05/21/2024 Vitamin D deficiency , unspecified (ICD-10 - E55.9) He has continued on his vitamin D supplementation. 09/20/2024 Hypothyroidism (ICD-10 - E03.9) He remains euthyroid and no change in his regimen as necessary. 01/17/2024 Vitamin D deficiency , unspecified (ICD-10 - E55.9) He will continue on vitamin D. 05/21/2024 BPH (benign prostati c hypertrophy) (ICD-10 - N40.0) We have discussed lifestyle modifications that he could make to reduce nocturia. He admits to once a night. 09/20/2024 Vitamin D deficiency , unspecified (ICD-10 - E55.9) His vitamin D supplements were continued. 01/17/2024 BPH (benign prostati c hypertrophy) (ICD-10 - N40.0) He arises from sleep once or twice a night to urinate. No change in his regimen is needed. We discussed lifestyle modification as a way to to reduceNocturia. 09/20/2024 History of depressio n (ICD-10 - Z86.59) He hasBeen feeling much better while taking the bupropion. The dose was increased and he will continue on it. His depression is beginning to resolve. A follow-up visit was arranged. 01/17/2024 Balanitis (ICD-10 - N48.1) This has completely resolved Plan Of Treatment Pending Test Test Name Order Date PROFILE, FASTING (COMPREHENSIVE METABOLI C) 05/21/2024 PROFILE, FASTING (COMPREHENSIVE METABOLI C) 12/12/2019 PROFILE, FASTING (COMPREHENSIVE METABOLI C) 01/17/2024 PROFILE, FASTING (COMPREHENSIVE METABOLI C) 01/11/2023 PROFILE, FASTING (COMPREHENSIVE METABOLI C) 07/27/2023 PROFILE, FASTING (COMPREHENSIVE METABOLI C) 09/20/2024 PROFILE, FASTING (COMPREHENSIVE METABOLI C) 08/18/2022 PROFILE, FASTING (COMPREHENSIVE METABOLI C) 08/15/2020 PROFILE, RANDOM (COMPREHENSIVE METABOLIC ) 05/24/2023 MAGNESIUM 12/12/2019 LIPID PANEL 01/17/2020 LIPID PANEL 12/12/2019 LIPID PANEL 08/18/2022 T4 (THYROXINE) 11/15/2022 FREE T4 (FT4) 01/17/2020 FREE T4 (FT4) 05/24/2023 FREE T4 (FT4) 08/15/2020 TSH (THYROID STIMULATING HORMONE) 2020 TSH (THYROID STIMULATING HORMONE) 2022 TSH (THYROID STIMULATING HORMONE) 2024 TSH (THYROID STIMULATING HORMONE) 2023 TSH (THYROID STIMULATING HORMONE) 2022 TSH (THYROID STIMULATING HORMONE) 2023 TSH (THYROID STIMULATING HORMONE) 2024 TSH (THYROID STIMULATING HORMONE) 2019 TSH (THYROID STIMULATING HORMONE) 2023 IRON + IBC (FE) 11/15/2022 FERRITIN 11/15/2022 PSA, TOTAL 01/17/2020 PSA, TOTAL 05/21/2024 PSA, TOTAL 01/11/2023 PSA, TOTAL 09/20/2024 PSA, TOTAL 12/12/2019 PSA, TOTAL 08/18/2022 PSA, TOTAL+FREE 01/17/2020 CBC w DIFF 08/15/2020 CBC w DIFF 05/21/2024 CBC w DIFF 09/20/2024 CBC w DIFF 11/15/2022 CBC w DIFF 12/12/2019 CBC w DIFF 08/18/2022 TESTOSTERONE, TOTAL 12/12/2019 TESTOSTERONE, TOTAL 01/17/2020 US CAROTID BILATERAL DOPPLER 12/12/2019 VITAMIN D 25-OH TOTAL 11/15/2022 CBC WITH AUTO DIFF 05/24/2023 CBC WITH AUTO DIFF 01/17/2024 CBC WITH AUTO DIFF 07/27/2023 CBC WITH AUTO DIFF 01/11/2023 Complete Blood Count Auto Diff Comprehensive [place]. Panel Fast Lipid Panel 01/11/2023 Lipid Panel 01/15/2025 Lipid Panel 09/20/2024 Lipid Panel 01/17/2024 Lipid Panel 07/27/2023 Lipid Panel 05/21/2024 Prostate Specific Antigen 01/15/2025 Vitamin D 25-OH Total 01/11/2023 Vitamin D 25-OH Total 09/20/2024 Vitamin D 25-OH Total 01/15/2025 Free T4 (Free Thyroxine) 01/17/2024 Free T4 (Free Thyroxine) 07/27/2023 Free T4 (Free Thyroxine) 05/21/2024 Free T4 (Free Thyroxine) 01/11/2023 Free T4 (Free Thyroxine) 09/20/2024 Free T4 (Free Thyroxine) 01/15/2025 Thyroid Stimulating Hormone 01/15/2025 Next Appt Details Provider Name:Maury Grijalvane , 01/21/2025 03:00:00 PM, [address] [place] [address] [address], [address], [place], [address], Insurance Providers Payer Name Payer Address Payer Phone Subscriber Number Group Number Insured Name Patient Relationship to Insured Coverage Start Date Coverage End Date [facility] [address] [place], [place] [id number] Quique Rincon Self - patient is the insured MEDICARE NGS [address] [place] [address] [id number] Quique Rincon Self - patient is the insured Medical (General) History Medical History History ICD Code HTN (hypertension) I10 depression maternal history of breast cancer cold weather dermatitis Surgical History Surgery Date(Month/Year) Tonsilectomy
--- OUTSIDE RECORDS SUMMARY | 2025-01-15 13:26 | XMS_ITS | Clinical Summary ---
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
--- OUTSIDE RECORDS SUMMARY | 2025-01-15 13:27 | XMS_ITS | Data Portability ---
Author Organization [place] [facility] [employer] Address [address] [place] [address] Assessment Encounter Date Assessment Date Assessment LastModified [...] Time Details Appointments Dermatolo gy CSE 15 2025 09:00A OMAYRA JHAVERI Not available Not available Not available Lab None recorded. Referral None recorded. Procedures None recorded. Surgeries None recorded. Imaging None recorded. Medication Orders None recorded. Patient TargetsNo targets recorded. Patient InstructionsNo instructions recorded. Reason for Referral None Reported. Problems Name Problem SNOMED Code Status Onset Date Resolution Date Notes Provider Name and Address Organization Details Recorded Time Mild depression 982312429 Active 2024 Camelia Tracy [address] [facility], [facility] [address], [place], [address] , [facility] 11:02:19 Primary hypothyroidism 63746706 Active 2024 Camelia Tracy [address] [place] [address] [address], [facility] [place], [address], [facility] - [facility] 11:02:34 Problem Notes None recorded. Procedures Surgical History Date Name Laterality Status Provider Name and Address Organization Details Recorded Time Cryosurgery completed OMAYRA TUBBS [address] [place] [address], [place], [address], [facility] 09/17/2024 12:58:32 Imaging Results None recorded. Procedure Notes None recorded. Medical Equipment None Reported. [...] Diagnosis SNOMED-CT Code Diagnosis ICD10 Code Diagnosis IMO Codes Diagnosis Note [id number] OMAYRA TUBBS Main Office [address] [place] [address] [address] [place] [address] 08/16/2024 10:58:28 08/16/2024 11:19:53 Inflamed seborrheic keratosis 741601136 L82.0 72180 Seborrheic keratosis 394 704530 L82.1 51067 Solar lentigo 58772417 L 81.4 1102 Melanocyti c nevus of trunk 368448345 D22.5 746471 [id number] OMAYRA TUBBS Main Office [address] [place] [address],[facility] [address] [place] [address] 09/17/2024 12:45:05 09/17/2024 13:02:04 Inflamed seborrheic keratosis 954789491 L82.0 19990 Health Concerns Section Related Observation LastModified by Organization Detai ls LastModified Time None Recorded Concern Status LastModified by Organization Details LastModified Time None Recorded Advance Directives Directive None Recorded Payers Insurance Date Sequence Insurance Name Policy Number Policy Meyers Covered Member ID Meyers Member ID Guarantor Name 09/14/2024 1 [place]MEDICARE [place]PLACEMENT PPO) [id number] Quique Vu [id number] Quique Vu 08/16/2024 2 [place] [employer] Quique Vu [id number] Quique Vu Notes Date Note Type Note Provider Name and Address Organization Details Recorded Time 08/16/2024 text/html ROS as noted in the HPI New patient presents today for a full [...] stuck-on spots on the skin.- Lived in [place] for 22 years, aware of sun exposure but informed that seborrheic keratosis is genetic.- No recent full skin exam; primary care physician has checked skin in the past.- Uses two skin creams for spots similar to athlete's foot, which have been present for the last year.- Reports having skin tags, which are not a concern. OMAYRA TUBBS [address] [place] [address], [phone], [place] [facility] 08/16/2024 12:00:13 09/17/2024 text/html Patient here for ln2 treatment of irritated lesions on his back. OMAYRA TUBBS [address] [place] [address], [address], [place] [facility] 09/17/2024 12:58:58
== END 2025-01-15 11:15 | disposition home or self-care (01) ==
LOC: HO.LAB 11:14
PROVIDERS: PCP Internal Medicine Medical Oncology; Visit Provider Internal Medicine Medical Oncology
DX: Z12.5 Encounter for screening for malignant neoplasm of prostate (principal); N40.0 Benign prostatic hyperplasia without lower urinary tract symptoms; I10 Essential (primary) hypertension; E03.9 Hypothyroidism, unspecified; E55.9 Vitamin D deficiency, unspecified
CPT/HCPCS: 36415; 80053; 80061; 82306; 84153; 84439; 84443; 85025

== ENCOUNTER 2025-01-28 13:53 | Outpatient (REF) | payer MEDICARE, SELFPAY ==
--- NOTE | ~2025-01-28 | XR_ITS ---
EXAMINATION: XR CHEST CLINICAL INFORMATION: ACUTE COUDH,FATIGUE COMPARISON: None available. TECHNIQUE: 2 views of the chest were obtained. FINDINGS: The cardiomediastinal silhouette is within normal limits. The lungs are well expanded. Streaky patchy opacities in the right lower lung. No pleural effusion. No pneumothorax.. No pneumothorax. Thoracic spine spondylosis.. XR/XR chest 2V IMPRESSION: Right lower lung streaky patchy opacities concerning for infiltrates. Recommendation is for a follow-up chest series to be obtained following treatment and/or resolution of symptoms to assure resolution of this appearance. Electronically signed by: Myke Dao MD 01/28/2025 02:26 PM [facility]
--- OUTSIDE RECORDS SUMMARY | 2025-01-28 18:49 | XMS_ITS | Clinical Summary ---
Author Organization [facility] Address [address] [place] [address] Care Team Providers Care Paper Bundler Name Role Phone Unavailable Primary Care Provider [...]
--- OUTSIDE RECORDS SUMMARY | 2025-01-28 18:49 | XMS_ITS | Clinical Summary ---
Author Organization [facility] Address [address] [place] [address] Phone Care Team Providers Care Freedom Of Information Officer Name Role Phone Maury Carey MD Primary Care Provider [phone] Allergies No known active allergies Medications tadalafil [...] Office Visit [facility] at [address] [address] Ras Finley PA-C Blepharitis of left upper [...] * TSH (06/22/2016 2:16 PM EDT) Pathologist [facility] TSH 2.78 0.35 - 5.50 uIU/mL [facility] 06/22/2016 2:16 PM EDT 06/22/2016 2:16 PM EDT us Debora Wen MD LAB BLOOD BKR ORDERABLES [place] [address] * (ABNORMAL) Lipid panel (06/22/2016 2:16 PM EDT) Cholesterol 193 <200 mg/dL [facility] Triglycerides 198(Abnor shell H) <150 mg/dL [facility] Cholesterol, HDL 43 >40 mg/dL [facility] LDLC 110 <129 mg/dL [facility] Cholesterol/HDL Ratio 4.49 <4.96 [facility] 06/22/2016 2:16 PM EDT 06/22/2016 2:16 PM EDT us Debora Wen MD LAB BLOOD BKR ORDERABLES [place] [address] from Last 3 Months or Most Recently Relevant to Health Maintenance Insurance MEDICARE PART A & B [place] MED[place] P[place] BLUE REPLACEMENT MEDICARE PART A & B Member Subscriber Plan / Payer (Ef fective 2019-Present) Name:Quique Vu Member ID:[id number] Relation to Subscriber:Self Name:Quique Vu Subscriber ID:[id number] Payer ID:[id number] Group ID:Not on file Type:Medicare Address: [employer] [address] MEDICARE PPO BLUE REPLACEMENT MEDICARE PART A & B Member Subscriber Plan / Payer (Ef fective 2019-Present) Name:Quique Vu Member ID:[id number] Relation to Subscriber:Self Name:Quique Vu Lefty Subscriber ID:[id number] Payer ID:[id number] Group ID:Not on file Type:Medicare Address: [facility] MEDICARE PPO BLUE REPLACEMENT MEDICARE PART A & B Member Subscriber Plan / Payer (Ef fective 2019-Present) Name:Quique Vu Member ID:[id number] Relation to Subscriber:Self Name:Quique Vu Subscriber ID:[id number] Payer ID:[id number] Group ID:Not on file Type:Medicare Address: [employer] [address] MEDICARE PPO BLUE REPLACEMENT MEDICARE PART A & B Member Subscriber Plan / Payer (Ef fective 2019-Present) Name:Quique Vu Member ID:[id number] Relation to Subscriber:Self Name:Quique Vu Subscriber ID:[id number] Payer ID:[id number] Group ID:Not on file Type:Medicare Address: [employer] [address] MEDICARE PPO BLUE REPLACEMENT MEDICARE PART A & B [place] BLUE REPLACEMENT Care Teams Freedom Of Information Officer Relationship Specialty Start Date End Date Maury Carey MD [address] [place] [address] [place] [address] PCP - General 01/24/24 Additional Source Comments The information contained in this document represents components of the legal health record. It is not the complete legal health record.[facility]
== END 2025-01-28 13:54 | disposition home or self-care (01) ==
LOC: HO.XRAY 13:53
PROVIDERS: PCP Internal Medicine Medical Oncology; Visit Provider Internal Medicine Medical Oncology
DX: R05.1 Acute cough (principal); R53.83 Other fatigue
CPT/HCPCS: 71046

== ENCOUNTER → 2025-01-28 14:01 | Outpatient (BNV) | payer MEDICARE, SELFPAY | PROVIDERS: PCP Internal Medicine Medical Oncology; Visit Provider Radiology Diagnostic Ultrasound | DX: R91.8 Other nonspecific abnormal finding of lung field (principal) | CPT/HCPCS: 71046 ==

== ENCOUNTER 2025-02-09 07:34 | Emergency (ER) | payer MEDICARE, SELFPAY ==
--- NOTE | ~2025-02-09 | CT_ITS ---
CLINICAL HISTORY: ? pneumonia CT chest without contrast Comparison: CR/SR - XR CHEST 2 VIEWS - 01/28/25 14:17 EST Findings: The heart size is normal. The visualized thyroid and mediastinum are unremarkable. The lungs are clear. The upper abdomen is unremarkable. No acute fractures. IMPRESSION: 1. Unremarkable chest CT. This document has been electronically signed by: Heron Tao MD on 02/09/2025 09:20:49
[2025-02-09 07:38] VITALS: BP 139/69; PULSE 85; RESP 18; TEMP 36.6; O2SAT 95; BMI 24.4
--- NOTE | 2025-02-09 07:48 | PC.NURSE ---
Patient presents to the ED with generalized weakness, fatigue and congestion for 3 weeks. Reports being too fatigued to go to work. Patient believes he has lost 5 pounds in the span of 3 weeks. Completed PO antibiotic course after CXR was done here last week. Denies any chest pain. Noted to have congestion with mild cough. VSS. Resting in bed.
--- OUTSIDE RECORDS SUMMARY | 2025-02-09 07:59 | XMS_ITS | Data Portability ---
Author Organization [place] [facility], [employer] Address [address] [place] [address] Assessment Encounter Date Assessment Date Assessment LastModified [...] Address Organization Details Recorded Time Mild depression [id number] Active 2024 Camelia Tracy [address] [facility], [facility] [address], [place], [address] , [facility] 11:02:19 Primary hypothyroidism 03958959 Active 2024 Camelia Tracy [address] [place] [address] [address], [place], [address], [facility] Primary 11:02:34 Problem Notes None recorded. Procedures Surgical History Date Name Laterality Status Provider Name and Address Organization Details Recorded Time Cryosurgery completed OMAYRA TUBBS [address] [place] [address], [place], [address], [facility] 09/17/2024 12:58:32 Imaging Results None recorded. Procedure [...] ICD10 Code Diagnosis IMO Codes Diagnosis Note [id number] OMAYRA TUBBS [address] [place] [address] 08/16/2024 10:58:28 08/16/2024 11:19:53 Inflamed seborrheic keratosis 256941283 L82.0 31393 Seborrheic keratosis 394 371988 L82.1 12461 Solar lentigo 29325778 L 81.4 1102 Melanocyti c nevus of trunk [id number] D22.5 [id number] OMAYRA TUBBS [address],[facility] [address] [place] [address] 09/17/2024 12:45:05 09/17/2024 13:02:04 Inflamed seborrheic keratosis 037645739 L82.0 31602 Health Concerns Section Related Observation LastModified by Organization Detai ls LastModified Time None Recorded Concern Status LastModified by Organization Details LastModified Time None Recorded Advance Directives Directive None Recorded Payers Insurance Date Sequence Insurance Name Policy Number Policy Meyers Covered Member ID Meyers Member ID Guarantor Name 09/14/2024 1 [place] (MEDICARE [place]PLACEMENT PPO) [id number] Quique Vu [id number] Quique Vu 08/16/2024 2 [place] [employer] Quique Vu [id number] Quique Vu Notes Date Note Type [...] stuck-on spots on the skin.- Lived in [place] for 22 years, aware of sun exposure but informed that seborrheic keratosis is genetic.- No recent full skin exam; primary care physician has checked skin in the past.- Uses two skin creams for spots similar to athlete's foot, which have been present for the last year.- Reports having skin tags, which are not a concern. OMAYRA TUBBS [address] [place] [address], [address], [place] [facility] 08/16/2024 12:00:13 09/17/2024 text/html Patient here for ln2 treatment of irritated lesions on his back. OMAYRA TUBBS [address] [place] [address], [address], [place] [facility] 09/17/2024 12:58:58
--- OUTSIDE RECORDS SUMMARY | 2025-02-09 07:59 | XMS_ITS | Clinical Summary ---
Author Organization [facility] Address [address] [place] [address] Phone Care Team Providers Care Tax Services Specialist Name Role Phone Maury Carey MD Primary Care Provider [phone] Allergies No known active allergies Medications tadalafil [...] Office Visit [facility] at [address] [address] Ras Finley PA-C Blepharitis of left upper [...] TSH (06/22/2016 2:16 PM EDT) Pathologist [facility] TSH 2.78 0.35 - 5.50 uIU/mL [facility] 06/22/2016 2:16 PM EDT 06/22/2016 2:16 PM EDT us Debora Wen MD LAB BLOOD BKR ORDERABLES Yenny l Result [facility] [place] [address] * (ABNORMAL) Lipid panel (06/22/2016 2:16 PM EDT) Cholesterol 193 <200 mg/dL [facility] Triglycerides 198(Abnor shell H) <150 mg/dL [facility] Cholesterol, HDL 43 >40 mg/dL [facility] LDLC 110 <129 mg/dL [facility] Cholesterol/HDL Ratio 4.49 <4.96 [facility] 06/22/2016 2:16 PM EDT 06/22/2016 2:16 PM EDT us Debora Wen MD LAB BLOOD BKR [place] [address] from Last 3 Months or Most Recently Relevant to Health Maintenance Insurance MEDICARE PART A & B [place]UE [place] BLUE REPLACEMENT MEDICARE PART A & B Member Subscriber Plan / Payer (Ef fective 2019-Present) Name:Quique Vu Member ID:[id number] Relation to Subscriber:Self Name:Quique Vu Subscriber ID:[id number] Payer ID:[id number] Group ID:Not on file Type:Medicare Address: [employer] [address] MEDICARE PPO BLUE REPLACEMENT MEDICARE PART A & B Member Subscriber Plan / Payer (Ef fective 2019-Present) Name:Quique Vu Member ID:[id number] Relation to Subscriber:Self Name:Quique Vu Lefty Subscriber ID:[id number] Payer ID:[id number] Group ID:Not on file Type:Medicare [facility] MEDICARE PPO BLUE REPLACEMENT MEDICARE PART A & B Member Subscriber Plan / Payer (Ef fective 2019-Present) Name:Quique Vu Member ID:[id number] Relation to Subscriber:Self Name:Quique Vu Subscriber ID:[id number] Payer ID:[id number] Group ID:Not on file Type:Medicare Address: [facility] [address] MEDICARE PPO BLUE REPLACEMENT Member Subscriber Plan / Payer (Ef fective 2019-Present) Name:Quique Vu Relation to Subscriber:Self Name:Quique Vu Payer ID:[id number] ([facility]) Type:Medicare Address: [facility] [address] [place] [address] MEDICARE PART A & B Member Subscriber Plan / Payer (Ef fective 2019-Present) Name:Quique Vu Member ID:[id number] Relation to Subscriber:Self Name:Quique Vu Subscriber ID:[id number] Payer ID:[id number] Group ID:Not on file Type:Medicare Address: [facility] [address] MEDICARE PPO BLUE REPLACEMENT MEDICARE PART A & B [place] BLUE REPLACEMENT Care Teams Tax Services Specialist Relationship Specialty Start Date End Date Maury Carey MD [address] [place] [address] [place] [address] PCP - General 01/24/24 Additional Source Comments The information contained in this document represents components of the legal health record. It is not the complete legal health record.[facility]
--- OUTSIDE RECORDS SUMMARY | 2025-02-09 07:59 | XMS_ITS | Clinical Summary ---
Author Organization [facility] Address [address] [place] [address] Care Team Providers Care Janitor Custodian Name Role Phone Unavailable Primary Care Provider [...]
--- NOTE | 2025-02-09 08:04 | ED_ITS ---
HPI - URI/Sore Throat General Chief Complaint: Upper Respiratory Symptoms Stated Complaint: diff breathing Time Seen by Provider: 02/09/25 07:53 Source: patient Mode of arrival: ambulatory Limitations: no limitations History of Present Illness HPI Narrative: The patient presented with 3 weeks' history of cough congestion he had a course of azithromycin late January. The he is still complaining of generalized weakness malaise poor energy he tells me that he was sent here by the primary care physician to get a CAT scan of the chest MD elicited complaint: cough Onset (ago): week(s) (3) Consistency: constant Severity: moderate Able to tolerate fluids by mouth: Yes Exacerbating factors: nothing Relieving factors: nothing Related Data Allergies Allergy/AdvReac Type Severity Reaction Status Date / Time No Known Allergies Allergy Verified 02/09/25 07:40 Review of Systems 2 Constitutional: Constitutional: Reports no additional constitutional complaints ENT: Reports system reviewed and no additional complaints, except as documented Respiratory: Respiratory: Reports as per HPI [facility] Past Medical History [facility] Narrative: He denies any major medical problem Social History Social History Smoked in Last 30 Days: No Use of substances other than those prescribed or required for medical reasons: No Advance Directives: No Advance Directives Information Provided: Yes Do you have a plan to hurt others: No Plan Physical Exam 2 Exam: Exam: He looks well is not toxic-appearing his vital signs are stable Vital Signs: Vital Signs: Last Vital Signs Temp 97.5 F 02/09/25 11:08 Pulse 55 02/09/25 11:08 Resp 16 02/09/25 11:08 BP 133/62 02/09/25 11:08 Pulse Ox 95 02/09/25 11:08 O2 Del Method Room Air 02/09/25 11:08 BMI result Body Mass Index 24.4 Const: General: cooperative Nutritional Appearance: well nourished O rientation/consciousness: patient oriented x3 HEENT: Head: Yes normal to inspection General nose exam: Normal external nose present Face and sinus: Yes normal facial exam Mouth: Normal oral and palatal mucosa present Throat: Yes posterior oropharynx normal Neck: Neck: Yes normal visual inspection Chest: Chest palpation & inspection: normal inspection of the chest Resp: Effort & Inspection: normal respiratory effort Auscultation: rhonchi Cardio: Jugular venous distension: no JVD Rate: regular rate GI: Inspection: Yes normal to inspection Palpation (GI): Soft to palpation Skin: General skin exam: no rashes or lesions noted and elasticity normal L esions: no lesions Rashes: no rashes Neuro: General: patient oriented x3 Course Reevaluation(s) Reevaluation #1: 11:07 he is feeling better cat scan the chest was negative for pneumonia, CBC was normal the chemistry showed JI he was given IV fluid and now is feeling better Time: 11:07 Medications Administered Discontinued Medications Generic Name Dose Route Start Last Admin Trade Name Freq PRN Reason Stop Dose Admin Sodium Chloride 1,000 mls @ 999 mls/hr 02/09/25 09:30 02/09/25 10:35 Ns IVCONT 02/09/25 10:30 Infused .Q1H1M DAMARIS Infusion Medical Decision Making Medical Decision Making [facility] Narrative: Patient is here with cough congestion for about 3 weeks we will obtain imaging of the chest and labs 11:07 feeling much better after IV fluids labs otherwise normal but an JI, chest CT showed no evidence of pneumonia Differential Diagnosis Differential Diagnoses: The differential diagnosis associated with the presentation includes Pneumonia/influenza/COVID Admission/Observation Consideration of admission/observation: Escalation of care including admission/observation considered Lab Data [facility] Lab Attestation statement: I reviewed the patient's lab results. 02/09/25 08:07 02/09/25 08:07 Labs: Lab Results 02/09/25 Range/Units 08:07 WBC 6.6 (4.8-10.8) X10*3/uL RBC 4.79 (4.60-5.80) X10*6/uL Hgb 14.5 (14.0-18.0) g/dl Hct 42.9 (42.0-52.0) % MCV 89.6 (80.0-98.0) fL MCH 30.3 (27.0-33.0) pg MCHC 33.8 (31.0-36.0) g/dl RDW 13.0 (11.0-16.0) % Plt Count 195 (160-400) X10*3/uL MPV 9.8 (9.4-12.4) fL Immature Gran % (Auto) 0.3 (0.0-0.4) % Neut % (Auto) 54.8 (45-73) % Lymph % (Auto) 30.7 (20-40) % [place] % (Auto) 9.7 (2-11) % Eos % (Auto) 3.7 (0-4) % Baso % (Auto) 0.8 (0-2) % Lymph # (Auto) 2.0 (1.2-4.9) X10*3/uL [place] # (Auto) 0.6 (0.1-1.2) X10*3/uL Eos # (Auto) 0.2 (0.0-0.4) X10*3/uL Baso # (Auto) 0.1 (0.0-0.2) X10*3/uL Abs Immat Gran (auto) 0.02 (0.00-0.03) X10*3/uL Absolute Neuts (auto) 3.6 (2.0-8.3) x10*3/uL Absolute Nucleated RBC 0.000 (0.0-0.012) X10*3/uL Nucleated RBC % (auto) 0.0 (0.0-0.2) /100WBC Sodium 140 (135-145) mmol/L Potassium 3.7 (3.3-5.1) mmol/L Chloride 108 (96-108) mmol/L Carbon Dioxide 20 L (22-29) mmol/L Anion Gap 16 (12-20) BUN 23 H (9-16) mg/dL Creatinine 1.54 H (0.5-1.4) mg/dL Estim Creat Clear Calc 46.0 Estimated GFR 45 Random Glucose 99 (60-115) mg/dL Calcium 9.4 (8.4-10.2) mg/dL Total Bilirubin 0.8 (0.0-1.0) mg/dL AST 28 (5-37) U/L ALT 25 (0-40) U/L Alkaline Phosphatase 56 (39-117) U/L Total Protein 7.1 (6.5-8.0) g/dL Albumin 4.4 (3.5-5.0) g/dL Influenza Type A (PCR) NEGATIVE (Negative) Influenza Type B (PCR) NEGATIVE (Negative) RSV RNA Qual (PCR) NEGATIVE (Negative) SARS-CoV-2 RNA (RT-PCR) NEGATIVE (Negative) Independent Interpretation I performed an independent interpretation of an: CT Scan Interpretation: No acute disease Radiology Impression Discussion of test interpretation with radiology: I have reviewed the radiologist's reading. Radiologist Impression: Reason for Exam: ? pneumonia CLINICAL HISTORY: ? pneumonia CT chest without contrast Comparison: CR/SR - XR CHEST 2 VIEWS - 01/28/25 14:17 EST Findings: The heart size is normal. The visualized thyroid and mediastinum are unremarkable. The lungs are clear. The upper abdomen is unremarkable. No acute fractures. IMPRESSION: 1. Unremarkable chest CT. This document has been electronically signed by: Heron Tao MD on 02/09/2025 09:20:49 Dictated By: Heron Tao MD Signed By: <Electronically signed by Heron Tao MD in OV> 02/09/25921 DD/ 9 TD/TT: 02/09/25919 Meeting Coordinator: Discharge Plan Discharge Clinical Impression: JI (acute kidney injury) Upper respiratory infection Qualifiers: URI type: unspecified URI Qualified Code(s): J06.9 - Acute upper respiratory infection, unspecified Patient Disposition: Home, Self-Care Instructions: Upper Respiratory Infection (DC) Additional Instructions: Follow-up with your primary care physician drink a lot of fluid return if worse Referrals: Maury Carey MD [Primary Care Provider, Internal Medicine] - 02/11/25 Print Language: Turkmen
[2025-02-09 08:13] LABS: Hematocrit 42.9 % (42.0-52.0); Hemoglobin 14.5 g/dl (14.0-18.0); Imm Gran Abs Auto 0.02 X10*3/uL (0.00-0.03); Imm Gran Pct Auto 0.3 % (0.0-0.4); Lymphocytes Absolute Auto 2.0 X10*3/uL (1.2-4.9); MANUAL DIFF FLAG NO; Mean Corpuscular HGB Conc 33.8 g/dl (31.0-36.0); Mean Corpuscular Hemoglobin 30.3 pg (27.0-33.0); Mean Corpuscular Volume 89.6 fL (80.0-98.0); NRBC Abs Auto 0.000 X10*3/uL (0.0-0.012); NRBC Pct Auto 0.0 /100WBC (0.0-0.2); Platelet Count 195 X10*3/uL (160-400); Red Blood Count 4.79 X10*6/uL (4.60-5.80); White Blood Count 6.6 X10*3/uL (4.8-10.8)
[2025-02-09 08:52] LABS: Alanine Aminotransferase 25 U/L (0-40); Albumin Level 4.4 g/dL (3.5-5.0); Alkaline Phosphatase 56 U/L (39-117); Anion Gap 16 (12-20); Aspartate Amino Transferase 28 U/L (5-37); Blood Urea Nitrogen 23 mg/dL (9-16); Calcium 9.4 mg/dL (8.4-10.2); Carbon Dioxide 20 mmol/L (22-29); Chloride 108 mmol/L (96-108); Creatinine Clr Calc Pharmacy 46.0; Estimated Glomerular Filt Rate 45; Potassium 3.7 mmol/L (3.3-5.1); Sodium 140 mmol/L (135-145); Total Protein 7.1 g/dL (6.5-8.0)
[2025-02-09 08:53] LABS: Resp Syncy Virus RNA Qual PCR NEGATIVE (Negative); SARS COV2 PCR INHOUSE NEGATIVE (Negative)
[2025-02-09 11:08] VITALS: BP 133/62; PULSE 55; RESP 16; TEMP 36.4; O2SAT 95
[2025-02-09 11:15] VITALS: BP 133/62; PULSE 55; RESP 16; TEMP 36.4; O2SAT 95
== END 2025-02-09 11:16 | disposition home or self-care (01) ==
PROVIDERS: Emergency Provider Emergency Medicine; PCP Internal Medicine Medical Oncology
DX: J06.9 Acute upper respiratory infection, unspecified (principal); N17.9 Acute kidney failure, unspecified; R05.9 Cough, unspecified; R53.1 Weakness; Z03.818 Encounter for observation for suspected exposure to other biological agents ruled out
CPT/HCPCS: 36415; 71250; 80053; 85025; 87637; 96360; 99284; 99285

== ENCOUNTER → 2025-02-09 07:59 | Outpatient (BNV) | payer MEDICARE, SELFPAY | PROVIDERS: Emergency Provider Emergency Medicine; PCP Internal Medicine Medical Oncology; Visit Provider Radiology Diagnostic Radiology | DX: Z03.89 Encounter for observation for other suspected diseases and conditions ruled out (principal) | CPT/HCPCS: 71250 ==

== ENCOUNTER 2025-03-06 10:30 | Outpatient (REF) | payer MEDICARE, SELFPAY ==
--- OUTSIDE RECORDS SUMMARY | 2023-11-22 08:45 | XMS_ITS ---
Author Organization Maury Carey III, MD Address [address] [place] [address] Care Team Providers Care Dry House Worker Name Role Phone Dr. Maury Carey III Primary Care Provider Allergies Allergen (clinical drug ingredient) Drug/Non Drug Allergy documented on EMR Reaction Allergy Type Onset Date Status No Known Drug Allergy Unknown Drug Allergy Active Seasonale Unknown Drug Allergy Active REASON FOR VISIT Penile itching and erythema, Hypertension, Depression, Hypothyroid, Benign prostatic hypertrophy Medications Medication SIG (Take, Route, Frequency, Duration) Notes Start Date End Date Status buPROPion HCl ER (SR) 100 MG 1 tablet in the morning Orally Once a day 05/24/2023 Active Vitamin C 1000 MG 1 tablet Orally Once a day Active Triamcinolone Acetonide 0.025 % 1 application Externally Once a day 07/27/2023 Active Ketoconazole 2 % 1 application Realtime Reporter ally Twice a day for 10 days 11/22/2023 01/01/2024 Active Zinc 100 MG 1 tablet Orally Once a day Active Levothyroxine Sodium 50 MCG TAKE 1 TABLET BY MOUTH EVERY DAY IN THE MORNING ON EMPTY STOMACH FOR 30 DAYS Active Vardenafil HCl 20 MG 1 tablet 60 minutes before sexual activity as needed Orally Once a day 09/05/2023 Active Social History Tobacco Use: Social History Observation Description Date Details (start date - stop date) Never Smoker NA - NA Sex Assigned At : Social History Observation Description Sex Assigned At Male Tobacco Use/Smoking Question Answer Notes Patient is a nonsmoker Additional Findings: Tobacco Non-User Aggressive non-smoker Problems Problem Type SNOMED Code ICD Code Onset Dates Problem Status W/U Status Risk Notes Problem 33926615 Caio (N48.1) Active confirmed This has completely resolved Vital Signs Temperature 97.9 degrees Fahrenheit 11/22/19 24 Blood pressure systolic 106 mm Hg 11/22/19 24 Blood pressure diastolic 62 mm Hg 024 Heart Rate 70 /min 11/22/2023 Height 70 in 11/22/2023 Weight 169 lbs 11/22/2023 BMI 24.25 kg/m2 11/22/2023 Encounters Encounter Location Date Provider Diagnosis Maury Carey III, MD [address] [place] [address] [address] [place], [place] [phone] 11/22/2023 Maury Carey Caio N48.1 ; Essential hypertension I10 ; History of depression Z86.59 and Hypothyroidism E03.9 Assessments Encounter Date Diagnosis (ICD Code) Assessment Notes Treat ment Notes Treatment Clinical Notes 11/22/2023 Caio (ICD-10 - N48.1) He was given a course of ketoconazole cream. 11/22/2023 Essential hypertension (ICD-10 - I10) His blood pressure remains well controlled at 122/71 and no change in his regimen was needed. 11/22/2023 History of depressio n (ICD-10 - Z86.59) He hasBeen feeling much better while taking the bupropion. The dose was increased and he will continue on it. His depression is beginning to resolve. A follow-up visit was arranged. 11/22/2023 Hypothyroidism (ICD-10 - E03.9) He has been compliant with his therapy and no change in his medications was necessary.Thyroid function tests have been ordered Plan Of Treatment Medication Medication Name Sig Start Date Stop Date Notes buPROPion HCl ER (SR) 100 MG 1 tablet in the morning Orally Once a day 05/24/2023 Vitamin C 1000 MG 1 tablet Orally Once a day Triamcinolone Acetonide 0.02 5 % 1 application Externally Once a day 07/27/2023 Ketoconazole 2 % 1 application Realtime Reporter ally Twice a day for 10 days 11/22/2023 01/01/2024 Zinc 100 MG 1 tablet Orally Once a day Levothyroxine Sodium 50 MCG TAKE 1 TABLE T BY MOUTH EVERY DAY IN THE MORNING ON EMPTY STOMACH FOR 30 DAYS Vardenafil HCl 20 MG 1 tablet 60 minutes before sexual activity as needed Orally Once a day 09/05/2023 Next Appt Details Follow Up: 6 Weeks, Reason: Office visit Provider Name:Maury Carey , 03/12/2025 09:00:00 AM, [address] [place] [address] [place], [address], Progress Notes * Javier VUOB:1955 (68 yo M)Acc No.[id number]:11/22/2023 Progress Notes Patient: Quique Hutton Provider: Christiano Carey MD :1955 A ge:68 Y S ex:Male Date:11/22/2023 Address[address] [place], [id number] Subjective: * Chief Complaints: * P enile itching and erythemaHypertensionDepressionHypothyroidBenign prostatic hypertrophy * HPI: C OVID-19 Screening: He comes to the office because he has had a pruritic red area on the glans of his penis for a week. It has not responded to jcys-jqa-xaoiflf ointments. Upon inspection it appeared to be a small area of balanitis. He did not wish to take an xamp-snr-tvsrgbj medication such as terbinafine. He was given a prescription for ketoconazole with a follow-up. His depression is unchanged. His vital signs were stable. 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 He was born in [facility]. He was in 2010. He [...] tablet in the morning Orally Once a dayTriamcinolone Acetonide 0.025 % Cream 1 application Externally Once a dayVardenafil HCl 20 MG Tablet 1 tablet 60 minutes before sexual activity as needed Orally Once a day, stop date 08/30/2024Medication List reviewed and reconciled with the patientTaking [...] tablet in the morning Orally Once a dayTaking Triamcinolone Acetonide 0.025 % Cream 1 application Externally Once a dayTaking Vardenafil HCl 20 MG Tablet 1 tablet 60 minutes before sexual activity as needed Orally Once a day, stop date 08/30/2024Medication List reviewed and reconciled with the patient * Allergies: N o Known Drug AllergySeasonaleno[Allergies Verified] Objective: * Vitals: H t: 70, Wt:169, BMI:24.25, BP:106/62, HR:70, Temp:97.9, Wt-k.66. * Examination: G eneral Examination: GENERAL APPEARANCE: [...] extremities, sensory exam intact. PSYCH: a lert, oriented. G enitourinary - Male: PENIS: A jovan of redness occupying 20% of glans at the tip without blisters or scaling. Assessment: * Assessment: 1. B alanitis - N48.1 (Primary), He was given a course of ketoconazole cream. 2 . E ssential hypertension - I10, His blood pressure remains well controlled at 122/71 and no change in his regimen was needed. 3 . H istory of depression - Z86.59, He hasBeen feeling much better while taking the bupropion. The dose was increased and he will continue on it. His depression is beginning to resolve. A follow-up visit was arranged. 4 . H ypothyroidism - E03.9, He has been compliant with his therapy and no change in his medications was necessary.Thyroid function tests have been ordered Plan: * Treatment: * Procedure Codes: * Follow Up: 6 Weeks (Reason: Office visit) * Images: * Sign off status: Completed true * Provider: Christiano Carey MD Date: 0 11/22/2023 Generated for Olga Lidia rogers/Helen/eTransmitting on: 1 11:45 AM EST History and Physical Notes * HPI (History of Present Illness) Category Sub-Category Detail Notes COVID-19 Screening Questions Have you had any new onset fever, chills, cough, congestion, sore throat, shortness of breath, muscle aches?: No Have you been exposed to the virus withi n the last 10 days?: No Have you travelled internationally in last 10 days?: No Have you been exposed to COVID-19 in the past?: No Examination Category Sub-Category Detail Notes Genitourinary - Male PENIS: Area of red ness occupying 20% of glans at the tip without blisters or scaling General Examination GENERAL APPEARANCE: pleasant , well [...] RECTAL EXAM: not examined PSYCH: alert, oriented ORAL CAVITY: normal, unremarkable
--- OUTSIDE RECORDS SUMMARY | 2023-11-23 09:22 | XMS_ITS ---
Author Organization Maury Carey III, MD Address [address] [place] [address] Care Team Providers Care Commercial Representative Name Role Phone Dr. Maury Carey III Primary Care Provider REASON FOR VISIT Rx Request Medications Medication SIG (Take, Route, Frequency, Duration) Notes Start Date End Date Status buPROPion HCl ER (SR) 100 MG 1 tablet in the morning Orally Once a day for 30 days 05/24/2023 Active Social History Sex Assigned At : Social History Observation Description Sex Assigned At Male Encounters Encounter Location Date Provider Diagnosis Maury Carey III, MD [address] [place] [address] [place] [address] 11/23/2023 Maury Carey Plan Of Treatment Medication Medication Name Sig Start Date Stop Date Notes buPROPion HCl ER (SR) 100 MG 1 tablet in the morning Orally Once a day for 30 days 05/24/2023 Next Appt Details Provider Name:Maury Carey , 03/12/2025 09:00:00 AM, [address] [place] [address] [place], [address], Progress Notes * Javier VUOB:1955 (68 yo M)Acc No.[id number]:11/23/2023 Patient: Quique Hutton :1955 A ge:68 Y S ex:Male Address:[address] [place], [address] * Refills Refill buPROPion HCl ER (SR) Tablet Extended Release 12 Hour, 100 MG, Orally, 30 Tablet, 1 tablet in the morning, Once a day, 30 days, Refills=11 * true * Date: Generated for Olga Lidia rogers/Helen/Yohana on: 11:45 AM EST
--- OUTSIDE RECORDS SUMMARY | 2023-11-25 03:15 | XMS_ITS ---
Author Organization Maury Carey III, MD Address [address] [place] [address] [place] [address] Care Team Providers Care Lasting Room Machine Operator Name Role Phone Dr. Maury Carey III Primary Care Provider [phone] REASON FOR VISIT Follow Up Social History Sex Assigned At : Social History Observation Description Sex Assigned At Male Encounters Encounter Location Date Provider Diagnosis Maury Carey III, MD [address] [place] [address] [address] [facility] [facility] [place] [address] 11/25/2023 Maury Carey Plan Of Treatment Next Appt Details Provider Name:Maury Carey , 03/12/2025 09:00:00 AM, [address] [place] [address] [place], [address], Progress Notes * Javier VUOB:1955 (69 yo M)Acc No.[id number]:11/25/2023 Progress Notes Patient: Quique RUBIO Provider: Christiano Carey MD :1955 A ge:68 Y S ex:Male Date:11/25/2023 [address] [id number] Subjective: * Chief Complaints: * 1 . [...] 11/25/2023 Generated for Olga Lidia rogers/Helen/Yohana on: 1 11:44 AM EST
--- OUTSIDE RECORDS SUMMARY | 2024-01-17 10:00 | XMS_ITS ---
Author Organization Maury Carey III, MD Address [address] [place] [address] Care Team Providers Care Lingo Cleaner Name Role Phone Dr. Maury Carey III [...] Date Provider Diagnosis Maury Carey III, MD [address] [place] [address] [place], [place] [phone] 01/17/2024 Maury Carey Hypothyroidism E03.9 ; Essential [...] Up: 4 Months, Reason: OV Provider Name:Maury Welshrne , 03/12/2025 09:00:00 AM, [address] [place] [address], [address], Progress Notes * Javier VUOB:1955 (68 yo M)Acc No.[id number]:01/17/2024 Progress Notes Patient: Quique RUBIO Provider: Christiano Carey MD :1955 A ge:68 Y S ex:Male Date:01/17/2024 [facility] Subjective: * Chief Complaints: * A nnual [...] the symptoms spreading. 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 He has [...] Temp:97.8, Wt-k.2. * P ast Orders: Lab:[facility] [place]. Tere l Fast * Collection Date 01/12/2024 [...] 03/18/2023 Generated for Olga Lidia rogers/Helen/Desmonditting on: 11:45 AM EST History and Physical Notes [...] days?: No Have you travelled internationally in hospital [facility] last 10 days?: No Have you been [...]
--- OUTSIDE RECORDS SUMMARY | 2024-05-21 05:30 | XMS_ITS ---
Author Organization Maury Carey III, MD Address [address] [place] [address] Care Team Providers Care Rn Paralegal Name Role Phone Dr. Maury Carey III Primary Care Provider [phone] Allergies Allergen (clinical drug ingredient) Drug/Non Drug Allergy documented on EMR Reaction Allergy Type Onset Date Status No Known Drug Allergy Unknown Drug Allergy Active Seasonale Unknown Drug Allergy Active REASON FOR VISIT Vibration lateral left thigh for 2 weeks, Hypertension, Depression, Hypothyroid, Benign prostatic hypertrophy Medications Medication SIG (Take, Route, Frequency, Duration) Notes Start Date End Date Status Triamcinolone Acetonide 0.025 % 1 application Externally Once a day 07/27/2023 Active Zinc 100 MG 1 tablet Orally Once a day Active Vitamin C 1000 MG 1 tablet Orally Once a day Active Vardenafil HCl 20 MG 1 tablet 60 minutes before sexual activity as needed Orally Once a day 09/05/2023 Active Levothyroxine Sodium 50 MCG TAKE 1 TABLE T BY MOUTH EVERY DAY Active buPROPion HCl ER (SR) 100 MG [...] Tobacco Non-User Aggressive non-smoker Vital Signs Temperature 97.2 degrees Fahrenheit 05/22/19 25 Blood pressure systolic 134 mm Hg 05/22/19 25 Blood pressure diastolic 87 mm Hg 025 Heart Rate 60 /min 05/21/2024 Height 70 in 05/21/2024 Weight 167 lbs 05/21/2024 BMI 23.96 kg/m2 05/21/2024 Encounters Encounter Location Date Provider Diagnosis Maury Carey III, MD [address] [place] [address] [address] [place], [place] [address] 05/21/2024 Maury Carey Essential hypertensi on I10 ; Hypothyroidism E03.9 ; Vitamin D deficiency, unspecified E55.9 and BPH (benign prostatic hypertrophy) N40.0 Assessments Encounter Date Diagnosis (ICD Code) Assessment Notes Treat ment Notes Treatment Clinical Notes 05/21/2024 Essential hypertension (ICD-10 - I10) His blood pressure is currently stable and no change in his regimen was made. 05/21/2024 Hypothyroidism (ICD-10 - E03.9) He has been compliant with his medications. His thyroid function tests are within normal range. No change in his regimen as needed. 05/21/2024 Vitamin D deficiency , unspecified (ICD-10 - E55.9) He has continued on his vitamin D supplementation. 05/21/2024 BPH (benign prostati c hypertrophy) (ICD-10 - N40.0) We have discussed lifestyle modifications that he could make to reduce nocturia. He admits to once a night. Plan Of Treatment Medication Medication Name Sig Start Date Stop Date Notes Triamcinolone Acetonide 0.02 5 % 1 application Externally Once a day 07/27/2023 Zinc 100 MG 1 tablet Orally Once a day Vitamin C 1000 MG 1 tablet Orally Once a day Vardenafil HCl 20 MG 1 tablet 60 minutes before sexual activity as needed Orally Once a day 09/05/2023 Levothyroxine Sodium 50 MCG TAKE 1 TABLE T BY MOUTH EVERY DAY buPROPion HCl ER (SR) 100 MG 1 tablet in the morning Orally Once a day 05/24/2023 Pending Test Test Name Order Date PROFILE, FASTING (COMPREHENSIVE METABOLI C) 05/21/2024 TSH (THYROID STIMULATING HORMONE) 2024 PSA, TOTAL 05/21/2024 CBC w DIFF 05/21/2024 Lipid Panel 05/21/2024 Free T4 (Free Thyroxine) 05/21/2024 Next Appt Details Follow Up: 4 Months, Reason: OV Provider Name:Maury Carey , 03/12/2025 09:00:00 AM, [address] [place] [address] [address], [place], [address], Progress Notes * Javier VUOB:1955 (68 yo M)Acc No.[id number]:05/21/2024 Progress Notes Patient: Quique RUBIO Provider: Christiano Carey MD :1955 A ge:68 Y S ex:Male Date:05/21/2024 Address:[address] [id number] Subjective: * Chief Complaints: * V ibration lateral left thigh for 2 weeksHypertensionDepressionHypothyroidBenign prostatic hypertrophy * HPI: C OVID-19 Screening: He returns to the office for a routine scheduled visit to manage his medical issues. He has recovered from an upper respiratory infection he had last week. He admits to nocturia once a night. He denies any chest pain shortness of breath leading nausea vomiting or diarrhea. He has been compliant with his regimen. No major changes in lifestyle have occurred. Questions H ave you had any new onset fever, chills, cough, congestion, sore throat, shortness of breath, muscle aches? 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 He was born in [facility]. He was in 2010. He has 2 healthy daughters one of whom has back issues. He has 1 healthy grandchild. He does not smoke or drink alcohol. He is living with a significant other, Gabrielle. * Medications: T akingbuPROPion HCl ER (SR) 100 MG Tablet Extended Release 12 Hour 1 tablet in the morning Orally Once a day Vardenafil HCl 20 MG Tablet 1 tablet 60 minutes before sexual activity as needed Orally Once a day Zinc 100 MG Tablet 1 tablet Orally Once a day Vitamin C 1000 MG Tablet 1 tablet Orally Once a day Triamcinolone Acetonide 0.025 % Cream 1 application Externally Once a day Levothyroxine Sodium 50 MCG Tablet TAKE 1 TABLET BY MOUTH EVERY DAY Medication List reviewed and reconciled with the patientTaking buPROPion HCl ER (SR) 100 MG Tablet Extended Release 12 Hour 1 tablet in the morning Orally Once a day Taking Vardenafil HCl 20 MG Tablet 1 tablet 60 minutes before sexual activity as needed Orally Once a day Taking Zinc 100 MG Tablet 1 tablet Orally Once a day Taking Vitamin C 1000 MG Tablet 1 tablet Orally Once a day Taking Triamcinolone Acetonide 0.025 % Cream 1 application Externally Once a day Taking Levothyroxine Sodium 50 MCG Tablet TAKE 1 TABLET BY MOUTH EVERY DAY Medication List reviewed and reconciled with the patient * Allergies: N o Known Drug AllergySeasonaleno[Allergies Verified] Objective: * Vitals: H t: 70, Wt:167, BMI:23.96, BP:134/87, HR:60, Temp:97.2, Wt-k.75. * P ast Orders: Lab:Complete Blood Count Aut o Diff * Collection Date 05/17/2024 01/12/2024 05/24/2023 Collection Time 10:59 AM 12:01 PM 04:49 PM Order Date 05/17/2024 01/12/2024 05/24/2023 White Blood Count 7.0 (Ref Range: 4.8-10.8 X10*3/uL) 5.7 (Ref Range: 4.8-10.8 X10*3/uL) 5.4 (Ref Range: 4.8-10.8 X10*3/uL) Red Blood Count 4.56 L (Ref Range: 4.60-5.80 X10*6/uL) 4.74 (Ref Range: 4.60-5.80 X10*6/uL) 4.81 (Ref Range: 4.60-5.80 X10*6/uL) Hemoglobin 14.2 (Ref Range: 14.0-18.0 g/dl) 14.5 (Ref Range: 14.0-18.0 g/dl) 14.9 (Ref Range: 14.0-18.0 g/dl) Hematocrit 41.1 L (Ref Range: 42.0-52.0 %) 43.5 (Ref Range: 42.0-52.0 %) 43.8 (Ref Range: 42.0-52.0 %) Mean Corpuscular Volume 90.1 (Ref Range: 80.0-98.0 fL) 91.8 (Ref Range: 80.0-98.0 fL) 91.1 (Ref Range: 80.0-98.0 fL) Mean Corpuscular Hemoglobin 31.1 (Ref Range: 27.0-33.0 pg) 30.6 (Ref Range: 27.0-33.0 pg) 31.0 (Ref Range: 27.0-33.0 pg) Mean Corpuscular HGB Conc 34.5 (Ref Range: 31.0-36.0 g/dl) 33.3 (Ref Range: 31.0-36.0 g/dl) 34.0 (Ref Range: 31.0-36.0 g/dl) Red Cell Distribution Width 13.5 (Ref Range: 11.0-16.0 %) 13.4 (Ref Range: 11.0-16.0 %) 13.4 (Ref Range: 11.0-16.0 %) Platelet Count 180 (Ref Range: 160-400 X10*3/uL) 217 (Ref Range: 160-400 X10*3/uL) 177 (Ref Range: 160-400 X10*3/uL) Mean Platelet Volume 9.6 (Ref Range: 9.4-12.4 fL) 9.9 (Ref Range: 9.4-12.4 fL) 10.3 (Ref Range: 9.4-12.4 fL) Neutrophils Percent Auto 56.8 (Ref Range: 45-73 %) 53.8 (Ref Range: 45-73 %) 49.8 (Ref Range: 45-73 %) Imm Gran Pct Auto 0.3 (Ref Range: 0.0-0.4 %) 0.4 (Ref Range: 0.0-0.4 %) 0.2 (Ref Range: 0.0-0.4 %) Lymphocytes Percent Auto 27.4 (Ref Range: 20-40 %) 29.1 (Ref Range: 20-40 %) 32.9 (Ref Range: 20-40 %) Monocytes Percent Auto 10.2 (Ref Range: 2-11 %) 10.9 (Ref Range: 2-11 %) 11.2 H (Ref Range: 2-11 %) Eosinophils Percent Auto 4.4 H (Ref Range: 0-4 %) 4.9 H (Ref Range: 0-4 %) 5.2 H (Ref Range: 0-4 %) Basophils Percent Auto 0.9 (Ref Range: 0-2 %) 0.9 (Ref Range: 0-2 %) 0.7 (Ref Range: 0-2 %) NRBC Pct Auto 0.0 (Ref Range: 0.0-0.2 /100WBC) 0.0 (Ref Range: 0.0-0.2 /100WBC) 0.0 (Ref Range: 0.0-0.2 /100WBC) Neutrophils Absolute Auto 4.0 (Ref Range: 2.0-8.3 x10*3/uL) 3.1 (Ref Range: 2.0-8.3 x10*3/uL) 2.7 (Ref Range: 2.0-8.3 x10*3/uL) Imm Gran Abs Auto 0.02 (Ref Range: 0.00-0.03 X10*3/uL) 0.02 (Ref Range: 0.00-0.03 X10*3/uL) 0.01 (Ref Range: 0.00-0.03 X10*3/uL) Lymphocytes Absolute Auto 1.9 (Ref Range: 1.2-4.9 X10*3/uL) 1.7 (Ref Range: 1.2-4.9 X10*3/uL) 1.8 (Ref Range: 1.2-4.9 X10*3/uL) Monocytes Absolute Auto 0.7 (Ref Range: 0.1-1.2 X10*3/uL) 0.6 (Ref Range: 0.1-1.2 X10*3/uL) 0.6 (Ref Range: 0.1-1.2 X10*3/uL) Eosinophils Absolute Auto 0.3 (Ref Range: 0.0-0.4 X10*3/uL) 0.3 (Ref Range: 0.0-0.4 X10*3/uL) 0.3 (Ref Range: 0.0-0.4 X10*3/uL) Basophils Absolute Auto 0.1 (Ref Range: 0.0-0.2 X10*3/uL) 0.1 (Ref Range: 0.0-0.2 X10*3/uL) 0.0 (Ref Range: 0.0-0.2 X10*3/uL) NRBC Abs Auto 0.000 (Ref Range: 0.0-0.012 X10*3/uL) 0.000 (Ref Range: 0.0-0.012 X10*3/uL) 0.000 (Ref Range: 0.0-0.012 X10*3/uL) * Lab:[facility] Tere l Fast * Collection Date 05/17/2024 01/12/2024 11/15/2022 Collection Time 10:59 AM 12:01 PM 01:57 PM Order Date 05/17/2024 01/12/2024 11/15/2022 Sodium 140 (Ref Range: 135-145 mmol/L) 139 (Ref Range: 135-145 mmol/L) 141 (Ref Range: 135-145 mmol/L) Bilirubin Total 0.7 (Ref Range: 0.0-1.0 mg/dL) 1.0 (Ref Range: 0.0-1.0 mg/dL) 0.9 (Ref Range: 0.0-1.0 mg/dL) Aspartate Amino Transferase 25 (Ref Range: 5-37 U/L) 29 (Ref Range: 5-37 U/L) 21 (Ref Range: 5-37 U/L) Alanine Aminotransferase 28 (Ref Range: 0-40 U/L) 32 (Ref Range: 0-40 U/L) 22 (Ref Range: 0-40 U/L) Total Protein 7.1 (Ref Range: 6.5-8.0 g/dL) 7.4 (Ref Range: 6.5-8.0 g/dL) 7.1 (Ref Range: 6.5-8.0 g/dL) Albumin Level 3.8 (Ref Range: 3.5-5.0 g/dL) 4.2 (Ref Range: 3.5-5.0 g/dL) 4.2 (Ref Range: 3.5-5.0 g/dL) Alkaline Phosphatase 60 (Ref Range: 39-117 U/L) 59 (Ref Range: 39-117 U/L) 53 (Ref Range: 39-117 U/L) Potassium 4.0 (Ref Range: 3.3-5.1 mmol/L) 4.6 (Ref Range: 3.3-5.1 mmol/L) 4.6 (Ref Range: 3.3-5.1 mmol/L) Chloride 110 H (Ref Range: 96-108 mmol/L) 107 (Ref Range: 96-108 mmol/L) 107 (Ref Range: 96-108 mmol/L) Carbon Dioxide 26 (Ref Range: 22-29 mmol/L) 26 (Ref Range: 22-29 mmol/L) 27 (Ref Range: 22-29 mmol/L) Anion Gap 8 L (Ref Range: 12-20) 11 L (Ref Range: 12-20) 12 (Ref Range: 12-20) Blood Urea Nitrogen 27 H (Ref Range: 9-16 mg/dL) 19 H (Ref Range: 9-16 mg/dL) 19 H (Ref Range: 9-16 mg/dL) Creatinine 1.40 (Ref Range: 0.5-1.4 mg/dL) 1.21 (Ref Range: 0.5-1.4 mg/dL) 1.20 (Ref Range: 0.5-1.4 mg/dL) Estimated Glomerular Filt Rate 50 59 > 60 Glucose Fasting 90 (Ref Range: 60-99 mg/dL) 99 (Ref Range: 60-99 mg/dL) 97 (Ref Range: 60-99 mg/dL) Calcium 9.0 (Ref Range: 8.4-10.2 mg/dL) 9.7 (Ref Range: 8.4-10.2 mg/dL) 10.0 (Ref Range: 8.4-10.2 mg/dL) * Lab:Lipid Panel * Collection Date 05/17/2024 01/12/2024 11/15/2022 Collection Time 10:59 AM 12:01 PM 01:57 PM Order Date 05/17/2024 01/12/2024 11/15/2022 Triglycerides 75 (Ref Range: <150 mg/dL) 94 (Ref Range: <150 mg/dL) 142 (Ref Range: <150 mg/dL) Cholesterol 188 (Ref Range: <200 mg/dL) 204 H (Ref Range: <200 mg/dL) 198 (Ref Range: <200 mg/dL) LDL Cholesterol Calculated 125 H (Ref Range: <100 mg/dL) 131 H (Ref Range: <100 mg/dL) 128 H (Ref Range: <100 mg/dL) HDL Cholesterol 48 (Ref Range: >40 mg/dL) 55 (Ref Range: >40 mg/dL) 42 (Ref Range: >40 mg/dL) * Lab:Free T4 (Free Thyroxine) * Collection Date 05/17/2024 01/12/2024 05/24/2023 Collection Time 10:59 AM 12:01 PM 04:49 PM Order Date 05/17/2024 01/12/2024 05/24/2023 Free T4 (Free Thyroxine) 1.08 (Ref Range: 0.71-1.85 ng/dL) 1.11 (Ref Range: 0.71-1.85 ng/dL) 1.11 (Ref Range: 0.71-1.85 ng/dL) * Lab:Thyroid Stimulating Horm one * Collection Date 05/17/2024 01/12/2024 05/24/2023 Collection Time 10:59 AM 12:01 PM 04:49 PM Order Date 05/17/2024 01/12/2024 05/24/2023 Thyroid Stimulating Hormone 2.32 (Ref Range: 0.32-4.0 uIU/mL) 1.75 (Ref Range: 0.32-4.0 uIU/mL) 0.91 (Ref Range: 0.32-4.0 uIU/mL) * Examination: G eneral Examination: GENERAL APPEARANCE: [...] sensory exam intact. PSYCH: a lert, oriented. Assessment: * Assessment: 1. E ssential hypertension - I10 (Primary) N otes :His blood pressure is currently stable and no change in his regimen was made. 2 . H ypothyroidism - E03.9 N otes :He has been compliant with his medications. His thyroid function tests are within normal range. No change in his regimen as needed. 3 . V itamin D deficiency, unspecified - E55.9 N otes :He has continued on his vitamin D supplementation. 4 . B PH (benign prostatic hypertrophy) - N40.0 N otes :We have discussed lifestyle modifications that he could make to reduce nocturia. He admits to once a night. Plan: * Treatment: 2. H ypothyroidism L AB: PROFILE, FASTING (COMPREHENSIVE METABOLIC) L AB: TSH (THYROID STIMULATING HORMONE) L AB: PSA, TOTAL L AB: CBC w DIFF L AB: Lipid Panel L AB: Free T4 (Free Thyroxine) 3. V itamin D deficiency, unspecified L AB: PROFILE, FASTING (COMPREHENSIVE METABOLIC) L AB: TSH (THYROID STIMULATING HORMONE) L AB: PSA, TOTAL L AB: CBC w DIFF L AB: Lipid Panel L AB: Free T4 (Free Thyroxine) 4. B PH (benign prostatic hypertrophy) L AB: PROFILE, FASTING (COMPREHENSIVE METABOLIC) L AB: TSH (THYROID STIMULATING HORMONE) L AB: PSA, TOTAL L AB: CBC w DIFF L AB: Lipid Panel L AB: Free T4 (Free Thyroxine) 5. O thers Continue Levothyroxine Sodium Tablet, 50 MCG, TAKE 1 TABLET BY MOUTH EVERY DAY; C ontinue buPROPion HCl ER (SR) Tablet Extended Release 12 Hour, 100 MG, 1 tablet in the morning, Orally, Once a day; C ontinue Vardenafil HCl Tablet, 20 MG, 1 tablet 60 minutes before sexual activity as needed, Orally, Once a day; C ontinue Zinc Tablet, 100 MG, 1 tablet, Orally, Once a day; C ontinue Vitamin C Tablet, 1000 MG, 1 tablet, Orally, Once a day; C ontinue Triamcinolone Acetonide Cream, 0.025 %, 1 application, Externally, Once a day. * Procedure Codes: * Follow Up: 4 Months (Reason: OV) * Images: * Sign off status: Completed true * Provider: Christiano Carey MD Date: 0 05/21/2024 Generated for Jayai sue/Helen/Eliasmitting on: 1 11:46 AM EST History and Physical Notes * HPI (History of Present Illness) Category Sub-Category Detail Notes COVID-19 Screening Questions Have you had any new onset fever, chills, cough, congestion, sore throat, shortness of breath, muscle aches?: No Examination Category Sub-Category Detail Notes General [...]
--- OUTSIDE RECORDS SUMMARY | 2024-09-20 05:15 | XMS_ITS ---
Author Organization Maury Carey III, MD Address [address] [place] [address] Care Team Providers Care Morphologist Name Role Phone Dr. Maury Carey III [...] Provider Diagnosis Maury Carey III, MD [address] [place] [address] [address] [place], [place] [address] 09/20/2024 Maury Carey Essential hypertensi on I10 [...] Scheduled, Alyssa son: Annual Exam Provider Name:Maury Grijalvane , 03/12/2025 09:00:00 AM, [address] [place] [address], [address], Progress Notes * Javier VUOB:1955 (68 yo M)Acc No.[id number]:09/20/2024 Progress Notes Patient: Quique RUBIO Provider: Christiano Carey MD :1955 A ge:68 Y S ex:Male Date:09/20/2024 [facility] Subjective: * Chief Complaints: * H ypertensionDepressionHypothyroidBPH [...] 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 He was in 2010. [...] Date: 0 09/20/2024 Generated for Olga Lidia rogers/Helen/Desmonditting on: 1 11:45 AM EST History and [...]
--- OUTSIDE RECORDS SUMMARY | 2025-01-15 05:44 | XMS_ITS ---
Author Organization Maury Carey III, MD Address [address] [place] [address] Care Team Providers Care Auto Salvage Worker Name Role Phone Dr. Maury Carey III Primary Care Provider REASON FOR VISIT Message Social History Sex Assigned At : Social History Observation Description Sex Assigned At Male Encounters Encounter Location Date Provider Diagnosis Maury Carey III, MD [address] [place] [address] [address] [facility] [place] [address] 01/15/2025 Maury Carey Plan Of Treatment Next Appt Details Provider Name:Maury Carey , 03/12/2025 09:00:00 AM, [address] [place] [address] [address], [place], [address], Progress Notes * MAGALYSBHARTI ServandoBereOB:1955 (69 yo M)Acc No.[id number]:01/15/2025 Patient: Quique RUBIO :1955 A ge:69 Y S ex:Male Address:[address] [facility] [place], [address] * true * Date: Generated for Printi ng/Faxing/eTransmitting on: 11:46 AM EST
--- OUTSIDE RECORDS SUMMARY | 2025-01-21 12:00 | XMS_ITS ---
Author Organization Maury Carey III, MD Address [address] [place] [address] Care Team Providers Care Technical Account Executive Name Role Phone Dr. Maury Carey III Primary Care Provider Allergies Allergen (clinical drug ingredient) Drug/Non Drug Allergy documented on EMR Reaction Allergy Type Onset Date Status No Known Drug Allergy Unknown Drug Allergy Active Seasonale Unknown Drug Allergy Active REASON FOR VISIT annual exam Medications Medication SIG (Take, Route, Frequency, Duration) Notes Start Date End Date Status Vitamin C 1000 MG 1 tablet Orally Once a day Active Zinc 100 MG 1 tablet Orally Once a day Active Vardenafil HCl 20 MG 1 tablet 60 minutes before sexual activity as needed Orally Once a day 09/05/2023 Active buPROPion HCl ER (SR) 100 MG 1 tablet in the morning Orally Once a day 05/24/2023 Active Triamcinolone Acetonide 0.025 % 1 application Externally Once a day 07/27/2023 Active Levothyroxine Sodium 50 MCG TAKE 1 TABLE T BY MOUTH EVERY DAY Active Social History Tobacco Use: Social History Observation Description Date Details (start date - stop date) Never Smoker NA - NA Sex Assigned At : Social History Observation Description Sex Assigned At Male Tobacco Use/Smoking Question Answer Notes Patient is a nonsmoker Additional Findings: Tobacco Non-User Aggressive non-smoker Encounters Encounter Location Date Provider Diagnosis Maury Carey III, MD [address] [place] [address] [place] [address] 01/21/2025 Maury Carey Plan Of Treatment Medication Medication Name Sig Start Date Stop Date Notes Vitamin C 1000 MG 1 tablet Orally Once a day Zinc 100 MG 1 tablet Orally Once a day Vardenafil HCl 20 MG 1 tablet 60 minutes before sexual activity as needed Orally Once a day 09/05/2023 buPROPion HCl ER (SR) 100 MG 1 tablet in the morning Orally Once a day 05/24/2023 Triamcinolone Acetonide 0.02 5 % 1 application Externally Once a day 07/27/2023 Levothyroxine Sodium 50 MCG TAKE 1 TABLE T BY MOUTH EVERY DAY Next Appt Details Provider Name:Maury Grijalvane , 03/12/2025 09:00:00 AM, [address] [place] [address], [place] [address], [place], [address], Progress Notes * Javier VUOB:1955 (69 yo M)Acc No.[id number]:01/21/2025 Progress Notes Patient: Quique RUBIO Provider: Christiano Carey MD :1955 A ge:69 Y S ex:Male Date:01/21/2025 [facility] Subjective: * Chief Complaints: * 1 . Annual exam. * HPI: C OVID-19 Screening: Questions H ave you had any new [...] of breath d enies. G astrointestinal: Constipation d enies. D ecreased appetite d enies.?Diarrhea d enies. H eartburn d enies. N ausea d enies. R ectal bleeding?denies. V omiting d enies. H ematology: bruising d enies. p etechiae d enies. S wollen glands n one have been noted. G enitourinary: Frequent urination d enies. M usculoskeletal: Muscle aches d enies. P ainful joints d enies. S ciatica d enies. W eakness d enies. S kin: Itching d enies. R rizwan d enies. S kin lesion(s)?denies. N eurologic: Difficulty speaking d enies. D izziness d enies.?Headache d enies. L ow back pain d enies. P sychiatric: Depressed mood d enies. * Medical History: H TN (hypertension), Depression, Maternal history of breast cancer, Cold weather dermatitis. * Surgical History: T onsilectomy . * Hospitalization/Major Diagno stic Procedure: D enies Past Hospitalization. 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 He was in 2010. He has 2 healthy daughters one of whom has back issues. He has 1 healthy grandchild. He does not smoke or drink alcohol. He is living with a significant other, Gabrielle. * Medications: T aking Levothyroxine Sodium 50 MCG Tablet TAKE 1 TABLET BY MOUTH EVERY DAY , Taking buPROPion HCl ER (SR) 100 MG Tablet Extended Release 12 Hour 1 tablet in the morning Orally Once a day , Taking Vardenafil HCl 20 MG Tablet 1 tablet 60 minutes before sexual activity as needed Orally Once a day , Taking Zinc 100 MG Tablet 1 tablet Orally Once a day , Taking Vitamin C 1000 MG Tablet 1 tablet Orally Once a day , Taking Triamcinolone Acetonide 0.025 % Cream 1 application Externally Once a day , Medication List reviewed and reconciled with the patient * Allergies: N o Known Drug Allergy, Seasonale. Objective: * Vitals: * Examination: G eneral Examination: GENERAL APPEARANCE: p leasant, well nourished, well developed, in no acute distress, calm and relaxed. HEAD: a traumatic, normocephalic. EYES: e sofi, [...] exam intact. PSYCH: a lert, oriented. Assessment: Plan: * Treatment: * Images: * The named appointment provid er may or may not be the originator of this progress note, and it is not deemed complete until electronically signed by the appointment provider. Sign off status: Pending * Provider: Christiano Carey MD Date: 03/23/2024 Generated for Olga Lidia rogers/Helen/eTransmitting on: 11:44 AM EST History and Physical Notes * HPI (History of Present Illness) Category Sub-Category Detail Notes COVID-19 Screening Questions Have you had any new onset fever, chills, cough, congestion, sore throat, shortness of breath, muscle aches?: No Examination Category Sub-Category Detail Notes General Examination GENERAL APPEARANCE: pleasant , well nourished, well developed, in no acute distress, calm and relaxed HEAD: atraumatic, normocep halic EYES: eomi, perrla, [...]
--- OUTSIDE RECORDS SUMMARY | 2025-01-28 08:15 | XMS_ITS ---
Author Organization Maury Carey III, MD Address [address] [address] Care Team Providers Care Field Technical Support Consultant Name Role Phone Dr. Maury Carey III Primary Care Provider Allergies Allergen (clinical drug ingredient) Drug/Non Drug Allergy documented on EMR Reaction Allergy Type Onset Date Status No Known Drug Allergy Unknown Drug Allergy Active Seasonale Unknown Drug Allergy Active REASON FOR VISIT congestion, Cough, Weakness, Hypertension, Depression, Hypothyroidism, Benign prostatic hypertrophy Medications Medication SIG (Take, Route, Frequency, Duration) Notes Start Date End Date Status Azithromycin 250 MG like directed Orally 2 Tablets on the first day, one tablet the rest of the days for 5 days 01/28/2025 Active Vardenafil HCl 20 MG 1 tablet [...] non-smoker Vital Signs Temperature 97.8 degrees Fahrenheit 01/29/20 25 Blood pressure systolic 135 mm Hg 01/29/20 25 Blood pressure diastolic 79 mm Hg 025 Heart Rate 78 /min 01/28/2025 Height 70 in 01/28/2025 Weight 169 lbs 01/28/2025 BMI 24.25 kg/m2 01/28/2025 Encounters Encounter Location Date Provider Diagnosis Maury Carey III, MD [address] [place] [address] DR [place], [place] [address] 01/28/2025 Maury Carey Bronchitis J40 ; His tory of depression Z86.59 ; Essential hypertension I10 ; Hypothyroidism E03.9 ; Vitamin D deficiency, unspecified E55.9 and BPH (benign prostatic hypertrophy) N40.0 Assessments Encounter Date Diagnosis (ICD Code) Assessment Notes Treat ment Notes Treatment Clinical Notes 01/28/2025 Bronchitis (ICD-10 - J40) His blood work is within normal limits. His examination showed no serious problems. He has chronic on acute bronchitis and should recover soon. His oxygen saturation is adequate. He was given a prescription for azithromycin. 01/28/2025 History of depressio n (ICD-10 - Z86.59) He hasBeen feeling much better while taking the bupropion. The dose was increased and he will continue on it. His depression is beginning to resolve. A follow-up visit was arranged. 01/28/2025 Essential hypertension (ICD-10 - I10) His blood pressure is currently stable. 01/28/2025 Hypothyroidism (ICD-10 - E03.9) He remains euthyroid and no change in his regimen as necessary. 01/28/2025 Vitamin D deficiency , unspecified (ICD-10 - E55.9) His vitamin D supplements were continued. 01/28/2025 BPH (benign prostati c hypertrophy) (ICD-10 - N40.0) He has been rising from sleep once a night depending upon fluid intake. We discussed ways to alter his lifestyle so this would be improved. Plan Of Treatment Medication Medication Name Sig Start Date Stop Date Notes Azithromycin 250 MG like directed Orally 2 Tablets on the first day, one tablet the rest of the days for 5 days 01/28/2025 Vardenafil HCl 20 MG 1 tablet 60 minutes before sexual activity as needed Orally Once a day 09/05/2023 Zinc 100 MG 1 tablet Orally Once [...] 05/24/2023 Pending Test Test Name Order Date XR CHEST 2 VIEW PA & LAT 01/28/2025 Next Appt Details Follow Up: 1 week TV, Reason : TV review cxr done at 01/28/2025 Provider Name:Maury Carey , 03/12/2025 09:00:00 AM, [address] [place] [address] [address], [place], [address], Progress Notes * Javier VUOB:1955 (69 yo M)Acc No.[id number]:01/28/2025 Patient: Quique RUBIO Provider: Christiano Carey MD :1955 A ge:69 Y S ex:Male Date:01/28/2025 [facility] Subjective: * Chief Complaints: * C ongestionCoughWeaknessHypertensionDepressionHypothyroidismBenign prostatic hypertrophy * HPI: C OVID-19 Screening: He called this morning to say he has been sick for 2 weeks and is upset he is not improving. He had typical URI symptoms 2 weeks ago but has continued to cough. He is producing yellow phlegm but has not had a fever. He is experiencing malaise.? Rhonchi were noted on his examination. He was treated with azithromycin and given a follow-up visit. His oxygen saturation was normal. Questions H ave you had any new onset fever, chills, cough, congestion, sore throat, shortness of breath, muscle aches? Y es Cough, Congestion for one week * ROS: G eneral/Constitutional: pain o nly normal aches and pains. C hills d enies.?Fatigue a dmits. F ever d enies. E NT: Decreased hearing d enies. R espiratory: Cough F or 2 weeks productive of thick yellow phlegm. ? C ardiovascular: Chest pain with exertion d [...] enies. S ciatica d enies. W eakness L ack of energy for 2 weeks. S kin: Itching d enies. R rizwan d enies. S kin lesion(s)?denies. N eurologic: Difficulty speaking d enies. D izziness d enies.?Headache d enies. L ow back pain d enies. P sychiatric: Depressed mood w hich is mild. 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 He has [...] Cream 1 application Externally Once a day * Allergies: N o Known Drug AllergySeasonale Objective: * Vitals: H t: 70, Wt:169, BMI:24.25, BP:135/79, HR:78, Temp:97.8, Wt-k.66. * P ast Orders: Lab:Vitamin D 25-OH Total * Collection Date 01/15/2025 05/24/2023 11/15/2022 Collection Time 11:25 AM 04:49 PM 01:57 PM Order Date 01/15/2025 05/24/2023 11/15/2022 Vitamin D 25-OH Total 50.4 (Ref Range: >30 ng/mL) 48.6 (Ref Range: >30 ng/mL) 49.8 (Ref Range: >30 ng/mL) * Lab:Prostate Specific Antige n * Collection Date 01/15/2025 09/17/2024 11/15/2022 Collection Time 11:25 AM 11:38 AM 01:57 PM Order Date 01/15/2025 09/17/2024 11/15/2022 Prostate Specific Antigen 2.38 (Ref Range: <0.05-4.0 ng/mL) 3.08 (Ref Range: <0.05-4.0 ng/mL) 1.05 (Ref Range: <0.05-4.0 ng/mL) * Lab:Lipid Panel * Collection Date 01/15/2025 09/17/2024 05/17/2024 Collection Time 11:25 AM 11:38 AM 10:59 AM Order Date 01/15/2025 09/17/2024 05/17/2024 Triglycerides 78 (Ref Range: <150 mg/dL) 101 (Ref Range: <150 mg/dL) 75 (Ref Range: <150 mg/dL) Cholesterol 179 (Ref Range: <200 mg/dL) 209 H (Ref Range: <200 mg/dL) 188 (Ref Range: <200 mg/dL) LDL Cholesterol Calculated 116 H (Ref Range: <100 mg/dL) 141 H (Ref Range: <100 mg/dL) 125 H (Ref Range: <100 mg/dL) HDL Cholesterol 48 (Ref Range: >40 mg/dL) 48 (Ref Range: >40 mg/dL) 48 (Ref Range: >40 mg/dL) * Lab:Comprehensive [place]. Pane l Fast * Collection Date 01/15/2025 09/17/2024 05/17/2024 Collection Time 11:25 AM 11:38 AM 10:59 AM Order Date 01/15/2025 09/17/2024 05/17/2024 Sodium 140 (Ref Range: 135-145 mmol/L) 142 (Ref Range: 135-145 mmol/L) 140 (Ref Range: 135-145 mmol/L) Bilirubin Total 0.7 (Ref Range: 0.0-1.0 mg/dL) 0.7 (Ref Range: 0.0-1.0 mg/dL) 0.7 (Ref Range: 0.0-1.0 mg/dL) Aspartate Amino Transferase 27 (Ref Range: 5-37 U/L) 27 (Ref Range: 5-37 U/L) 25 (Ref Range: 5-37 U/L) Alanine Aminotransferase 31 (Ref Range: 0-40 U/L) 32 (Ref Range: 0-40 U/L) 28 (Ref Range: 0-40 U/L) Total Protein 7.0 (Ref Range: 6.5-8.0 g/dL) 7.1 (Ref Range: 6.5-8.0 g/dL) 7.1 (Ref Range: 6.5-8.0 g/dL) Albumin Level 4.2 (Ref Range: 3.5-5.0 g/dL) 4.4 (Ref Range: 3.5-5.0 g/dL) 3.8 (Ref Range: 3.5-5.0 g/dL) Alkaline Phosphatase 57 (Ref Range: 39-117 U/L) 59 (Ref Range: 39-117 U/L) 60 (Ref Range: 39-117 U/L) Potassium 3.9 (Ref Range: 3.3-5.1 mmol/L) 4.3 (Ref Range: 3.3-5.1 mmol/L) 4.0 (Ref Range: 3.3-5.1 mmol/L) Chloride 111 H (Ref Range: 96-108 mmol/L) 108 (Ref Range: 96-108 mmol/L) 110 H (Ref Range: 96-108 mmol/L) Carbon Dioxide 23 (Ref Range: 22-29 mmol/L) 27 (Ref Range: 22-29 mmol/L) 26 (Ref Range: 22-29 mmol/L) Anion Gap 10 L (Ref Range: 12-20) 11 L (Ref Range: 12-20) 8 L (Ref Range: 12-20) Blood Urea Nitrogen 24 H (Ref Range: 9-16 mg/dL) 19 H (Ref Range: 9-16 mg/dL) 27 H (Ref Range: 9-16 mg/dL) Creatinine 1.39 (Ref Range: 0.5-1.4 mg/dL) 1.35 (Ref Range: 0.5-1.4 mg/dL) 1.40 (Ref Range: 0.5-1.4 mg/dL) Estimated Glomerular Filt Rate 51 52 50 Glucose Fasting 98 (Ref Range: 60-99 mg/dL) 101 H (Ref Range: 60-99 mg/dL) 90 (Ref Range: 60-99 mg/dL) Calcium 9.2 (Ref Range: 8.4-10.2 mg/dL) 9.6 (Ref Range: 8.4-10.2 mg/dL) 9.0 (Ref Range: 8.4-10.2 mg/dL) * Lab:Thyroid Stimulating Horm one * Collection Date 01/15/2025 09/17/2024 05/17/2024 Collection Time 11:25 AM 11:38 AM 10:59 AM Order Date 01/15/2025 09/17/2024 05/17/2024 Thyroid Stimulating Hormone 1.64 (Ref Range: 0.32-4.0 uIU/mL) 2.09 (Ref Range: 0.32-4.0 uIU/mL) 2.32 (Ref Range: 0.32-4.0 uIU/mL) * Lab:Complete Blood Count Aut o Diff * Collection Date 01/15/2025 09/17/2024 05/17/2024 Collection Time 11:25 AM 11:38 AM 10:59 AM Order Date 01/15/2025 09/17/2024 05/17/2024 White Blood Count 5.7 (Ref Range: 4.8-10.8 X10*3/uL) 5.6 (Ref Range: 4.8-10.8 X10*3/uL) 7.0 (Ref Range: 4.8-10.8 X10*3/uL) Red Blood Count 4.53 L (Ref Range: 4.60-5.80 X10*6/uL) 4.67 (Ref Range: 4.60-5.80 X10*6/uL) 4.56 L (Ref Range: 4.60-5.80 X10*6/uL) Hemoglobin 13.9 L (Ref Range: 14.0-18.0 g/dl) 14.1 (Ref Range: 14.0-18.0 g/dl) 14.2 (Ref Range: 14.0-18.0 g/dl) Hematocrit 41.8 L (Ref Range: 42.0-52.0 %) 42.8 (Ref Range: 42.0-52.0 %) 41.1 L (Ref Range: 42.0-52.0 %) Mean Corpuscular Volume 92.3 (Ref Range: 80.0-98.0 fL) 91.6 (Ref Range: 80.0-98.0 fL) 90.1 (Ref Range: 80.0-98.0 fL) Mean Corpuscular Hemoglobin 30.7 (Ref Range: 27.0-33.0 pg) 30.2 (Ref Range: 27.0-33.0 pg) 31.1 (Ref Range: 27.0-33.0 pg) Mean Corpuscular HGB Conc 33.3 (Ref Range: 31.0-36.0 g/dl) 32.9 (Ref Range: 31.0-36.0 g/dl) 34.5 (Ref Range: 31.0-36.0 g/dl) Red Cell Distribution Width 13.5 (Ref Range: 11.0-16.0 %) 13.6 (Ref Range: 11.0-16.0 %) 13.5 (Ref Range: 11.0-16.0 %) Platelet Count 207 (Ref Range: 160-400 X10*3/uL) 217 (Ref Range: 160-400 X10*3/uL) 180 (Ref Range: 160-400 X10*3/uL) Mean Platelet Volume 10.1 (Ref Range: 9.4-12.4 fL) 10.5 (Ref Range: 9.4-12.4 fL) 9.6 (Ref Range: 9.4-12.4 fL) Neutrophils Percent Auto 55.8 (Ref Range: 45-73 %) 56.0 (Ref Range: 45-73 %) 56.8 (Ref Range: 45-73 %) Imm Gran Pct Auto 0.4 (Ref Range: 0.0-0.4 %) 0.4 (Ref Range: 0.0-0.4 %) 0.3 (Ref Range: 0.0-0.4 %) Lymphocytes Percent Auto 26.9 (Ref Range: 20-40 %) 26.3 (Ref Range: 20-40 %) 27.4 (Ref Range: 20-40 %) Monocytes Percent Auto 9.9 (Ref Range: 2-11 %) 10.7 (Ref Range: 2-11 %) 10.2 (Ref Range: 2-11 %) Eosinophils Percent Auto 5.8 H (Ref Range: 0-4 %) 5.7 H (Ref Range: 0-4 %) 4.4 H (Ref Range: 0-4 %) Basophils Percent Auto 1.2 (Ref Range: 0-2 %) 0.9 (Ref Range: 0-2 %) 0.9 (Ref Range: 0-2 %) NRBC Pct Auto 0.0 (Ref Range: 0.0-0.2 /100WBC) 0.0 (Ref Range: 0.0-0.2 /100WBC) 0.0 (Ref Range: 0.0-0.2 /100WBC) Neutrophils Absolute Auto 3.2 (Ref Range: 2.0-8.3 x10*3/uL) 3.1 (Ref Range: 2.0-8.3 x10*3/uL) 4.0 (Ref Range: 2.0-8.3 x10*3/uL) Imm Gran Abs Auto 0.02 (Ref Range: 0.00-0.03 X10*3/uL) 0.02 (Ref Range: 0.00-0.03 X10*3/uL) 0.02 (Ref Range: 0.00-0.03 X10*3/uL) Lymphocytes Absolute Auto 1.5 (Ref Range: 1.2-4.9 X10*3/uL) 1.5 (Ref Range: 1.2-4.9 X10*3/uL) 1.9 (Ref Range: 1.2-4.9 X10*3/uL) Monocytes Absolute Auto 0.6 (Ref Range: 0.1-1.2 X10*3/uL) 0.6 (Ref Range: 0.1-1.2 X10*3/uL) 0.7 (Ref Range: 0.1-1.2 X10*3/uL) Eosinophils Absolute Auto 0.3 (Ref Range: 0.0-0.4 X10*3/uL) 0.3 (Ref Range: 0.0-0.4 X10*3/uL) 0.3 (Ref Range: 0.0-0.4 X10*3/uL) Basophils Absolute Auto 0.1 (Ref Range: 0.0-0.2 X10*3/uL) 0.1 (Ref Range: 0.0-0.2 X10*3/uL) 0.1 (Ref Range: 0.0-0.2 X10*3/uL) NRBC Abs Auto 0.000 (Ref Range: 0.0-0.012 X10*3/uL) 0.000 (Ref Range: 0.0-0.012 X10*3/uL) 0.000 (Ref Range: 0.0-0.012 X10*3/uL) * Lab:Free T4 (Free Thyroxine) * Collection Date 01/15/2025 09/17/2024 05/17/2024 Collection Time 11:25 AM 11:38 AM 10:59 AM Order Date 01/15/2025 09/17/2024 05/17/2024 Free T4 (Free Thyroxine) 1.17 (Ref Range: 0.71-1.85 ng/dL) 1.12 (Ref Range: 0.71-1.85 ng/dL) 1.08 (Ref Range: 0.71-1.85 ng/dL) * Examination: G eneral Examination: GENERAL APPEARANCE: p leasant, well nourished, well developed, in no acute distress, calm and relaxed: man. HEAD: a traumatic, normocephalic. EYES: e [...] normal, no s3, or vascular bruits. LUNGS: : diminished breath sounds throughout: rhonchi on the LEFT. BREASTS: no masses palpable bilaterally. ABDOMEN: b [...] lert, oriented. Assessment: * Assessment: 1. B ronchitis - J40 (Primary) N otes :His blood work is within normal limits. His examination showed no serious problems. He has chronic on acute bronchitis and should recover soon. His oxygen saturation is adequate. He was given a prescription for azithromycin. 2 . H istory of depression - Z86.59 N otes :He hasBeen feeling much better while taking the bupropion. The dose was increased and he will continue on it. His depression is beginning to resolve. A follow-up visit was arranged. 3 . E ssential hypertension - I10 N otes :His blood pressure is currently stable. 4 . H ypothyroidism - E03.9 N otes :He remains euthyroid and no change in his regimen as necessary. 5 . V itamin D deficiency, unspecified - E55.9 N otes :His vitamin D supplements were continued. 6 . B PH (benign prostatic hypertrophy) - N40.0 N otes :He has been rising from sleep once a night depending upon fluid intake. We discussed ways to alter his lifestyle so this would be improved. Plan: * Treatment: 2. O thers Start Azithromycin Tablet, 250 MG, like directed, Orally, 2 Tablets on the first day, one tablet the rest of the days, 5 days, 6, Refills 0. * Imaging: * I maging: XR CHEST 2 VIEW PA & LAT * Procedure Codes: * Follow Up: 1 week TV (Reason: TV review cxr done at 01/28/2025) * Images: * Sign off status: Completed true * Provider: Christiano Carey MD Date: 03/30/2024 Generated for Olga Lidia rogers/Helen/eTransmitting on: 11:45 AM EST History and Physical Notes * HPI (History of Present Illness) Category Sub-Category Detail Notes COVID-19 Screening Questions Have you had any new onset fever, chills, cough, congestion, sore throat, shortness of breath, muscle aches?: Yes Cough, Congestion for one week Examination Category Sub-Category Detail Notes General Examination GENERAL APPEARANCE: pleasant , well nourished, well developed, in no acute distress, calm and relaxed: man HEAD: atraumatic, normocep halic EYES: eomi, perrla, anicte tessie, conjugate EARS: normal NOSE: septum intact NECK/THYROID: no jugular venous di stention, no carotid bruit, thyroid normal HEART: no clicks, gallops, murmurs, or rubs, regular rhythm, S1, S2 normal, no s3, or vascular bruits LUNGS: : diminished breath sounds throughout: rhonchi on the LEFT ABDOMEN: bowel sounds normal, no ascites, no [...]
--- OUTSIDE RECORDS SUMMARY | 2025-02-04 10:30 | XMS_ITS ---
Author Organization Maury Carey III, MD Address [address] [place] [address] Care Team Providers Care Decommissioning Well Site Manager Name Role Phone Dr. Maury Carey III Primary Care Provider Allergies Allergen (clinical drug ingredient) Drug/Non Drug Allergy documented on EMR Reaction Allergy Type Onset Date Status No Known Drug Allergy Unknown Drug Allergy Active Seasonale Unknown Drug Allergy Active REASON FOR VISIT Bacterial bronchitis, Hypertension, Hypothyroidism, Benign prostatic hypertrophy Medications Medication SIG [...] TABLE T BY MOUTH EVERY DAY Active Triamcinolone Acetonide 0.025 % 1 application Externally Once a day 07/27/2023 Active Azithromycin 250 MG like directed Orally 2 Tablets on the first day, one tablet the rest of the days 01/28/2025 Active Social History Tobacco Use: Social History Observation Description Date Details (start date - stop date) Never Smoker NA - NA Sex Assigned At : Social History Observation Description Sex Assigned At Male Tobacco Use/Smoking Question Answer Notes Patient is a nonsmoker Additional Findings: Tobacco Non-User Aggressive non-smoker Encounters Encounter Location Date Provider Diagnosis Maury Carey III, MD [address] [place] [address] [place] [address] 02/04/2025 Maury Carey Bronchitis J40 ; Essential hypertension I10 ; Hypothyroidism E03.9 ; BPH (benign prostatic hypertrophy) N40.0 and Overweight E66.3 Assessments Encounter Date Diagnosis (ICD Code) Assessment Notes Treat ment Notes Treatment Clinical Notes 02/04/2025 Bronchitis (ICD-10 - J40) His symptoms are much improved and he has completed the antibiotic. He coughs occasionally but no longer produces phlegm. He will return to the activities of daily living and call me if he relapses. 02/04/2025 Essential hypertension (ICD-10 - I10) His blood pressure has been stable. No changes in his regimen were made today. 02/04/2025 Hypothyroidism (ICD-10 - E03.9) Thyroid function test will be done in the future before his next visit. He is currently asymptomatic and compliant with his regimen. 02/04/2025 BPH (benign prostati c hypertrophy) (ICD-10 - N40.0) He says he rises from sleep once a night to urinate. We have discussed lifestyle modifications he could make to reduce this. 02/04/2025 Overweight (ICD-10 - E66.3) We reviewed his diet and nutrition today. We made a plan to lose weight at a rate of one half of a pound per week. Plan Of Treatment Medication Medication Name Sig Start Date Stop Date Notes buPROPion HCl ER (SR) 100 MG 1 tablet in the morning Orally Once a day 05/24/2023 Vardenafil HCl 20 MG 1 tablet 60 minutes before sexual activity as needed Orally Once a day 09/05/2023 Zinc 100 MG 1 tablet Orally Once a day Vitamin C 1000 MG 1 tablet Orally Once a day Levothyroxine Sodium 50 MCG TAKE 1 TABLE T BY MOUTH EVERY DAY Triamcinolone Acetonide 0.02 5 % 1 application Externally Once a day 07/27/2023 Azithromycin 250 MG like directed Orally 2 Tablets on the first day, one tablet the rest of the days 01/28/2025 Pending Test Test Name Order Date PROFILE, FASTING (COMPREHENSIVE METABOLI C) 02/04/2025 PSA, TOTAL 02/04/2025 CBC w DIFF 02/04/2025 XR CHEST 2 VIEW PA & LAT 02/04/2025 Lipid Panel 02/04/2025 Next Appt Details Follow Up: As Scheduled, Alyssa son: Annual Exam Provider Name:Maury Carey , 03/12/2025 09:00:00 AM, [address] [place] [address] [address], [address], [place], [address], Progress Notes * Javier VUOB:1955 (69 yo M)Acc No.[id number]:02/04/2025 Patient: Quique RUBIO Provider: Christiano Carey MD :1955 A ge:69 Y S ex:Male Date:02/04/2025 [facility] [place] [id number] Subjective: * Chief Complaints: * B acterial bronchitisHypertensionHypothyroidismBenign prostatic hypertrophy * HPI: * : This telehealth visit took place over 15 minutes with the patient at home and me in my office. He gave consent for billing. On his last visit a week ago he had a productive cough and phlegm production which was greenish. He was given a prescription for azithromycin. He has completed that antibiotic. He has begun to feel much better. He is breathing more comfortably and coughing less. He is not producing phlegm anymore.? His appetite has improved and he is sleeping well. He was given a follow-up appointment and will return as scheduled. He was asked to call me if his symptoms worsen. Telehealth L ocation of provider rendering services: { ...} [address] [place] [address] Drive [address] [facility] [address] L ocation of patient: a ddress listed in demographics for today's visit P atient identification confirmed using: N winston, T elehealth method: T elephone only. Patient not visible to care provider. C onsent: P atient verbally consented to treatment, Patient verbally consented to billing insurance company, Patient informed of any privacy concerns related to method of visit T otal time spent with patient (mins) 1 5 * ROS: G eneral/Constitutional: pain o nly normal aches and pains. C hills d enies.?Fatigue a dmits. F ever d enies. E NT: Decreased hearing d enies. R espiratory: Cough n on-productive. C ardiovascular: Chest pain with exertion d [...] a significant other, Gabrielle. * Medications: T akingAzithromycin 250 MG Tablet like directed Orally 2 Tablets on the first day, one tablet the rest of the days Levothyroxine Sodium 50 MCG Tablet TAKE 1 [...] List reviewed and reconciled with the patientTaking Azithromycin 250 MG Tablet like directed Orally 2 Tablets on the first day, one tablet the rest of the days Taking Levothyroxine Sodium 50 MCG Tablet TAKE [...] Known Drug AllergySeasonaleno[Allergies Verified] Objective: * Vitals: Assessment: * Assessment: 1. B ronchitis - J40 (Primary) N otes :His symptoms are much improved and he has completed the antibiotic. He coughs occasionally but no longer produces phlegm. He will return to the activities of daily living and call me if he relapses. 2 . E ssential hypertension - I10 N otes :His blood pressure has been stable. No changes in his regimen were made today. 3 . H ypothyroidism - E03.9 N otes :Thyroid function test will be done in the future before his next visit. He is currently asymptomatic and compliant with his regimen. 4 . B PH (benign prostatic hypertrophy) - N40.0 N otes :He says he rises from sleep once a night to urinate. We have discussed lifestyle modifications he could make to reduce this. 5 . O verweight - E66.3 N otes :We reviewed his diet and nutrition today. We made a plan to lose weight at a rate of one half of a pound per week. Plan: * Treatment: 2. E ssential hypertension L AB: PROFILE, FASTING (COMPREHENSIVE METABOLIC) L AB: PSA, TOTAL L AB: CBC w DIFF L AB: Lipid Panel 3. H ypothyroidism L AB: PROFILE, FASTING (COMPREHENSIVE METABOLIC) L AB: PSA, TOTAL L AB: CBC w DIFF L AB: Lipid Panel 4. B PH (benign prostatic hypertrophy) L AB: PROFILE, FASTING (COMPREHENSIVE METABOLIC) L AB: PSA, TOTAL L AB: CBC w DIFF L AB: Lipid Panel 5. O verweight L AB: PROFILE, FASTING (COMPREHENSIVE METABOLIC) L AB: PSA, TOTAL L AB: CBC w DIFF L AB: Lipid Panel * Procedure Codes: 9 8012 SYNCH AUDIO-ONLY EST SF 10 * Follow Up: A s Scheduled (Reason: Annual Exam) * Images: * Sign off status: Completed true * Provider: Christiano Carey MD Date: 04/07/2024 Generated for Olga Lidia rogers/Helen/eTransmitting on: 11:46 AM EST History and Physical Notes * HPI (History of Present Illness) Category Sub-Category Detail Notes Telehealth Location of [facility] rendering services:: {...} [address] [place] [address] Drive [address] [place] [address] Location of patient:: address listed in demographics for today's visit Patient identification confirmed using:: Name, Telehealth method:: Telephone only. Slime ent not visible to care provider. Consent:: Patient verbally c onsented to treatment, Patient verbally consented to billing insurance company, Patient informed of any privacy concerns related to method of visit Total time spent with patient (mins): 15
[2025-03-06 10:45] LABS: MANUAL DIFF FLAG NO
[2025-03-06 11:20] LABS: Hematocrit 41.1 % (42.0-52.0); Hemoglobin 14.0 g/dl (14.0-18.0); Imm Gran Abs Auto 0.01 X10*3/uL (0.00-0.03); Imm Gran Pct Auto 0.2 % (0.0-0.4); Lymphocytes Absolute Auto 1.8 X10*3/uL (1.2-4.9); Mean Corpuscular HGB Conc 34.1 g/dl (31.0-36.0); Mean Corpuscular Hemoglobin 31.0 pg (27.0-33.0); Mean Corpuscular Volume 90.9 fL (80.0-98.0); NRBC Abs Auto 0.000 X10*3/uL (0.0-0.012); NRBC Pct Auto 0.0 /100WBC (0.0-0.2); Platelet Count 207 X10*3/uL (160-400); Red Blood Count 4.52 X10*6/uL (4.60-5.80); White Blood Count 5.2 X10*3/uL (4.8-10.8)
--- OUTSIDE RECORDS SUMMARY | 2025-03-06 11:44 | XMS_ITS | Clinical Summary ---
Author Organization [facility] Address [address] [place] [address] Phone Care Team Providers Care Silver Miner Blasting Name Role Phone Maury Carey MD Primary Care Provider [phone] Allergies No known active allergies Medications tadalafil [...] Active Active Problems No known active problems Social History Tobacco Use Types Packs/Day Years [...] Results * TSH (06/22/2016 2:16 PM EDT) TSH 2.78 0.35 - 5.50 uIU/mL [facility] 06/22/2016 2:16 PM EDT 06/22/2016 2:16 PM EDT Debora Wen MD LAB BLOOD BKR ORDERABLES Yenny l Result Performing Organization Address [facility] Co de Phone [place] [address] * (ABNORMAL) Lipid panel (06/22/2016 2:16 PM EDT) Cholesterol 193 <200 mg/dL [facility] Triglycerides 198(Abnor shell H) <150 mg/dL [facility] Cholesterol, HDL 43 >40 mg/dL [facility] LDLC 110 <129 mg/dL [facility] Cholesterol/HDL Ratio 4.49 <4.96 [facility] 06/22/2016 2:16 PM EDT 06/22/2016 2:16 PM EDT Debora Wen MD LAB BLOOD BKR ORDERABLES [place] [address] from Last 3 Months or Most Recently Relevant to Health Maintenance Insurance MEDICARE PART A & B Member Subscriber Plan / Payer (Ef fective 2019-Present) Name:Quique Vu Member ID:[id number] Relation to Subscriber:Self Name:Quique Vu Subscriber ID:[id number] Payer ID:[id number] Group ID:Not on file Type:Medicare Address: [employer] [address] [place] [address] [place] [address] MEDICARE PPO BLUE REPLACEMENT MEDICARE PART A & B [facility] MEDICARE PPO BLUE REPLACEMENT MEDICARE PART A & B [facility] MEDICARE PPO BLUE REPLACEMENT MEDICARE PART A & B Member Subscriber Plan / Payer (Ef fective 2019-Present) Name:Quique Vu Member ID:[id number] Relation to Subscriber:Self Name:Quique Vu Lefty Subscriber ID:[id number] Payer ID:[id number] Group ID:Not on file Type:Medicare Address: [employer] [address] [place] [address] [place] [address] MEDICARE PPO BLUE REPLACEMENT MEDICARE PART A & B Member Subscriber Plan / Payer (Ef fective 2019-Present) Name:Quique Vu Member ID:[id number] Relation to Subscriber:Self Name:Horace Quique Olea Subscriber ID:[id number] Payer ID:[id number] Group ID:Not on file Type:Medicare Address: [employer] [address] MEDICARE PPO BLUE REPLACEMENT MEDICARE PART A & B [place] BLUE REPLACEMENT Care Teams Silver Miner Blasting Relationship Specialty Start Date End Date Maury Carey MD [address] [place] [address] [place] [address] PCP - General 01/24/24 Additional Source Comments The information contained in this document represents components of the legal health record. It is not the complete legal health record.[facility]
--- OUTSIDE RECORDS SUMMARY | 2025-03-06 11:45 | XMS_ITS | Clinical Summary ---
[facility] Organization [facility] Address [address] [place] [address] Care Team Providers Care Airconditioning Engineer Name Role Phone Unavailable Primary Care Provider [...]
--- OUTSIDE RECORDS SUMMARY | 2025-03-06 11:45 | XMS_ITS | Patient Health Record ---
Author Organization Maury Carey III, MD Address [address] [place] [address] Care Team Providers Care Lab Head Name Role Phone Dr. Maury Carey III Primary Care Provider Allergies Allergen (clinical drug ingredient) Drug/Non Drug Allergy documented on EMR Reaction Allergy Type Onset Date Status No Known Drug Allergy Unknown Drug Allergy Active Seasonale Unknown Drug Allergy Active Results Component Value Reference Range Notes Complete Blood Count Auto Di ff Reviewed date:05/20/2024 09:38:09 AM Interpretation: Performing Lab:[facility], [address] [place] [phone] Notes/Report: White Blood Count 7.0 4.8-10.8 X10*3/uL [...] 0.0-0.2 /100WBC Neutrophils Absolute Auto 4.0 2.0-8.3 x10*3/uL Imm Gran Abs Auto 0.02 0.00-0.03 X10*3/uL Lymphocytes Absolute Auto 1.9 1.2-4.9 X10*3/uL Monocytes Absolute Auto 0.7 0.1-1.2 X10*3/uL Eosinophils Absolute Auto 0.3 0.0-0.4 X10*3/uL Basophils Absolute Auto 0.1 0.0-0.2 X10*3/uL NRBC Abs Auto 0.000 0.0-0.012 X10*3/uL Comprehensive [place]. Panel Fa st Reviewed date:05/20/2024 09:38:09 AM Interpretation: Performing Lab:[facility], [address] [place] [phone] Notes/Report: Sodium 140 135-145 mmol/L Potassium 4.0 [...] Panel Reviewed date:05/20/2024 09:38:09 AM Interpretation: Performing Lab:[facility], [address] [place] [phone] Notes/Report: Triglycerides 75 <150 mg/dL Desirable Triglyceride: [...] Thyroxine) Reviewed date:05/20/2024 09:38:09 AM Interpretation: Performing Lab:[facility], [address] [place] [phone] Notes/Report: Free T4 (Free Thyroxine) 1.08 0.71-1.85 ng/dL Thyroid Stimulating Hormone Reviewed date:05/20/2024 09:38:09 AM Interpretation: Performing Lab:[facility], [address] [place] [phone] Notes/Report: Thyroid Stimulating Hormone 2.32 0.32-4.0 uIU/mL TSH 3rd Generation ([facility]) Complete Blood Count Auto Di ff Reviewed date:09/18/2024 08:12:50 PM Interpretation: Performing Lab:[facility], [address] [place] [phone] Notes/Report: White Blood Count 5.6 4.8-10.8 X10*3/uL [...] 0.0-0.2 /100WBC Neutrophils Absolute Auto 3.1 2.0-8.3 x10*3/uL Imm Gran Abs Auto 0.02 0.00-0.03 X10*3/uL Lymphocytes Absolute Auto 1.5 1.2-4.9 X10*3/uL Monocytes Absolute Auto 0.6 0.1-1.2 X10*3/uL Eosinophils Absolute Auto 0.3 0.0-0.4 X10*3/uL Basophils Absolute Auto 0.1 0.0-0.2 X10*3/uL NRBC Abs Auto 0.000 0.0-0.012 X10*3/uL Comprehensive [place]. Panel Fa st Reviewed date:09/18/2024 08:12:50 PM Interpretation: Performing Lab:[facility], [address] [place] [phone] Notes/Report: Sodium 142 135-145 mmol/L Potassium 4.3 [...] Panel Reviewed date:09/18/2024 08:12:50 PM Interpretation: Performing Lab:[facility], [address] [place] [phone] Notes/Report: Triglycerides 101 <150 mg/dL Desirable Triglyceride: [...] Antigen Reviewed date:09/18/2024 08:12:50 PM Interpretation: Performing Lab:[facility], [address] [place] [phone] Notes/Report: Prostate Specific Antigen 3.08 <0.05-4.0 ng/mL PSA methodology: [employer] i Chemiluminescent Microparticle Immunoassay (CMIA) Free T4 (Free Thyroxine) Reviewed date:09/18/2024 08:12:50 PM Interpretation: Performing Lab:[facility], [address] [place] [phone] Notes/Report: Free T4 (Free Thyroxine) 1.12 0.71-1.85 ng/dL Thyroid Stimulating Hormone Reviewed date:09/18/2024 08:12:50 PM Interpretation: Performing Lab:[address] [phone] Notes/Report: Thyroid Stimulating Hormone 2.09 0.32-4.0 uIU/mL TSH 3rd Generation ([facility]) Complete Blood Count Auto Di ff Reviewed date:01/15/2025 04:01:51 PM Interpretation: Performing Lab:[facility], [address] [place] [phone] Notes/Report: White Blood Count 5.7 4.8-10.8 X10*3/uL [...] 0.0-0.2 /100WBC Neutrophils Absolute Auto 3.2 2.0-8.3 x10*3/uL Imm Gran Abs Auto 0.02 0.00-0.03 X10*3/uL Lymphocytes Absolute Auto 1.5 1.2-4.9 X10*3/uL Monocytes Absolute Auto 0.6 0.1-1.2 X10*3/uL Eosinophils Absolute Auto 0.3 0.0-0.4 X10*3/uL Basophils Absolute Auto 0.1 0.0-0.2 X10*3/uL NRBC Abs Auto 0.000 0.0-0.012 X10*3/uL Comprehensive [place]. Panel Fa st Reviewed date:01/15/2025 04:01:51 PM Interpretation: Performing Lab:[facility], [address] [place] [phone] Notes/Report: Sodium 140 135-145 mmol/L Potassium 3.9 [...] Alkaline Phosphatase 57 39-117 U/L Lipid Panel Reviewed date:01/15/2025 04:01:51 PM Interpretation: Performing Lab:[facility], [address] [place] [phone] Notes/Report: Triglycerides 78 <150 mg/dL Desirable Triglyceride: [...] with liver disease. Prostate Specific Antigen Reviewed date:01/15/2025 04:01:51 PM Interpretation: Performing Lab:[facility], [address] [place] [phone] Notes/Report: Prostate Specific Antigen 2.38 <0.05-4.0 ng/mL PSA methodology: [employer] i Chemiluminescent Microparticle Immunoassay (CMIA) Vitamin D 25-OH Total Reviewed date:01/15/2025 04:01:51 PM Interpretation: Performing Lab:[address] [phone] Notes/Report: Vitamin D 25-OH Total 50.4 >30 [...] such as LC-MS/MS. Free T4 (Free Thyroxine) Reviewed date:01/15/2025 04:01:51 PM Interpretation: Performing Lab:[facility], [address] [place] [phone] Notes/Report: Free T4 (Free Thyroxine) 1.17 0.71-1.85 ng/dL Thyroid Stimulating Hormone Reviewed date:01/15/2025 04:01:51 PM Interpretation: Performing Lab:[facility], [address] [place] [phone] Notes/Report: Thyroid Stimulating Hormone 1.64 0.32-4.0 uIU/mL TSH 3rd Generation ([facility]) XR chest 2V Reviewed date:02/10/2025 04:17:44 PM Interpretation: Performing Lab: Notes/Report: [address] [address] XRay Report Signed Patient: Quique Vu MR#: [id number] : 1955 Acct:[id number] Age/Sex: 69 / M ADM Date: 01/28/25 Loc: HO.XRAY Attending Dr: Maury Carey MD Ordering Physician: Maury Carey MD Date of Service: 01/28/25 Procedure(s): XR chest 2V Accession Number(s): [id number] cc: Maury Carey MD Reason for Exam: ACUTE COUDH,FATIGUE EXAMINATION: XR CHEST CLINICAL INFORMATION: ACUTE COUDH,FATIGUE COMPARISON: None available. TECHNIQUE: 2 views of the chest were obtained. FINDINGS: The cardiomediastinal silhouette is within normal limits. The lungs are well expanded. Streaky patchy opacities in the right lower lung. No pleural effusion. No pneumothorax.. No pneumothorax. Thoracic spine spondylosis.. XR/XR chest 2V IMPRESSION: Right lower lung streaky patchy opacities concerning for infiltrates. Recommendation is for a follow-up chest series to be obtained following treatment and/or resolution of symptoms to assure resolution of this appearance. Electronically signed by: Myke Dao MD 01/28/2025 02:26 PM EST Dictated By: Myke Dao MD Signed By: <Electronically signed by Myke Dao MD in OV> 01/28/25 1426 DD/ 1417 TD/TT: 01/28/25 1420 Electric Distribution Checker: [place] [address] XRay Report Signed Patient: Quique Vu MR#: [id number] : 1955 Acct:[id number] Age/Sex: 69 / M ADM Date: 01/28/25 Loc: HO.XRAY Attending Dr: Maury Carey MD Ordering Physician: Maury Carey MD Date of Service: 01/28/25 Procedure(s): XR tom st 2V Accession Number(s): [id number] cc: Maury Carey MD Reason for Exam: ACU TE COUDH,FATIGUE EXAMINATION: XR CHEST CLINICAL INFORMATION: ACUTE COUDH,FATIGUE COMPARISON: None available. TECHNIQUE: 2 views of the chest were obtained. FINDINGS: The cardiomediastina l silhouette is within normal limits. The lungs are well expanded. Streaky patchy opaci ties in the right lower lung. No pleural effusion. No pneumothorax.. No pneumothorax. Thoracic spine spondylosis.. X R/XR chest 2V IMPRESSION: Right lower lung str eaky patchy opacities concerning for infiltrates. Recommendation is fo r a follow-up chest series to be obtained following treatment and/or resolution of symptoms to assure resolution of this appearance. Electronically hawk d by: Myke Dao MD 01/28/2025 02:26 PM EST Dictated By: Myke Dao MD Signed By: <Electronically signed by Myke Dao MD in OV> 01/28/25 1426 DD/ 1417 TD/TT: 01/28/25 1420 Electric Distribution Checker: HB Complete Blood Count Auto Di ff Reviewed date:02/10/2025 04:17:43 PM Interpretation: Performing Lab:[facility], [address] [place] [phone] Notes/Report: White Blood Count 6.6 4.8-10.8 X10*3/uL Red Blood Count 4.79 4.60-5.80 X10*6/uL Hemoglobin 14.5 14.0-18.0 g/dl Hematocrit 42.9 42.0-52.0 % Mean Corpuscular Volume 89.6 80.0-98.0 fL Mean Corpuscular Hemoglobin 30.3 27.0-33.0 pg Mean Corpuscular HGB Conc 33.8 31.0-36.0 g/dl Red Cell Distribution Width 13.0 11.0-16.0 % Platelet Count 195 160-400 X10*3/uL Mean Platelet Volume 9.8 9.4-12.4 fL Neutrophils Percent Auto 54.8 45-73 % Imm Gran Pct Auto 0.3 0.0-0.4 % Lymphocytes Percent Auto 30.7 20-40 % Monocytes Percent Auto 9.7 2-11 % Eosinophils Percent Auto 3.7 0-4 % Basophils Percent Auto 0.8 0-2 % NRBC Pct Auto 0.0 0.0-0.2 /100WBC Neutrophils Absolute Auto 3.6 2.0-8.3 x10*3/uL Imm Gran Abs Auto 0.02 0.00-0.03 X10*3/uL Lymphocytes Absolute Auto 2.0 1.2-4.9 X10*3/uL Monocytes Absolute Auto 0.6 0.1-1.2 X10*3/uL Eosinophils Absolute Auto 0.2 0.0-0.4 X10*3/uL Basophils Absolute Auto 0.1 0.0-0.2 X10*3/uL NRBC Abs Auto 0.000 0.0-0.012 X10*3/uL Comprehensive Met. Panel Reviewed date:02/10/2025 04:17:44 PM Interpretation: Performing Lab:[facility], [address] [place] [phone] Notes/Report: Sodium 140 135-145 mmol/L Potassium 3.7 3.3-5.1 mmol/L Chloride 108 96-108 mmol/L Carbon Dioxide 20 22-29 mmol/L Anion Gap 16 12-20 Blood Urea Nitrogen 23 9-16 mg/dL Creatinine 1.54 0.5-1.4 mg/dL Creatinine Clr Calc Pharmacy 46.0 eGFR (calculated from the MDRD study equation) and eCrCl (calculated from the Cockcroft-Gault equation) are based on different parameters and may not yield comparable results. If eCrCl result is absurd, please check patient's height/weight. Estimated Glomerular Filt Rate 45 Chronic Kidney Disease: Estimated GFR < 60 mL/min/1.73m2 Severe Kidney Disease: Estimated GFR < 15 mL/min/1.73m2 Glucose Random 99 60-115 mg/dL Calcium 9.4 8.4-10.2 mg/dL Bilirubin Total 0.8 0.0-1.0 mg/dL Aspartate Amino Transferase 28 5-37 U/L Alanine Aminotransferase 25 0-40 U/L Total Protein 7.1 6.5-8.0 g/dL Albumin Level 4.4 3.5-5.0 g/dL Alkaline Phosphatase 56 39-117 U/L SARS-CoV2/FLU/RSV Reviewed date:02/10/2025 04:17:44 PM Interpretation: Performing Lab:[facility], [address] [place] [phone] Notes/Report: Influenza A PCR NEGATIVE Negative Influenza B PCR NEGATIVE Negative Resp Syncy Virus RNA Qual PCR NEGATIVE Negative SARS COV2 PCR INHOUSE NEGATIVE Negative All test results must be correlated with clinical findings. Negative results do not preclude SARS-CoV2, influenza A virus, influenza B virus and/or RSV infection and should not be used as the sole basis for treatment or other patient management decisions. Negative results must be combined with clinical observations, patient history, and epidemiological information. This test has not been evaluated for monitoring treatment of infection. This test has been authorized by the FDA under an Emergency Use Authorization (EUA) for use by authorized laboratories. Testing performed on the [employer] Gene[employer]pert utilizing real-time RT-PCR. All SARS CoV2 and positive influenza A/B results are reported to [facility]. CT chest wo con Reviewed date:02/10/2025 04:17:44 PM Interpretation: Performing Lab: Notes/Report: [address] [address] [address] Scan Report Signed Patient: Quique Vu MR#: [id number] : 1955 Acct:[id number] Age/Sex: 69 / M ADM Date: 02/09/25 Loc: .ED Attending Dr: Ordering Physician: Eleazar Gupta MD Date of Service: 02/09/25 Procedure(s): CT chest wo IV con Accession Number(s): [id number] cc: Maury Carey MD; Eleazar Gupta MD Report Number: [id number]: Total DLP = 252.00 mGy-cm Reason for Exam: ? pneumonia CLINICAL HISTORY: ? pneumonia CT chest without contrast Comparison: CR/SR - XR CHEST 2 VIEWS - 01/28/25 14:17 EST Findings: The heart size is normal. The visualized thyroid and mediastinum are unremarkable. The lungs are clear. The upper abdomen is unremarkable. No acute fractures. IMPRESSION: 1. Unremarkable chest CT. This document has been electronically signed by: Heron Tao MD on 02/09/2025 09:20:49 Dictated By: Heron Tao MD Signed By: <Electronically signed by Heron Tao MD in OV> 02/09/25921 DD/ 9 TD/TT: 02/09/25919 Electric Distribution Checker: [address] [address] [address] Scan Report Signed Patient: Quique Vu MR#: [id number] : 1955 Acct:[id number] Age/Sex: 69 / M ADM Date: 02/09/25 Loc: HO.ED Attending Dr: Ordering Physician: Eleazar Gupta MD Date of Service: 02/09/25 Procedure(s): CT tom st wo IV con Accession Number(s): [id number] cc: Maury Carey MD; Eleazar Gupta MD Report Number: [id number]: Total DLP = 252.00 mGy-cm Reason for Exam: ? pneumonia CLINICAL HISTORY: ? pneumonia CT chest without contrast Comparison: CR/SR - XR CHEST 2 VIEWS - 01/28/25 14:17 EST Findings: The heart size is normal. The visualized thyro id and mediastinum are unremarkable. The lungs are clear. The upper abdomen is unremarkable. No acute fractures. IMPRESSION: 1. Unremarkable ches t CT. This document has be en electronically signed by: Heron Tao MD on 02/09/2025 09:20:49 Dictated By: Heron Tao MD Signed By: <Electronically signed by Heron Tao MD in OV> 02/09/25921 DD/ 9 TD/TT: 02/09/25919 Electric Distribution Checker: Complete Blood Count Auto Di ff (Not yet reviewed by provider) Interpretation: Performing Lab:[facility], [address] [place] [phone] Notes/Report: White Blood Count 5.2 4.8-10.8 X10*3/uL Red Blood Count 4.52 4.60-5.80 X10*6/uL Hemoglobin 14.0 14.0-18.0 g/dl Hematocrit 41.1 42.0-52.0 % Mean Corpuscular Volume 90.9 80.0-98.0 fL Mean Corpuscular Hemoglobin 31.0 27.0-33.0 pg Mean Corpuscular HGB Conc 34.1 31.0-36.0 g/dl Red Cell Distribution Width 13.8 11.0-16.0 % Platelet Count 207 160-400 X10*3/uL Mean Platelet Volume 9.9 9.4-12.4 fL Neutrophils Percent Auto 45.3 45-73 % Imm Gran Pct Auto 0.2 0.0-0.4 % Lymphocytes Percent Auto 35.0 20-40 % Monocytes Percent Auto 10.9 2-11 % Eosinophils Percent Auto 7.6 0-4 % Basophils Percent Auto 1.0 0-2 % NRBC Pct Auto 0.0 0.0-0.2 /100WBC Neutrophils Absolute Auto 2.4 2.0-8.3 x10*3/uL Imm Gran Abs Auto 0.01 0.00-0.03 X10*3/uL Lymphocytes Absolute Auto 1.8 1.2-4.9 X10*3/uL Monocytes Absolute Auto 0.6 0.1-1.2 X10*3/uL Eosinophils Absolute Auto 0.4 0.0-0.4 X10*3/uL Basophils Absolute Auto 0.1 0.0-0.2 X10*3/uL NRBC Abs Auto 0.000 0.0-0.012 X10*3/uL Reason For Referral No Information Medications Medication SIG (Take, Route, Frequency, Duration) Notes Start Date End Date Status Triamcinolone Acetonide 0.025 % 1 application Externally Once a day 07/27/2023 Active Levothyroxine Sodium 50 MCG TAKE 1 TABLE T BY MOUTH EVERY DAY for 90 Active buPROPion HCl ER (SR) 100 MG 1 tablet Orally Once a day for 90 days Active Vardenafil HCl 20 MG 1 tablet 60 minutes before sexual activity as needed Orally Once a day 09/05/2023 Active Zinc 100 MG 1 tablet Orally Once a day Active Vitamin C 1000 MG 1 tablet Orally Once a day Active Azithromycin 250 MG like directed Orally 2 Tablets on the first day, one tablet the rest of the days 01/28/2025 Active Immunizations Vaccine Route Administration Date Status [...] Status W/U Status Risk Notes Problem Hypothyroidism (57981557) Hypothyroidism (E03.9) Active confirmed Thyroid function test will be done in the future before his next visit. He is currently asymptomatic and compliant with his regimen. Problem Vitamin D deficiency (56463304) Vitamin D deficiency, unspecified (E55.9) Active confirmed His vitamin D supplements were continued. Problem 20719252 Balanitis (N48.1) Active confirmed This has completely resolved Problem Dermatitis (438117464) Dermatitis (L30.9) Active confirmed No significant cutaneous lesions were present today. Problem Benign prostatic hypertrophy without outflow obstruction (713185341) BPH (benign prostatic hypertrophy) (N40.0) Active confirmed He says he rises from sleep once a night to urinate. We have discussed lifestyle modifications he could make to reduce this. Problem Essential hypertension (20603421) Essential hypertension (I10) Active confirmed His blood pressure has been stable. No changes in his regimen were made today. Problem History of depression (604297401) History of depression (Z86.59) Active confirmed He hasBeen feeling much better while taking the bupropion. The dose was increased and he will continue on it. His depression is beginning to resolve. A follow-up visit was arranged. Vital Signs Heart Rate 78 /min 01/28/2025 Temperature 97.8 degrees Fahrenheit 01/28/2025 Blood pressure diastolic 79 mm Hg 01/28/2025 Height 70 in 01/28/2025 Blood pressure systolic 135 mm Hg 01/28/2025 Weight 169 lbs 01/28/2025 BMI 24.25 kg/m2 01/28/2025 Encounters Encounter Location Date Provider Diagnosis Maury Carey III, MD [address] [place] [address] [place] [phone] 05/21/2024 Maury Carey Essential hypertensi on I10 ; Hypothyroidism E03.9 ; Vitamin D deficiency, unspecified E55.9 and BPH (benign prostatic hypertrophy) N40.0 Maury Carey III, MD [address] [place] [address] [place] [phone] 09/20/2024 Maury Carey Essential hypertensi on I10 ; BPH (benign prostatic hypertrophy) N40.0 ; Hypothyroidism E03.9 ; Vitamin D deficiency, unspecified E55.9 and History of depression Z86.59 Maury Carey III, MD [address] [place] [address] [address] [place] [phone] 01/28/2025 Maury Aurelio Bronchitis J40 ; His tory of depression Z86.59 ; Essential hypertension I10 ; Hypothyroidism E03.9 ; Vitamin D deficiency, unspecified E55.9 and BPH (benign prostatic hypertrophy) N40.0 Maury Carey III, MD [address] [place] [address] [place] [phone] 02/04/2025 Maury Carey Bronchitis J40 ; Essential hypertension I10 ; Hypothyroidism E03.9 ; BPH (benign prostatic hypertrophy) N40.0 and Overweight E66.3 Maury Carey III, MD [address] [place] [address] [address] [place] [address] 01/15/2025 Maury Carey Assessments Encounter Date Diagnosis (ICD Code) Assessment Notes Treat ment Notes Treatment Clinical Notes 05/21/2024 Hypothyroidism (ICD-10 - E03.9) He has [...] this level is treatment will be adjusted. 01/28/2025 Bronchitis (ICD-10 - J40) His blood [...] to resolve. A follow-up visit was arranged. 02/04/2025 Bronchitis (ICD-10 - J40) His symptoms are much improved and he has completed the antibiotic. He coughs occasionally but no longer produces phlegm. He will return to the activities of daily living and call me if he relapses. 02/04/2025 Essential hypertension (ICD-10 - I10) His blood pressure has been stable. No changes in his regimen were made today. 05/21/2024 Vitamin D deficiency , unspecified (ICD-10 - E55.9) He has continued on his vitamin D supplementation. 09/20/2024 Hypothyroidism (ICD-10 - E03.9) He remains euthyroid and no change in his regimen as necessary. 01/28/2025 Essential hypertension (ICD-10 - I10) His blood pressure is currently stable. 02/04/2025 Hypothyroidism (ICD-10 - E03.9) Thyroid function test will be done in the future before his next visit. He is currently asymptomatic and compliant with his regimen. 05/21/2024 BPH (benign prostati c hypertrophy) (ICD-10 - N40.0) We have discussed lifestyle modifications that he could make to reduce nocturia. He admits to once a night. 09/20/2024 Vitamin D deficiency , unspecified (ICD-10 - E55.9) His vitamin D supplements were continued. 01/28/2025 Hypothyroidism (ICD-10 - E03.9) He remains euthyroid and no change in his regimen as necessary. 02/04/2025 BPH (benign prostati c hypertrophy) (ICD-10 - N40.0) He says he rises from sleep once a night to urinate. We have discussed lifestyle modifications he could make to reduce this. 09/20/2024 History of depressio n (ICD-10 - Z86.59) He hasBeen feeling much better while taking the bupropion. The dose was increased and he will continue on it. His depression is beginning to resolve. A follow-up visit was arranged. 01/28/2025 Vitamin D deficiency , unspecified (ICD-10 - E55.9) His vitamin D supplements were continued. 02/04/2025 Overweight (ICD-10 - E66.3) We reviewed his diet and nutrition today. We made a plan to lose weight at a rate of one half of a pound per week. 01/28/2025 BPH (benign prostati c hypertrophy) (ICD-10 - N40.0) He has been rising from sleep once a night depending upon fluid intake. We discussed ways to alter his lifestyle so this would be improved. Plan Of Treatment Pending Test Test Name Order Date PROFILE, FASTING (COMPREHENSIVE METABOLI C) 01/17/2024 PROFILE, FASTING (COMPREHENSIVE METABOLI C) 01/11/2023 PROFILE, FASTING (COMPREHENSIVE METABOLI C) 09/20/2024 PROFILE, FASTING (COMPREHENSIVE METABOLI C) 07/27/2023 PROFILE, FASTING (COMPREHENSIVE METABOLI C) 12/12/2019 PROFILE, FASTING (COMPREHENSIVE METABOLI C) 08/18/2022 PROFILE, FASTING (COMPREHENSIVE METABOLI C) 08/15/2020 PROFILE, FASTING (COMPREHENSIVE METABOLI C) 02/04/2025 PROFILE, FASTING (COMPREHENSIVE METABOLI C) 05/21/2024 PROFILE, RANDOM (COMPREHENSIVE METABOLIC ) 05/24/2023 MAGNESIUM 12/12/2019 LIPID PANEL 08/18/2022 LIPID PANEL 01/17/2020 LIPID PANEL 12/12/2019 T4 (THYROXINE) 11/15/2022 FREE T4 (FT4) 05/24/2023 FREE T4 (FT4) 01/17/2020 FREE T4 (FT4) 08/15/2020 TSH (THYROID STIMULATING HORMONE) 2024 TSH (THYROID STIMULATING HORMONE) 2023 TSH (THYROID STIMULATING HORMONE) 2022 TSH (THYROID STIMULATING HORMONE) 2024 TSH (THYROID STIMULATING HORMONE) 2023 TSH (THYROID STIMULATING HORMONE) 2023 TSH (THYROID STIMULATING HORMONE) 2022 TSH (THYROID STIMULATING HORMONE) 2019 TSH (THYROID STIMULATING HORMONE) 2020 IRON + IBC (FE) 11/15/2022 FERRITIN 11/15/2022 PSA, TOTAL 01/17/2020 PSA, TOTAL 05/21/2024 PSA, TOTAL 01/11/2023 PSA, TOTAL 09/20/2024 PSA, TOTAL 08/18/2022 PSA, TOTAL 02/04/2025 PSA, TOTAL 12/12/2019 PSA, TOTAL+FREE 01/17/2020 CBC w DIFF 08/15/2020 CBC w DIFF 11/15/2022 CBC w DIFF 05/21/2024 CBC w DIFF 09/20/2024 CBC w DIFF 08/18/2022 CBC w DIFF 02/04/2025 CBC w DIFF 12/12/2019 TESTOSTERONE, TOTAL 12/12/2019 TESTOSTERONE, TOTAL 01/17/2020 XR CHEST 2 VIEW PA & LAT 02/04/2025 XR CHEST 2 VIEW PA & LAT 01/28/2025 US CAROTID BILATERAL DOPPLER 12/12/2019 VITAMIN D 25-OH TOTAL 11/15/2022 CBC WITH AUTO DIFF 01/17/2024 CBC WITH AUTO DIFF 07/27/2023 CBC WITH AUTO DIFF 01/11/2023 CBC WITH AUTO DIFF 05/24/2023 Complete Blood Count Auto Diff Lipid Panel 02/04/2025 Lipid Panel 01/17/2024 Lipid Panel 07/27/2023 Lipid Panel 05/21/2024 Lipid Panel 01/11/2023 Lipid Panel 09/20/2024 Vitamin D 25-OH Total 09/20/2024 Vitamin D 25-OH Total 01/11/2023 Free T4 (Free Thyroxine) 01/11/2023 Free T4 (Free Thyroxine) 09/20/2024 Free T4 (Free Thyroxine) 01/17/2024 Free T4 (Free Thyroxine) 07/27/2023 Free T4 (Free Thyroxine) 05/21/2024 Next Appt Details Provider Name:Maury Grijalvane , 03/12/2025 09:00:00 AM, [address] [place] [address] [address], [place], [address], Insurance Providers Payer Name Payer Address Payer Phone Subscriber Number Group Number Insured Name Patient Relationship to Insured Coverage Start Date Coverage End Date [facility] [address] [place], [place] [id number] [phone] [id number] Quique Rincon Self - patient is the insured MEDICARE NGS [address] [place] [phone] [id number] Quique Rincon Self - patient is the insured Medical (General) History Medical History History ICD Code HTN (hypertension) I10 depression maternal history of breast cancer cold weather dermatitis Surgical History Surgery Date(Month/Year) Tonsilectomy
--- OUTSIDE RECORDS SUMMARY | 2025-03-06 11:45 | XMS_ITS | Continuity of Care Document ---
Author Organization [place] [facility] Address [address] [address] Assessment Encounter Date Assessment Date Assessment LastModified by Organization Details LastModified Time 02/25/2025 02/25/2025 Assessment - Superficial fungal infection (tinea corporis/tinea versicolor) affecting foot, arm, and back - No evidence of steroid-induced skin changes - No concern for other dermatologic conditions at this time Plan - Continue application of clotrimazole cream to affected areas twice daily until complete resolution of the rash. Apply to any new or existing lesions, including the small of the back, and do not discontinue prematurely; continue until the skin is fully healed. - Prioritize use of antifungal creams over steroid creams for cutaneous fungal infections. Use antifungal therapy for 4 to 6 weeks as needed for persistent lesions. - Avoid use of topical steroid creams unless specifically indicated; minimize steroid exposure when possible. - Consider use of selenium sulfide shampoo (Selsun Blue) as a body wash in the shower once or twice weekly for maintenance and prevention of superficial fungal infections such as tinea versicolor or tinea corporis. - Avoid use of unknown or unverified topical products, as these may cause allergic reactions or other adverse effects. - Return for evaluation if cutaneous symptoms worsen or fail to improve with current therapy. Prescription - Clotrimazole cream: apply to affected areas twice daily until rash completely resolves - Selenium sulfide shampoo (Selsun Blue): use as a body wash once to twice weekly for maintenance and prevention of superficial fungal infections [email or web address] Not available 02/25/2025 10:14:55 Plan of Treatment Reminders Order Date Submit Date Provider Last Modified By Organization Details Last Modified Time Details Appointments Dermatolo gy CSE 15 2025 09:00A M OMAYRA TUBBS Not available Not available Not available Lab None recorded. Referral None recorded. Procedures None recorded. Surgeries None recorded. Imaging None recorded. Medication Orders None recorded. Patient TargetsNo targets recorded. Patient InstructionsNo instructions recorded. Reason for Referral None Reported. Problems Name Problem SNOMED Code Status Onset Date Resolution Date Notes Provider Name and Address Organization Details Recorded Time Mild depression 424888344 Active 2024 [address] [address], [place], [address], [facility] 11:02:19 Primary hypothyroidism 62553180 Active 20[address] [address], [place], [address], [facility] 11:02:34 Problem Notes None recorded. Procedures Surgical History Date Name Laterality Status Provider Name and Address Organization Details Recorded Time Cryosurgery completed OMAYRA TUBBS [address] [place] [address], [place], [address], [facility] 09/17/2024 12:58:32 Imaging Results None recorded. Procedure Notes None recorded. Medical Equipment None Reported. Allergies No known drug allergies Medications Name Sig Start Date Stop Date Status Note LastModified by Organization Details LastModified Time azithromyci n 250 mg tablet LIKE DIRECTED ORALLY 2 TABLETS ON THE FIRST DAY, ONE TABLET THE REST OF THE DAYS 5 DAYS active Not Available Not Available No t Available bupropion HCl SR 100 mg tablet,12 hr sustained-r elease TAKE 1 TABLET BY MOUTH EVERY DAY FOR 90 DAYS active Not Available Not Available No t Available levothyroxi ne 50 mcg tablet TAKE 1 TABLET BY MOUTH EVERY DAY active Not Available Not Available No t Available tobramycin 0.3 % eye drops PLACE 1 DROP INTO THE LEFT EYE EVERY 4 HOURS. 02/22 completed Not Available Not Available Not Available clotrimazol e-betametha sone 1 %-0.05 % topical cream APPLY TOPICALLY 2 TIMES A DAY FOR 21 DAYS. active Not Available Not Available No t Available ketoconazol e 2 % topical cream APPLY 1 APPLICATI ON EXTERNALL Y TWICE A DAY FOR 10 DAYS active Not Available Not Available No t Available Vitals None Recorded Social History None recorded. Functional Status None recorded. Mental Status None recorded. Family History Nothing Reported. Medical History No medical history recorded. Past Encounters Encounter ID Performer Location Encounter Start Date Encounter Closed Date Diagnosis/Indication Diagnosis SNOMED-CT Code Diagnosis ICD10 Code Diagnosis IMO Codes Diagnosis Note [id number] OMAYRA TUB[facility] [address] [facility],[address] [place] [address] 02/25/2025 09:59:01 02/25/2025 10:19:26 Tinea corporis 63118001 B35.4 41993 Health Concerns Section Related Observation LastModified by Organization Detai ls LastModified Time None Recorded Concern Status LastModified by Organization Details LastModified Time None Recorded Payers Encounter Date Sequence Insurance Name Policy Number Policy Meyers Covered Member ID Meyers Member ID Guarantor Name 02/25/2025 1 [facility]: [place] BLUE (MEDICARE REPLACEMENT PPO) [id number] Quique Vu [id number] Madsendavidrodney Notes Date Note Type Note Provider Name and Address Organization Details Recorded Time 02/25/2025 text/html ROS as noted in the HPI Quique Vu, age 69, male- History of round, itchy rashes on foot and other areas, intermittent over several years- Rash on foot resolved with clotrimazole and betamethasone cream approximately 2 years ago- No rash or symptoms last year- New round, itchy rash present for about 3 weeks, worst area on arm, small area also affected- Occasional rash between toes, managed with powder- Intermittent itchy spots on arm this year, mild severity- Itchy area on small of back, new onset- Uses clotrimazole cream as needed for rashes- Reports house is very dry Has rx cream of clotrimazole, ketoconazole 2%, TAC 0.1% cream, clotrimazole w/ betamethasone and ruxolitinib. OMAYRA TUBBS [address], [address], [place], [address], [facility] - [facility] 02/25/2025 10:16:33
--- OUTSIDE RECORDS SUMMARY | 2025-03-06 11:47 | XMS_ITS | Data Portability ---
Author Organization [place] [facility] [employer] Address [address] [place] [address] Assessment Encounter Date Assessment Date Assessment LastModified [...] stressed. Return 1 year for repeat CSE Not available 08/16/2024 11:57:44 02/25/2025 02/25/2025 Assessment - Superficial fungal infection [...] maintenance and prevention of superficial fungal infections Not available 02/25/2025 10:14:55 Plan of Treatment [...] Address Organization Details Recorded Time Mild depression 980128457 Active 2024 Camelia Tracy [address] [place] [address], [address], [place] [facility] 11:02:19 Primary hypothyroidism 54544018 Active 2024 Camelia Tracy [address] [place] [address], [address], [place] [facility] 11:02:34 Problem Notes None recorded. Procedures Surgical History Date Name Laterality Status Provider Name and Address Organization Details Recorded Time Cryosurgery completed OMAYRA TUBBS [address] [place] [address], [phone], [place] [facility] 09/17/2024 12:58:32 Imaging Results None recorded. [...] ICD10 Code Diagnosis IMO Codes Diagnosis Note [id number] OMAYRA TUBBS [address] [place] [address] 08/16/2024 10:58:28 08/16/2024 11:19:53 Inflamed seborrheic keratosis 343461532 L82.0 95198 Seborrheic keratosis 394 298046 L82.1 42483 Solar lentigo 34962976 L 81.4 1102 Melanocyti c nevus of trunk 373875342 D22.5 150832 [id number] OMAYRA TUBBS [address] [place] [address] 09/17/2024 12:45:05 09/17/2024 13:02:04 Inflamed seborrheic keratosis 732760616 L82.0 72422 [id number] OMAYRA TUBBS [address] [place] [address] 02/25/2025 09:59:01 02/25/2025 10:19:26 Tinea corporis 21262031 B35.4 81959 Health Concerns Section Related Observation LastModified by Organization Detai ls LastModified Time None Recorded Concern Status LastModified by Organization Details LastModified Time None Recorded Advance Directives Directive None Recorded Payers Insurance Date Sequence Insurance Name Policy Number Policy Meyers Covered Member ID Meyers Member ID Guarantor Name 02/23/2025 1 [employer] (MEDICARE [place]ACEMENT PPO) [id number] Quique Vu [id number] Quique Vu 08/16/2024 2 [place] [employer] Quique Vu [id number] Quique Vu Notes Date Note Type [...] stuck-on spots on the skin.- Lived in [place] for 22 years, aware of sun exposure but informed that seborrheic keratosis is genetic.- No recent full skin exam; primary care physician has checked skin in the past.- Uses two skin creams for spots similar to athlete's foot, which have been present for the last year.- Reports having skin tags, which are not a concern. OMAYRA TUBBS [address] [place] [address], [phone], [facility] - [facility] 08/16/2024 12:00:13 09/17/2024 text/html Patient here for ln2 treatment of irritated lesions on his back. OMAYRA TUBBS [address] [place] [address] [address], [place], [address], [place] [facility] 09/17/2024 12:58:58 02/25/2025 text/html ROS as noted in the [...] w/ betamethasone and ruxolitinib. OMAYRA TUBBS [address] [facility], [facility] [address], [place] [address], [place] - [facility] 02/25/2025 10:16:33
[2025-03-06 12:02] LABS: Alanine Aminotransferase 31 U/L (0-40); Albumin Level 4.1 g/dL (3.5-5.0); Alkaline Phosphatase 54 U/L (39-117); Anion Gap 10 (12-20); Aspartate Amino Transferase 26 U/L (5-37); Blood Urea Nitrogen 24 mg/dL (9-16); Calcium 9.1 mg/dL (8.4-10.2); Carbon Dioxide 24 mmol/L (22-29); Chloride 111 mmol/L (96-108); Cholesterol 198 mg/dL (<200); Estimated Glomerular Filt Rate 53; HDL Cholesterol 48 mg/dL (>40); Potassium 4.0 mmol/L (3.3-5.1); Sodium 141 mmol/L (135-145); Total Protein 6.8 g/dL (6.5-8.0); Triglycerides 80 mg/dL (<150)
[2025-03-06 12:21] LABS: Prostate Specific Antigen 1.66 ng/mL (<0.05-4.0)
== END 2025-03-06 10:31 | disposition home or self-care (01) ==
LOC: HO.LAB 10:30
PROVIDERS: PCP Internal Medicine Medical Oncology; Visit Provider Internal Medicine Medical Oncology
DX: Z12.5 Encounter for screening for malignant neoplasm of prostate (principal); N40.0 Benign prostatic hyperplasia without lower urinary tract symptoms; I10 Essential (primary) hypertension; E66.3 Overweight; E03.9 Hypothyroidism, unspecified
CPT/HCPCS: 36415; 80053; 80061; 84153; 85025